=== PATIENT | female | born 1975 | race Two or more races ===

== ENCOUNTER 2016-11-06 20:00 | Observation (INO) | payer OTHER ==
[2016-09-12 04:50] VITALS: BP 115/58
[~2016-11-06] VITALS: Ht 152.4 cm; Wt 80.7 kg
[~2016-11-06 20:00] MED LIST: AMOX1TAB61 PO; AZIT250T6 PO; CALC200T3 PO; GLYB5TAB3 PO; LEVO150T5 PO; LEVO175T5 PO; METF500T4 PO; MULT-246 PO; NORE1TAB11 PO; OXYC-323 PO; PNV1TABL25 PO; PROAIR HFA8.5 GM INH; RANI150T2 PO; RANI150T6 PO
[2016-11-06] MEDS: IV RINGERS,LACTATED 1000ML 1,000 ML IV SCH (20:25)
[2016-11-06] MEDS ORDERED: FENTANYL PF 100 MCG/2 ML VIAL. ONE (21:04)
[2016-11-06] MEDS ORDERED: FENTANYL PF 100 MCG/2 ML VIAL. IV ONE (22:30)
[2016-11-06 22:42] LABS: BASO % 0 % (0-3); BILIRUBIN,URINE NEGATIVE (NEG); EOS % 1 % (0-3); GLUCOSE,URINE NEGATIVE (NEG); HEMATOCRIT 37.3 % (36.0-47.0); HEMOGLOBIN 11.6 g/dL (12.0-15.5); LYMPH # 2.9 x10^3/uL (1.0-4.8); LYMPH % 18 % (24-48); MEAN CORPUSCULAR HEMOGLOBIN 26 pg (25-35); MEAN CORPUSCULAR HGB CONC 31 g/dL (31-37); MEAN CORPUSCULAR VOLUME 82 fL (79-100); MONO % 5 % (0-9); NEUT % 76 % (31-73); NITRITE,URINE NEGATIVE (NEG); PH,URINE 6.5; PLATELET COUNT 352 x10^3/uL (140-400); PROTEIN,URINE NEGATIVE (NEG-TRACE); RED BLOOD COUNT 4.54 x10^6/uL (3.50-5.40); RED CELL DISTRIBUTION WIDTH 15.3 % (11.5-14.5); UROBILINOGEN,URINE 0.2 mg/dL (0.2 mg/dL); WHITE BLOOD COUNT 16.2 x10^3/uL (4.0-11.0)
[2016-11-06 22:47] LABS: BACTERIA,URINE FEW /HPF (0-FEW); RBC,URINE OCC /HPF (0-2); SQUAMOUS EPITHELIAL CELL,UR MOD /LPF
[2016-11-06 22:58] LABS: ALBUMIN/GLOBULIN RATIO 0.7 (1.0-1.7); CALCIUM 9.1 mg/dL (8.5-10.1); CREATININE 0.7 mg/dL (0.6-1.0); GFR 92.7; POTASSIUM 4.3 mmol/L (3.5-5.1); TOTAL BILIRUBIN 0.3 mg/dL (0.2-1.0); TOTAL PROTEIN 7.3 g/dL (6.4-8.2)
[2016-11-07] MEDS ORDERED: ZOLPIDEM 5 MG TABLET. PO PRN ×2 (00:45)
[2016-11-07] MEDS ORDERED: CEFAZOLIN 1GM IVPB FOR OMNI 50 ML IV ONE (01:00)
[2016-11-07] MEDS: IV RINGERS,LACTATED 1000ML 1,000 ML IV SCH (01:04)
--- NOTE | 2016-11-07 01:40 | RAD ---
PROCEDURE OB ultrasound dated 11/06/2016. HISTORY Pelvic pressure started at 6 o'clock this evening. Evaluate cervical length. TECHNIQUE Transabdominal and transvaginal imaging performed. COMPARISON None. FINDINGS Single intrauterine gestation identified in cephalic presentation. Positive movement and cardiac activity. The heart rate is estimated at 147 beats per minute. Amniotic fluid volume appears appropriate. The placenta is posterior in location without evidence of placenta previa. Cervical length is estimated at 5 centimeter. Possible small fibroid at the right lateral uterine body measuring about 2.1 centimeter maximum dimension. Biometric data is as follows. BPD 5.3 centimeter 22 weeks 1 day. HC 20.0 centimeter 22 weeks 1 day. AC 17.0 centimeter 22 weeks 0 days. FL 4.1 centimeter 23 weeks 3 days. Overall, the estimated sonographic gestational age is 22 weeks 3 days for an estimated sonographic date of delivery of 03/09/2017. brain not well evaluated due to poor imaging plane. spine unremarkable. There is a 3 vessel cord. stomach, urinary bladder and both kidneys are seen. There is a 4 chamber heart. There is a somewhat bulbous appearance extending laterally on the right atrium which is of uncertain the etiology. This is seen on several images. IMPRESSION - Single viable intrauterine gestation with estimated sonographic gestational age of 22 weeks 3 days. - Somewhat bulbous appearance of the right atrium, of uncertain etiology. This is not well characterized but could represent prominent atrial appendage or other right atrial anomaly. Suggest a dedicated cardiac scan to better evaluate. - Cervical length is estimated at 5 centimeter. Electronically signed by: Eladio Wei (Nov 07, 2016 01:38:52)
--- NOTE | 2016-11-07 08:59 | PDOC1 ---
OB - History Hx of Present Care: Good Care Ultrasounds: Normal mid trimester US, Abnormal US findings (septate uterus/PTL H/O) Obstetrical Complications: Other (as above) Medical Complications: None Past Family/Social History * Past Medical, Surgical, Family and Obstetric Histories reviewed from chart. Rubella: Immune RPR/VDRL: Negative GBS Status: Unknown HBsAG: Negative OB - Chief Complaint & HPI Date of Admission: Date of Admission: Nov 06, 2016 at 20:00 Chief Complaint/History : 2 Para: 1 EDC: Mar 06, 2017 Reason for admission: observation Admission Nurse Assessment Rev: Yes Problems: OB - Admission Exam Physical Exam Vitals: VS - Last 72 Hours, by Label Date Time Temp Pulse Resp B/P Pulse Ox O2 Delivery O2 Flow Rate FiO2 11/06/16 21:14 18 Room Air HEENT: Normal, Nasal Mucosa Normal, Oropharynx Normal, Moist Membranes, Fontanelles Normal Heart: Regular Rate Lungs: Clear, Equal Extremities: Normal Pulses, No tenderness or swelling Reflexes: Normal Cervical Dilatation: None Effacement: 0% Station: Ballotable Membranes: Intact Assessment/Plan Assessment/Plan 23 wk IUP Observation for PTL and pelvic pain DELL NIEVES MD Nov 07, 2016 08:59
--- NOTE | 2016-11-07 09:00 | PDOC3 ---
OB DISCHARGE SUMMARY DATE OF ADMISSION: 11/06/16 DATE OF DISCHARGE: 11/07/16 REASON FOR ADMISSION: Observation/evaluation PROCEDURES: Ultrasound DISCHARGE DIAGNOSIS: Others (Stable) DISCHARGE INFORMATION: Activity HOSPITAL COURSE unremarkable CONDITION AT DISCHARGE Stable DELL NIEVES MD Nov 07, 2016 09:00
== END 2016-11-07 09:50 | disposition home or self-care (01) ==
LOC: 3 SO LND 20:00 → MERGE 20:00
PROVIDERS: ADMIT Specialist; ATTEND Specialist
DX: O26.892 Other specified pregnancy related conditions, second trimester (principal); R10.2 Pelvic and perineal pain; Z3A.22 22 weeks gestation of pregnancy
CPT/HCPCS: 36415; 76805; 80053; 81001; 85027; 87086; 96361; 96365; G0378; G0379; J0690; J3010; J7120

== ENCOUNTER 2016-11-16 01:26 | Observation (INO) | payer OTHER ==
[2016-09-12 04:50] VITALS: BP 115/58
[2016-11-16] MEDS ORDERED: IV RINGERS,LACTATED 1000ML 1,000 ML IV SCH (01:45)
[2016-11-16 02:03] LABS: BILIRUBIN,URINE NEGATIVE (NEG); GLUCOSE,URINE NEGATIVE (NEG); NITRITE,URINE NEGATIVE (NEG); PROTEIN,URINE NEGATIVE (NEG-TRACE); UROBILINOGEN,URINE 0.2 mg/dL (0.2 mg/dL)
[2016-11-16 02:11] LABS: BARBITURATES NEG (NEG); BENZODIAZEPINES NEG (NEG); CANNABINOIDS NEG (NEG); COCAINE NEG (NEG); METHADONE NEG (NEG); OPIATES POS (NEG); PHENCYCLIDINE NEG (NEG)
[2016-11-16 02:14] LABS: ETHANOL, URINE NEG (NEG)
[2016-11-16 02:23] LABS: BACTERIA,URINE MODERATE /HPF (0-FEW); SQUAMOUS EPITHELIAL CELL,UR MOD /LPF
== END 2016-11-16 02:50 | disposition home or self-care (01) ==
LOC: 3 SO LND 01:26
PROVIDERS: ADMIT Specialist; ATTEND Specialist
DX: O26.892 Other specified pregnancy related conditions, second trimester (principal); R10.30 Lower abdominal pain, unspecified; M54.9 Dorsalgia, unspecified; Z3A.24 24 weeks gestation of pregnancy
CPT/HCPCS: 81001; 87086; G0378; G0379; G0481

== ENCOUNTER 2016-12-03 18:11 | Observation (INO) | payer OTHER ==
[2016-09-12 04:50] VITALS: BP 115/58
[2016-12-03 19:05] LABS: BILIRUBIN,URINE NEGATIVE (NEG); GLUCOSE,URINE >=1000 mg/dL (NEG); NITRITE,URINE NEGATIVE (NEG); PROTEIN,URINE 30 mg/dL (NEG-TRACE); UROBILINOGEN,URINE 0.2 mg/dL (0.2 mg/dL)
[2016-12-03 19:10] LABS: BARBITURATES NEG (NEG); BENZODIAZEPINES NEG (NEG); CANNABINOIDS NEG (NEG); COCAINE NEG (NEG); METHADONE NEG (NEG); NEG OBC AMNIO NEG; OPIATES NEG (NEG); PHENCYCLIDINE NEG (NEG); POS OBC AMNIO POS
[2016-12-03 19:11] LABS: ETHANOL, URINE NEG (NEG)
[2016-12-03 19:12] LABS: BACTERIA,URINE FEW /HPF (0-FEW); RBC,URINE 0 /HPF (0-2); SQUAMOUS EPITHELIAL CELL,UR MOD /LPF
[2016-12-03] MEDS: IV RINGERS,LACTATED 1000ML 1,000 ML IV SCH ×2 (19:45→20:43)
== END 2016-12-03 21:51 | disposition home or self-care (01) ==
LOC: 3 SO LND 18:11
PROVIDERS: ADMIT Specialist; ATTEND Specialist
DX: O26.892 Other specified pregnancy related conditions, second trimester (principal); R10.9 Unspecified abdominal pain; Z3A.26 26 weeks gestation of pregnancy
CPT/HCPCS: 36415; 81001; 82947; 84112; 96360; 96361; G0378; G0379; G0481; J7120

== ENCOUNTER 2016-12-22 03:18 | Observation (INO) | payer OTHER ==
[2016-09-12 04:50] VITALS: BP 115/58
[2016-12-22] MEDS ORDERED: IV RINGERS,LACTATED 1000ML 1,000 ML IV SCH (03:45)
[2016-12-22 04:04] LABS: BILIRUBIN,URINE NEGATIVE (NEG); GLUCOSE,URINE 250 mg/dL (NEG); NITRITE,URINE NEGATIVE (NEG); PROTEIN,URINE 30 mg/dL (NEG-TRACE); UROBILINOGEN,URINE 0.2 mg/dL (0.2 mg/dL)
[2016-12-22 04:18] LABS: BARBITURATES NEG (NEG); CANNABINOIDS NEG (NEG); COCAINE NEG (NEG); METHADONE NEG (NEG); OPIATES NEG (NEG); PHENCYCLIDINE NEG (NEG)
[2016-12-22 04:30] LABS: BENZODIAZEPINES NEG (NEG)
[2016-12-22 04:59] LABS: BACTERIA,URINE MODERATE /HPF (0-FEW); SQUAMOUS EPITHELIAL CELL,UR MANY /LPF
[2016-12-22 05:35] LABS: ETHANOL, URINE NEG (NEG)
== END 2016-12-22 05:30 | disposition home or self-care (01) ==
LOC: 3 SO LND 03:18
PROVIDERS: ADMIT Specialist; ATTEND Specialist
DX: O62.9 Abnormality of forces of labor, unspecified (principal); O26.893 Other specified pregnancy related conditions, third trimester; R10.9 Unspecified abdominal pain; M54.9 Dorsalgia, unspecified; Z3A.29 29 weeks gestation of pregnancy
CPT/HCPCS: 81001; 87086; G0378; G0379; G0481

== ENCOUNTER 2017-01-22 08:23 | Observation (INO) | payer OTHER ==
[2016-09-12 04:50] VITALS: BP 115/58
[2017-01-22] MEDS ORDERED: IV RINGERS,LACTATED 1000ML 1,000 ML IV PRN (09:30)
[2017-01-22 09:31] LABS: BILIRUBIN,URINE NEGATIVE (NEG); GLUCOSE,URINE NEGATIVE (NEG); NITRITE,URINE NEGATIVE (NEG); PH,URINE 6.5; PROTEIN,URINE 100 mg/dL (NEG-TRACE); UROBILINOGEN,URINE 0.2 mg/dL (0.2 mg/dL)
[2017-01-22 10:07] LABS: BACTERIA,URINE MANY /HPF (0-FEW); RBC,URINE OCC /HPF (0-2); SQUAMOUS EPITHELIAL CELL,UR MANY /LPF
== END 2017-01-22 15:30 | disposition home or self-care (01) ==
LOC: 3 SO LND 08:23
PROVIDERS: ADMIT Specialist; ATTEND Specialist
DX: O26.893 Other specified pregnancy related conditions, third trimester (principal); M54.5 Low back pain; R10.11 Right upper quadrant pain; Z3A.33 33 weeks gestation of pregnancy
CPT/HCPCS: 81001; 82947; 87086; 96365; G0378; G0379; J3230; J7120

== ENCOUNTER 2017-02-02 02:42 | Observation (INO) | payer OTHER ==
[2016-09-12 04:50] VITALS: BP 115/58
[2017-02-02] MEDS ORDERED: IV RINGERS,LACTATED 1000ML 1,000 ML IV SCH (03:00)
[2017-02-02 03:09] LABS: BILIRUBIN,URINE NEGATIVE (NEG); GLUCOSE,URINE NEGATIVE (NEG); NITRITE,URINE NEGATIVE (NEG); PH,URINE 6.5; PROTEIN,URINE 100 mg/dL (NEG-TRACE); UROBILINOGEN,URINE 0.2 mg/dL (0.2 mg/dL)
[2017-02-02 03:17] LABS: BARBITURATES NEG (NEG); BENZODIAZEPINES NEG (NEG); CANNABINOIDS NEG (NEG); COCAINE NEG (NEG); METHADONE NEG (NEG); OPIATES NEG (NEG); PHENCYCLIDINE NEG (NEG)
[2017-02-02 03:34] LABS: BACTERIA,URINE MODERATE /HPF (0-FEW); SQUAMOUS EPITHELIAL CELL,UR FEW /LPF
[2017-02-02] MEDS ORDERED: hydrOXYzine PAMOATE 25 MG CAPSULE PO PRN (04:15)
== END 2017-02-02 08:15 | disposition home or self-care (01) ==
LOC: 3 SO LND 02:42
PROVIDERS: ADMIT Specialist; ATTEND Specialist
DX: O26.893 Other specified pregnancy related conditions, third trimester (principal); R10.9 Unspecified abdominal pain; Z3A.35 35 weeks gestation of pregnancy
CPT/HCPCS: 81001; 82962; 87086; 96360; 96361; G0378; G0379; G0481; Q0177; J7120

== ENCOUNTER 2017-08-18 17:00 | Emergency (ER) | payer OTHER ==
[~2017-08-18] VITALS: Ht 152.4 cm; Wt 80.7 kg
--- NOTE | 2017-08-18 17:19 | PHYS DOC ---
Past Medical History Past Medical History: Diabetes-Type II, Hypothyroid Additional Past Medical Histor: controlled DM,ovarian cyst Past Surgical History: Additional Past Surgical Histo: skin ca removed from R FA, cerclage Alcohol Use: None Drug Use: None Adult General Chief Complaint Chief Complaint: NAUSEA/VOMITING/DIARRHA HPI HPI Patient is a 42 year old female with a history of diabetes presents the ED complaining of vomiting 8 hours. Patient states she woke up this morning and has been vomiting all day. Nonbloody/nonbilious. Complains of pain to right upper abdomen. States she hasn't been unable to eat anything at all today. Her last meal was corn tortillas. States nobody else sick with similar symptoms. Denies fever, blood in stool, chest pain, shortness of breath, dizziness, weakness, headache. Review of Systems Review of Systems Constitutional: Denies fever or chills [] Eyes: Denies change in visual acuity, redness, or eye pain [] HENT: Denies nasal congestion or sore throat [] Respiratory: Denies cough or shortness of breath [] Cardiovascular: No additional information not addressed in HPI [] GI: Complains of abdominal pain and vomiting. Denies bloody stools or diarrhea [ ] : Denies dysuria or hematuria [] Musculoskeletal: Denies back pain or joint pain [] Integument: Denies rash or skin lesions [] Neurologic: Denies headache, focal weakness or sensory changes [] Endocrine: Denies polyuria or polydipsia [] All other systems were reviewed and found to be within normal limits, except as documented in this note. Current Medications Current Medications Current Medications Medications (Trade) Dose Ordered Sig/Trung Start Time Stop Time Status Last Admin Dose Admin Famotidine (Pepcid Vial) 20 mg 1X ONCE 08/18/17 17:45 08/18/17 17:46 DC 08/18/17 17:34 20 MG Info (Do NOT chart on this entry -- for MONITORING) 1 each PRN DAILY PRN 08/18/17 18:30 08/18/17 20:59 DC Iohexol (Omnipaque 300 Mg/ml) 100 ml STK-MED ONCE 08/18/17 18:18 08/18/17 18:19 DC Morphine Sulfate 2 mg 1X ONCE 08/18/17 17:45 08/18/17 17:46 DC 12/19/17 17:35 2 MG Ondansetron HCl (Zofran) 4 mg 1X ONCE 08/18/17 17:30 08/18/17 17:31 DC 08/18/17 17:34 4 MG Sodium Chloride 1,000 ml @ 1,000 mls/hr 1X ONCE 08/18/17 17:30 08/18/17 18:29 DC 08/18/17 17:33 1,000 MLS/HR Allergies Allergies Allergies Coded Allergies Type Severity Reaction Last Updated Verified aspirin Allergy Intermediate Rash 04/18/16 Yes dextromethorphan Allergy Intermediate rash 04/18/16 Yes doxylamine Allergy Intermediate rash 04/18/16 Yes pseudoephedrine Allergy Intermediate rash 04/18/16 Yes Physical Exam Physical Exam Constitutional: Well developed, well nourished, no acute distress, non-toxic appearance. [] HENT: Normocephalic, atraumatic, bilateral external ears normal, oropharynx moist, no oral exudates, nose normal. [] Eyes: PERRLA, EOMI, conjunctiva normal, no discharge. [] Neck: Normal range of motion, no tenderness, supple, no stridor. [] Cardiovascular:Heart rate regular rhythm, no murmur [] Lungs & Thorax: Bilateral breath sounds clear to auscultation [] Abdomen: Bowel sounds normal, soft, MILD RUQ TENDERNESS, no masses, no pulsatile masses. [] Skin: Warm, dry, no erythema, no rash. [] Back: No tenderness, no CVA tenderness. [] Extremities: No tenderness, no cyanosis, no clubbing, ROM intact, no edema. [] Neurologic: Alert and oriented X 3, normal motor function, normal sensory function, no focal deficits noted. [] Psychologic: Affect normal, judgement normal, mood normal. [] Current Patient Data Vital Signs Vital Signs Date Time Temp Pulse Resp B/P (MAP) Pulse Ox O2 Delivery O2 Flow Rate FiO2 08/18/17 20:30 89 20 127/63 (84) 100 Room Air 08/18/17 17:09 98.2 98.2 Lab Values Laboratory Tests Test 08/18/17 17:05 08/18/17 17:12 08/18/17 17:27 08/18/17 17:50 Urine Collection Type Unknown Urine Color Yellow Urine Clarity Clear Urine pH 5.5 Urine Specific Robinson 1.025 Urine Protein 100 mg/dL (NEG-TRACE) Urine Glucose (UA) Negative mg/dL (NEG) Urine Ketones (Stick) 15 mg/dL (NEG) Urine Blood Negative (NEG) Urine Nitrite Negative (NEG) Urine Bilirubin Negative (NEG) Urine Urobilinogen Dipstick 0.2 mg/dL (0.2 mg/dL) Urine Leukocyte Esterase Small (NEG) Urine RBC Occ /HPF (0-2) Urine WBC 5-10 /HPF (0-4) Urine Squamous Epithelial Cells Many /LPF Urine Bacteria Mod /HPF (0-FEW) Urine Mucus Mod /LPF POC Urine HCG, Qualitative Hcg negative (Negative) White Blood Count 15.9 x10^3/uL (4.0-11.0) H Red Blood Count 4.86 x10^6/uL (3.50-5.40) Hemoglobin 12.3 g/dL (12.0-15.5) Hematocrit 38.3 % (36.0-47.0) Mean Corpuscular Volume 79 fL (79-100) Mean Corpuscular Hemoglobin 25 pg (25-35) Mean Corpuscular Hemoglobin Concent 32 g/dL (31-37) Red Cell Distribution Width 15.2 % (11.5-14.5) H Platelet Count 365 x10^3/uL (140-400) Sodium Level 140 mmol/L (136-145) Potassium Level 4.0 mmol/L (3.5-5.1) Chloride Level 104 mmol/L (98-107) Carbon Dioxide Level 24 mmol/L (21-32) Anion Gap 12 (6-14) Blood Urea Nitrogen 18 mg/dL (7-20) Creatinine 0.7 mg/dL (0.6-1.0) Estimated GFR (Cockcroft-Gault) 92.2 BUN/Creatinine Ratio 26 (6-20) H Glucose Level 131 mg/dL (70-99) H Calcium Level 8.6 mg/dL (8.5-10.1) Total Bilirubin 0.4 mg/dL (0.2-1.0) Aspartate Amino Transferase (AST) 18 U/L (15-37) Alanine Aminotransferase (ALT) 27 U/L (14-59) Alkaline Phosphatase 57 U/L (46-116) Total Protein 8.2 g/dL (6.4-8.2) Albumin 3.4 g/dL (3.4-5.0) Albumin/Globulin Ratio 0.7 (1.0-1.7) L Lipase 146 U/L (73-393) Laboratory Tests 08/18/17 17:27 Laboratory Tests 08/18/17 17:50 EKG EKG [] Radiology/Procedures Radiology/Procedures []PROCEDURE: CT ABD PELV W/ IV CONTRST ONLY PQRS Compliance Statement: One or more of the following individualized dose reduction techniques were utilized for this examination: 1. Automated exposure control 2. Adjustment of the mA and/or kV according to patient size 3. Use of iterative reconstruction technique CT abdomen/pelvis with contrast August 18, 2017 INDICATION: Lateral: Abdominal pain. Vomiting. COMPARISON: Abdominal ultrasound July 06, 2016, CT abdomen/pelvis September 20, 2014 TECHNIQUE: Multiple axial CT images of the abdomen and pelvis were obtained after the intravenous demonstration of 75 cc Omnipaque 300. Coronal and sagittal reformats are provided. FINDINGS: Lung bases are clear. Heart size is within normal limits. The liver is homogeneous without an area of more increased attenuation along the anterior left hepatic lobe which may be related to mild fatty sparing. There is mild hypoattenuation of the hepatic parenchyma suggestive of hepatic steatosis. Spleen, right adrenal gland and pancreas are normal in appearance. Gallbladder is present without adjacent inflammatory changes. There is a new left adrenal nodule measuring 1.7 x 1.4 cm. This finding is indeterminate given attenuation higher than 10 Hounsfield units on this examination. The abdominal aorta is normal in course and caliber. There are no pathologically enlarged lymph nodes in abdomen or pelvis. There is no free fluid or free intraperitoneal air. The kidneys enhance symmetrically. No suspicious renal mass is identified. There is no hydronephrosis. No calculi are identified within the kidneys, ureters or urinary bladder. Small and large bowel are normal in caliber. There is a small hiatal hernia. Suspect a peristaltic wave in the gastric fundus. Normal appendix is visualized. Terminal ileum is normal. No pericolonic inflammatory changes are identified. Tubal ligation changes are noted calcified uterine leiomyoma are present. No adnexal masses are identified. Urinary bladder is within normal limits given degree of distention. No suspicious osseous lesions are identified. IMPRESSION: 1. No acute inflammatory changes are identified in the abdomen or pelvis. Specifically. Appendix is normal in appearance. 2. There is a new left adrenal nodule measuring 1.7 x 1.4 cm which is indeterminate. Further evaluation with adrenal protocol CT or abdominal MRI is recommended on a nonemergent basis. 3. Small hiatal hernia. PROCEDURE: ABDOMEN LTD Limited abdominal ultrasound August 18, 2017 INDICATION: Right upper quadrant abdominal pain. COMPARISON: Ultrasound abdomen July 06, 2016, CT abdomen/pelvis 08/18/2017 TECHNIQUE: Multiple sonographic images of the abdomen are obtained utilizing grayscale and color Doppler. FINDINGS: Pancreas is predominantly obscured by bowel gas. Visualized portions of the head /neck junction are normal. IVC is patent. There is increased echogenicity of the hepatic parenchyma suggestive of hepatic steatosis. There is a hypoechoic lesion in the anterior left hepatic lobe measuring 1.9 x 0.9 cm. This corresponds with an area of increased attenuation on comparison CT and may represent an area of focal fatty sparing. There is hepatopedal flow within the portal venous system. Calcified gallstones are identified within the gallbladder. There is no gallbladder wall thickening. No pericholecystic fluid. Common bile duct measures 4 mm, within normal limits. Right kidney measures 12.8 x 5.2 x 4.6 cm. No suspicious renal masses are identified. No hydronephrosis or renal calculi. The graft there is no free fluid in the right upper quadrant. IMPRESSION: Increased echogenicity of the hepatic parenchyma suggestive of hepatocellular disease, most commonly hepatic steatosis. This limits evaluation for underlying hepatic masses. There is a hypoechoic area along the anterior left hepatic lobe measuring 1.9 x 0.9 cm. This corresponds with an area of hyperattenuation on comparison CT. Most likely consideration would include an area of focal fatty sparing. However, in the presence of elevated LFTs, further evaluation with abdominal MRI may be of benefit to assess multiphase characteristics. Course & Med Decision Making Course & Med Decision Making Pertinent Labs and Imaging studies reviewed. (See chart for details) []Discussed lab and imaging findings with patient. Patient states she is feeling much better. On reexamination, Abdomen is soft nontender nondistended. No peritoneal signs. Tolerating by mouth. Liver enzymes are not elevated. Emergent MRI not required. Discussed the need to obtain an outpatient MRI with PCP for further evaluation of liver imaging findings. States she will see her this week (Provided imaging reports to patient ). Provided contact information and education for GI follow-up. Discussed reasons to return to the ED. Patient understands and agrees with plan. Family at bedside. States she is out of her insulin that she takes at nighttime. Will discharge with prescription for insulin refill. (Lantus 20 units at nighttime.) Dragon Disclaimer Dragon Disclaimer This electronic medical record was generated, in whole or in part, using a voice recognition dictation system. Departure Departure Impression: Primary Impression: Nausea & vomiting Additional Impression: Urinary tract infection Disposition: HOME, SELF-CARE Condition: IMPROVED Referrals: UNKNOWN PCP NAME (PCP) AUSTIN ZAPATA MD, SCOTT S MD Patient Instructions: Nausea and Vomiting, Urinary Tract Infection Scripts Nitrofurantoin Monohyd/M-Cryst (MACROBID 100 MG CAPSULE) 100 Mg Capsule 1 CAP PO BID, #14 CAP Prov: ELVIA EPPS 08/18/17 Ondansetron (ZOFRAN ODT) 4 Mg Tab.rapdis 1 TAB SL Q8HRS, #15 TAB Prov: ELVIA EPPS 08/18/17 Problem Qualifiers ELVIA EPPS Aug 18, 2017 17:19
[2017-08-18 17:24] LABS: BILIRUBIN,URINE NEGATIVE (NEG); GLUCOSE,URINE NEGATIVE (NEG); NITRITE,URINE NEGATIVE (NEG); PH,URINE 5.5; PROTEIN,URINE 100 mg/dL (NEG-TRACE); UROBILINOGEN,URINE 0.2 mg/dL (0.2 mg/dL)
[2017-08-18] MEDS ORDERED: IV NORMAL SALINE 1000ML BAG 1,000 ML IV ONE (17:30)
[2017-08-18] MEDS ORDERED: ONDANSETRON PF 4 MG/2 ML VIAL. IV ONE (17:30)
[2017-08-18 17:35] LABS: HEMATOCRIT 38.3 % (36.0-47.0); HEMOGLOBIN 12.3 g/dL (12.0-15.5); RED BLOOD COUNT 4.86 x10^6/uL (3.50-5.40); RED CELL DISTRIBUTION WIDTH 15.2 % (11.5-14.5); WHITE BLOOD COUNT 15.9 x10^3/uL (4.0-11.0)
[2017-08-18 17:40] LABS: BACTERIA,URINE MOD /HPF (0-FEW); RBC,URINE OCC /HPF (0-2); SQUAMOUS EPITHELIAL CELL,UR MANY /LPF
[2017-08-18] MEDS ORDERED: MORPHINE SULFATE 2 MG/ML DISP.SYRIN. IV ONE (17:45)
[2017-08-18] MEDS ORDERED: FAMOTIDINE 20 MG/2 ML VIAL IVP ONE (17:45)
[2017-08-18 18:11] LABS: CALCIUM 8.6 mg/dL (8.5-10.1); CREATININE 0.7 mg/dL (0.6-1.0); GFR 92.2
[2017-08-18 18:17] LABS: ALBUMIN 3.4 g/dL (3.4-5.0); ALBUMIN/GLOBULIN RATIO 0.7 (1.0-1.7); TOTAL BILIRUBIN 0.4 mg/dL (0.2-1.0); TOTAL PROTEIN 8.2 g/dL (6.4-8.2)
[2017-08-18] MEDS ORDERED: IOHEXOL 300 MG/ML 100ML VIAL. ONE (18:18)
[2017-08-18] MEDS ORDERED: CONTRAST GIVEN MC PRN (18:30)
[2017-08-18] MEDS ORDERED: IOHEXOL 300 MG/ML 100ML VIAL. IV ONE (18:30)
--- NOTE | 2017-08-18 18:47 | RAD ---
PQRS Compliance Statement: One or more of the following individualized dose reduction techniques were utilized for this examination: 1. Automated exposure control 2. Adjustment of the mA and/or kV according to patient size 3. Use of iterative reconstruction technique CT abdomen/pelvis with contrast August 18, 2017 INDICATION: Lateral: Abdominal pain. Vomiting. COMPARISON: Abdominal ultrasound July 06, 2016, CT abdomen/pelvis September 20, 2014 TECHNIQUE: Multiple axial CT images of the abdomen and pelvis were obtained after the intravenous demonstration of 75 cc Omnipaque 300. Coronal and sagittal reformats are provided. FINDINGS: Lung bases are clear. Heart size is within normal limits. The liver is homogeneous without an area of more increased attenuation along the anterior left hepatic lobe which may be related to mild fatty sparing. There is mild hypoattenuation of the hepatic parenchyma suggestive of hepatic steatosis. Spleen, right adrenal gland and pancreas are normal in appearance. Gallbladder is present without adjacent inflammatory changes. There is a new left adrenal nodule measuring 1.7 x 1.4 cm. This finding is indeterminate given attenuation higher than 10 Hounsfield units on this examination. The abdominal aorta is normal in course and caliber. There are no pathologically enlarged lymph nodes in abdomen or pelvis. There is no free fluid or free intraperitoneal air. The kidneys enhance symmetrically. No suspicious renal mass is identified. There is no hydronephrosis. No calculi are identified within the kidneys, ureters or urinary bladder. Small and large bowel are normal in caliber. There is a small hiatal hernia. Suspect a peristaltic wave in the gastric fundus. Normal appendix is visualized. Terminal ileum is normal. No pericolonic inflammatory changes are identified. Tubal ligation changes are noted calcified uterine leiomyoma are present. No adnexal masses are identified. Urinary bladder is within normal limits given degree of distention. No suspicious osseous lesions are identified. IMPRESSION: 1. No acute inflammatory changes are identified in the abdomen or pelvis. Specifically. Appendix is normal in appearance. 2. There is a new left adrenal nodule measuring 1.7 x 1.4 cm which is indeterminate. Further evaluation with adrenal protocol CT or abdominal MRI is recommended on a nonemergent basis. 3. Small hiatal hernia. Electronically signed by: Pavithra Willett MD (08/18/2017 6:43 PM) [facility]
--- NOTE | 2017-08-18 19:58 | RAD ---
Limited abdominal ultrasound August 18, 2017 INDICATION: Right upper quadrant abdominal pain. COMPARISON: Ultrasound abdomen July 06, 2016, CT abdomen/pelvis 08/18/2017 TECHNIQUE: Multiple sonographic images of the abdomen are obtained utilizing grayscale and color Doppler. FINDINGS: Pancreas is predominantly obscured by bowel gas. Visualized portions of the head /neck junction are normal. IVC is patent. There is increased echogenicity of the hepatic parenchyma suggestive of hepatic steatosis. There is a hypoechoic lesion in the anterior left hepatic lobe measuring 1.9 x 0.9 cm. This corresponds with an area of increased attenuation on comparison CT and may represent an area of focal fatty sparing. There is hepatopedal flow within the portal venous system. Calcified gallstones are identified within the gallbladder. There is no gallbladder wall thickening. No pericholecystic fluid. Common bile duct measures 4 mm, within normal limits. Right kidney measures 12.8 x 5.2 x 4.6 cm. No suspicious renal masses are identified. No hydronephrosis or renal calculi. The graft there is no free fluid in the right upper quadrant. IMPRESSION: Increased echogenicity of the hepatic parenchyma suggestive of hepatocellular disease, most commonly hepatic steatosis. This limits evaluation for underlying hepatic masses. There is a hypoechoic area along the anterior left hepatic lobe measuring 1.9 x 0.9 cm. This corresponds with an area of hyperattenuation on comparison CT. Most likely consideration would include an area of focal fatty sparing. However, in the presence of elevated LFTs, further evaluation with abdominal MRI may be of benefit to assess multiphase characteristics. Electronically signed by: Pavithra Willett MD (08/18/2017 7:55 PM) [facility]
[2017-08-18 20:30] VITALS: BP 127/63
[2017-08-18] MEDS ORDERED: NITR100C62 PO (20:38)
[2017-08-18] MEDS ORDERED: ONDA4TAB10 SL (20:38)
== END 2017-08-18 20:50 | disposition home or self-care (01) ==
LOC: ER 17:00
DX: N39.0 Urinary tract infection, site not specified (principal); R11.2 Nausea with vomiting, unspecified; E03.9 Hypothyroidism, unspecified; E11.9 Type 2 diabetes mellitus without complications; Z79.4 Long term (current) use of insulin; Z88.6 Allergy status to analgesic agent; Z88.8 Allergy status to other drugs, medicaments and biological substances
CPT/HCPCS: 36415; 74177; 76705; 80053; 81001; 81025; 83690; 85027; 96361; 96374; 96375; 99285; J2270; J2405; J7030; Q9967; S0028

== ENCOUNTER 2018-07-13 17:18 | Emergency (ER) | payer OTHER ==
[~2018-07-13] VITALS: Ht 154.9 cm; Wt 75.4 kg
[~2018-07-13 17:18] MED LIST changes: +METF500T16 PO; -METF500T4 PO; +NITR100C62 PO; +ONDA4TAB10 SL; +RANI150T21 PO; -RANI150T6 PO
[2018-07-13 17:20] VITALS: BP 152/73
[2018-07-13] MEDS ORDERED: HYDR-971 PO (17:59)
[2018-07-13] MEDS ORDERED: PENI500T PO (17:59)
--- NOTE | 2018-07-13 18:00 | PHYS DOC ---
Past Medical History Past Medical History: Diabetes-Type II, Hypothyroid, Stroke Additional Past Medical Histor: controlled DM,ovarian cyst Past Surgical History: Additional Past Surgical Histo: skin ca removed from R FA, cerclage Alcohol Use: None Drug Use: None Adult General Chief Complaint Chief Complaint: FACE PAIN [place] [employer] HPI Patient is a 43 year old female who presents with left facial pain along her cheek area there last week. Patient states that is tender to touch. Patient denies dental pain but does have dental caries in the upper left side and broken teeth. Patient's been taking ibuprofen. Patient is allergic to aspirin and NyQuil. States that she does have a upcoming dental appointment. Review of Systems Review of Systems Constitutional: Denies fever or chills [] Eyes: Denies change in visual acuity, redness, or eye pain [] HENT: Denies nasal congestion or sore throat [] Respiratory: Denies cough or shortness of breath [] Cardiovascular: No additional information not addressed in HPI [] GI: Denies abdominal pain, nausea, vomiting, bloody stools or diarrhea [] : Denies dysuria or hematuria [] Musculoskeletal: Left face pain. Denies back pain or joint pain [] Integument: Denies rash or skin lesions [] Neurologic: Denies headache, focal weakness or sensory changes [] Endocrine: Denies polyuria or polydipsia [] All other systems were reviewed and found to be within normal limits, except as documented in this note. Allergies Allergies Allergies Coded Allergies Type Severity Reaction Last Updated Verified aspirin Allergy Intermediate Rash 04/18/16 Yes dextromethorphan Allergy Intermediate rash 04/18/16 Yes doxylamine Allergy Intermediate rash 04/18/16 Yes pseudoephedrine Allergy Intermediate rash 04/18/16 Yes Physical Exam Physical Exam Constitutional: Well developed, well nourished, no acute distress, non-toxic appearance. [] HENT: Left facial swelling and pain with palpation. Broken, black left upper back teeth. Normocephalic, atraumatic, bilateral external ears normal, oropharynx moist, no oral exudates, nose normal. [] Eyes: PERRLA, EOMI, conjunctiva normal, no discharge. [] Neck: Normal range of motion, no tenderness, supple, no stridor. [] Cardiovascular:Heart rate regular rhythm, no murmur [] Lungs & Thorax: Bilateral breath sounds clear to auscultation [] Abdomen: Bowel sounds normal, soft, no tenderness, no masses, no pulsatile masses. [] Skin: Warm, dry, no erythema, no rash. [] Back: No tenderness, no CVA tenderness. [] Extremities: No tenderness, no cyanosis, no clubbing, ROM intact, no edema. [] Neurologic: Alert and oriented X 3, normal motor function, normal sensory function, no focal deficits noted. [] Psychologic: Affect normal, judgement normal, mood normal. [] Current Patient Data Vital Signs Vital Signs Date Time Temp Pulse Resp B/P (MAP) Pulse Ox O2 Delivery O2 Flow Rate FiO2 07/13/18 17:20 98.8 90 16 152/73 (99) 98 Room Air 98.8 EKG EKG [] Radiology/Procedures Radiology/Procedures [] Course & Med Decision Making Course & Med Decision Making Patient is a 43 year old female who presents with left facial pain along her cheek area there last week. Patient states that is tender to touch. Patient denies dental pain but does have dental caries in the upper left side and broken teeth. Patient's been taking ibuprofen. Patient is allergic to aspirin and NyQuil. States that she does have a upcoming dental appointment. Neurologically intact. PERRLA. There is swelling to the left side of her face and tenderness with palpation to the left cheek bone area. Patient is afebrile. Patient denies any recent illness or nasal congestion or cough. Alert and oriented. Skin is pink warm and dry. When looking inside her mouth patient has left upper teeth in the back that are broken off and black in color. The gum is inflamed. Patient's temperature for penicillin and is told to follow-up with her dentist as scheduled. Patient is stable and in no distress. [] Dragon Disclaimer Dragon Disclaimer This electronic medical record was generated, in whole or in part, using a voice recognition dictation system. Departure Departure Impression: Primary Impression: Facial pain Additional Impression: Dental abscess Disposition: 01 HOME, SELF-CARE Condition: STABLE Referrals: UNKNOWN PCP NAME (PCP) Patient Instructions: Dental Abscess, Dental Caries Additional Instructions: Keep your scheduled dental appointment this week. Take medications as prescribed. Scripts Hydrocodone/Apap 5-325 (NORCO 5-325 TABLET) 1 Each Tablet 1 TAB PO PRN Q6HRS PRN for PAIN, #10 TAB 0 Refills Prov: RASHID OBRIEN APRN 07/13/18 Penicillin V Potassium (PENICILLIN V POTASSIUM) 500 Mg Tablet 1 TAB PO QID, #40 TAB Prov: RASHDI OBRIEN APRN 07/13/18 Problem Qualifiers RASHID OBRIEN APRN Jul 13, 2018 18:00
== END 2018-07-13 17:56 | disposition home or self-care (01) ==
LOC: ER 17:18
DX: R51 Headache (principal); K04.7 Periapical abscess without sinus; E11.9 Type 2 diabetes mellitus without complications; E03.9 Hypothyroidism, unspecified; Z86.73 Personal history of transient ischemic attack (TIA), and cerebral infarction without residual deficits; Z88.6 Allergy status to analgesic agent; Z88.8 Allergy status to other drugs, medicaments and biological substances
CPT/HCPCS: 99283

== ENCOUNTER 2018-08-04 17:03 | Emergency (ER) | payer OTHER ==
[~2018-08-04] VITALS: Ht 154.9 cm; Wt 75.3 kg
[~2018-08-04 17:03] MED LIST changes: +HYDR-3164 PO; -OXYC-323 PO; +OXYC1TAB15 PO; +PENI500T PO
[2018-08-04 17:39] LABS: BASO # 0.1 x10^3/uL (0.0-0.2); BASO % 1 % (0-3); EOS # 0.1 x10^3/uL (0.0-0.7); EOS % 1 % (0-3); HEMOGLOBIN 9.7 g/dL (12.0-15.5); LYMPH # 2.8 x10^3/uL (1.0-4.8); LYMPH % 20 % (24-48); MEAN CORPUSCULAR HEMOGLOBIN 21 pg (25-35); MEAN CORPUSCULAR HGB CONC 32 g/dL (31-37); MEAN CORPUSCULAR VOLUME 67 fL (79-100); MONO # 0.7 x10^3/uL (0.0-1.1); MONO % 5 % (0-9); NEUT # 10.5 x10^3uL (1.8-7.7); NEUT % 74 % (31-73); PLATELET COUNT 393 x10^3/uL (140-400); RED BLOOD COUNT 4.51 x10^6/uL (3.50-5.40); RED CELL DISTRIBUTION WIDTH 23.2 % (11.5-14.5); WHITE BLOOD COUNT 14.2 x10^3/uL (4.0-11.0)
--- NOTE | 2018-08-04 17:42 | PHYS DOC ---
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 Patient states isn't any better this any worse she she's not taking medication for. Patient states she is nauseated especially she smokes a few she is nauseated. Denies fever or vomiting or diarrhea. Denies chest pain or shortness of air. She is on her current menses. Patient rates her non-radiating pain an 8 out of 10. Review of Systems Review of Systems Constitutional: Denies fever or chills [] Eyes: Denies change in visual acuity, redness, or eye pain [] HENT: Denies nasal congestion or sore throat [] Respiratory: Denies cough or shortness of breath [] Cardiovascular: No additional information not addressed in HPI [] GI: Epigastric abdominal pain, nausea, denies vomiting, bloody stools or diarrhea [] : Denies dysuria or hematuria [] Musculoskeletal: Denies back pain or joint pain [] Integument: Denies rash or skin lesions [] Neurologic: Denies headache, focal weakness or sensory changes [] Endocrine: Denies polyuria or polydipsia [] All other systems were reviewed and found to be within normal limits, except as documented in this note. Current Medications Current Medications Current Medications Medications (Trade) Dose Ordered Sig/Trung Start Time Stop Time Status Last Admin Dose Admin Famotidine (Pepcid Vial) 20 mg 1X ONCE 08/04/18 17:45 08/04/18 17:46 DC 08/04/18 17:48 20 MG Fentanyl Citrate (Fentanyl 2ml Vial) 50 mcg 1X ONCE 08/04/18 17:45 08/04/18 17:46 DC 08/04/18 17:48 50 MCG Info (CONTRAST GIVEN -- Rx MONITORING) 1 each PRN DAILY PRN 08/04/18 18:00 12 17:59 Iohexol (Omnipaque 300 Mg/ml) 75 ml 1X ONCE 08/04/18 18:00 12/5/18 18:01 DC 08/04/18 18:07 75 ML Ondansetron HCl (Zofran) 4 mg 1X ONCE 08/04/18 17:45 08/04/18 17:46 DC 08/04/18 17:47 4 MG Sodium Chloride 1,000 ml @ 1,000 mls/hr 1X ONCE 08/04/18 17:45 08/04/18 18:44 DC 08/04/18 17:46 1,000 MLS/HR Allergies Allergies Allergies Coded Allergies Type Severity Reaction Last Updated Verified aspirin Allergy Intermediate Rash 04/18/16 Yes dextromethorphan Allergy Intermediate rash 04/18/16 Yes doxylamine Allergy Intermediate rash 04/18/16 Yes pseudoephedrine Allergy Intermediate rash 04/18/16 Yes Physical Exam Physical Exam Constitutional: Well developed, well nourished, no acute distress, non-toxic appearance. [] HENT: Normocephalic, atraumatic, bilateral external ears normal, oropharynx moist, no oral exudates, nose normal. [] Eyes: PERRLA, EOMI, conjunctiva normal, no discharge. [] Neck: Normal range of motion, no tenderness, supple, no stridor. [] Cardiovascular:Heart rate regular rhythm, no murmur [] Lungs & Thorax: Bilateral breath sounds clear to auscultation [] Abdomen: Bowel sounds normal, soft, epigastric tenderness, no masses, no pulsatile masses. [] Skin: Warm, dry, no erythema, no rash. [] Back: No tenderness, no CVA tenderness. [] Extremities: No tenderness, no cyanosis, no clubbing, ROM intact, no edema. [] Neurologic: Alert and oriented X 3, normal motor function, normal sensory function, no focal deficits noted. [] Psychologic: Affect normal, judgement normal, mood normal. [] Current Patient Data Vital Signs Vital Signs Date Time Temp Pulse Resp B/P (MAP) Pulse Ox O2 Delivery O2 Flow Rate FiO2 08/04/18 17:48 16 99 Room Air 08/04/18 17:15 89 143/73 (96) Lab Values Laboratory Tests Test 08/04/18 17:15 08/04/18 17:35 08/04/18 17:38 Urine Collection Type Unknown Urine Color Yellow Urine Clarity Clear Urine pH 6.0 Urine Specific [place] 1.010 Urine Protein Negative mg/dL (NEG-TRACE) Urine Glucose (UA) Negative mg/dL (NEG) Urine Ketones (Stick) Negative mg/dL (NEG) Urine Blood Large (NEG) Urine Nitrite Negative (NEG) Urine Bilirubin Negative (NEG) Urine Urobilinogen Dipstick 0.2 mg/dL (0.2 mg/dL) Urine Leukocyte Esterase Small (NEG) Urine RBC >40 /HPF (0-2) Urine WBC 1-4 /HPF (0-4) Urine Squamous Epithelial Cells Many /LPF Urine Bacteria Few /HPF (0-FEW) White Blood Count 14.2 x10^3/uL (4.0-11.0) H Red Blood Count 4.51 x10^6/uL (3.50-5.40) Hemoglobin 9.7 g/dL (12.0-15.5) L Hematocrit 30.0 % (36.0-47.0) L Mean Corpuscular Volume 67 fL (79-100) L Mean Corpuscular Hemoglobin 21 pg (25-35) L Mean Corpuscular Hemoglobin Concent 32 g/dL (31-37) Red Cell Distribution Width 23.2 % (11.5-14.5) H Platelet Count 393 x10^3/uL (140-400) Neutrophils (%) (Auto) 74 % (31-73) H Lymphocytes (%) (Auto) 20 % (24-48) L Monocytes (%) (Auto) 5 % (0-9) Eosinophils (%) (Auto) 1 % (0-3) Basophils (%) (Auto) 1 % (0-3) Neutrophils # (Auto) 10.5 x10^3uL (1.8-7.7) H Lymphocytes # (Auto) 2.8 x10^3/uL (1.0-4.8) Monocytes # (Auto) 0.7 x10^3/uL (0.0-1.1) Eosinophils # (Auto) 0.1 x10^3/uL (0.0-0.7) Basophils # (Auto) 0.1 x10^3/uL (0.0-0.2) Segmented Neutrophils % 78 % (35-66) H Lymphocytes % 18 % (24-48) L Monocytes % 4 % (0-10) Platelet Estimate Adequate (ADEQUATE) Polychromasia Slight Hypochromasia Mod Anisocytosis Mod Microcytosis Marked Target Cells Occ Ovalocytes Occ Sodium Level 140 mmol/L (136-145) Potassium Level 3.4 mmol/L (3.5-5.1) L Chloride Level 103 mmol/L (98-107) Carbon Dioxide Level 27 mmol/L (21-32) Anion Gap 10 (6-14) Blood Urea Nitrogen 14 mg/dL (7-20) Creatinine 0.8 mg/dL (0.6-1.0) Estimated GFR (Cockcroft-Gault) 78.7 BUN/Creatinine Ratio 18 (6-20) Glucose Level 132 mg/dL (70-99) H Calcium Level 9.4 mg/dL (8.5-10.1) Total Bilirubin 0.2 mg/dL (0.2-1.0) Aspartate Amino Transferase (AST) 16 U/L (15-37) Alanine Aminotransferase (ALT) 28 U/L (14-59) Alkaline Phosphatase 73 U/L (46-116) Total Protein 8.4 g/dL (6.4-8.2) H Albumin 3.4 g/dL (3.4-5.0) Albumin/Globulin Ratio 0.7 (1.0-1.7) L Lipase 243 U/L (73-393) POC Urine HCG, Qualitative Hcg negative (Negative) Laboratory Tests 08/04/18 17:35 Laboratory Tests 08/04/18 17:35 EKG EKG Sinus rhythm and no STEMI[] Radiology/Procedures Radiology/Procedures [] Impressions: [facility] [address] [place], [place] [id number] IMAGING REPORT Signed PATIENT: EPIFANIO MCARTHUR ACCOUNT: [id number] : 1975 LOCATION: ER AGE: 43 SEX: F EXAM STATUS: REG ER ORD. PHYSICIAN: RASHID OBRIEN APRN REASON: abdominal pain PROCEDURE: CT ABD PELV W/ IV CONTRST ONLY PQRS Compliance statement: One or more of the following individualized dose reduction techniques were utilized for this examination: 1. Automated exposure control. 2. Adjustment of the mA and/or kV according to patient size. 3. Use of iterative reconstruction technique. Indication:EPIGASTRIC ABD PAIN INJ 75ML OMNI 300 PREV SENT TECHNIQUE: CT abdomen and pelvis with IV contrast with multiplanar reformats. COMPARISON: 08/18/2017 FINDINGS: Heart is normal in size. No pericardial or pleural effusion. Clear lung bases. Thickening of the esophageal wall is seen in the GE junction likely from spasm or peristalsis. Liver is mildly enlarged measuring 21.5 cm. No focal hepatic lesion. Spleen, gallbladder, pancreas, right adrenal within normal limits. Enhancing left adrenal gland nodule is seen measuring 2.0 x 1.6 cm, previously 2.2 x 1.[address] from July 2017. This is new when compared to CT from 2014. No nephrolithiasis or hydronephrosis. No enlarged retroperitoneal or pelvic adenopathy. No free pelvic fluid or ascites. No bowel obstruction. Mildly enlarged daren hepatis lymph nodes are seen, nonspecific likely reactive. No pneumoperitoneum. Anteverted uterus with subserosal calcified fibroids in the right lateral uterine body and posterior uterine body. Urinary bladder is within normal limits. No suspicious bony lesion. IMPRESSION: 1. Mild hepatomegaly, nonspecific. 2. Stable left adrenal gland nodule when compared to previous exam from July 2017. This is new from 2015 CT. This is likely adrenal adenoma. Although for definite confirmation MRI of the abdomen with IV contrast is recommended. 3. Couple of subserosal uterine fibroids. Electronically signed by: Edson Guzman DO (08/04/2018 6:19 PM) [facility] DICTATED and SIGNED BY: EDSON GUZMAN DO DATE: 08/04/181810 Course & Med Decision Making Course & Med Decision Making Patient is a 43 year old female who presents with epigastric abdominal pain that is sharp and states the same. Patient states isn't any better this any worse she she's not taking medication for. Patient states she is nauseated especially she smokes a few she is nauseated. Denies fever or vomiting or diarrhea. Denies chest pain or shortness of air. She is on her current menses. Patient rates her non-radiating pain an 8 out of 10. Alert and oriented. Skin warm and dry. Abdomen epigastric abdomen is tender to palpation. Otherwise abdomen is soft and there are no masses felt. Patient's bowel movement was yesterday and it was normal for her. Lungs are clear to auscultation all lobes. Heart rate regular without murmur. Vital signs within normal limits. She denies any headache, tingling or numbness. Afebrile. X-ray shows no acute findings and was read by Dr Cavanaugh. CT shows no new acute findings. Patient is diagnosed with GERD. Patient needs to follow up with her primary care physician and will be given a prescription for Pepcid. Patient currently has no pain or nausea. [] Dragon Disclaimer Dragon Disclaimer This electronic medical record was generated, in whole or in part, using a voice recognition dictation system. Departure Departure Impression: Primary Impression: Epigastric abdominal pain Disposition: HOME, SELF-CARE Condition: STABLE Referrals: UNKNOWN PCP NAME (PCP) GERMAN MOLINA MD Patient Instructions: Heartburn Additional Instructions: Do not eat any spicy or greasy food. Follow up with your primary care. Take medications as prescribed. Scripts Famotidine (PEPCID) 20 Mg Tablet 20 MG PO BID, #20 TAB Prov: RASHID OBRIEN APRN 08/04/18 RASHID OBRIEN APRN Aug 04, 2018 17:42
[2018-08-04 17:44] LABS: BILIRUBIN,URINE NEGATIVE (NEG); CLARITY,URINE CLEAR; COLOR,URINE YELLOW; NITRITE,URINE NEGATIVE (NEG); PROTEIN,URINE NEGATIVE (NEG-TRACE); UROBILINOGEN,URINE 0.2 mg/dL (0.2 mg/dL)
--- NOTE | 2018-08-04 17:44 | EKG ---
[facility] [address] [place] [id number] Test Date: 2018-08-04 Test Time: 17:40:19 Pat Name: EPIFANIO MCARTHUR Department: Room: Gender: F Design Specialist: CHANDLER : 1975 Requested By: RASHID OBRIEN Order Number: [id number] Reading MD: Measurements Intervals [place] Rate: 76 P: 27 OK: 154 QRS: -11 QRSD: 98 T: 21 QT: 378 QTc: 430 Interpretive Statements SINUS RHYTHM LEFTWARD AXIS NO SPECIFIC ECG ABNORMALITIES RI6.01 No previous ECG available for comparison
[2018-08-04] MEDS: IV NORMAL SALINE 1000ML BAG 1,000 ML IV ONE (17:46)
[2018-08-04 17:47] LABS: CALCIUM 9.4 mg/dL (8.5-10.1); CREATININE 0.8 mg/dL (0.6-1.0); GFR 78.7; POTASSIUM 3.4 mmol/L (3.5-5.1)
[2018-08-04] MEDS: ONDANSETRON PF 4 MG/2 ML VIAL. IV ONE (17:47)
[2018-08-04] MEDS: fentaNYL PF VIAL 100 MCG/2 ML VIAL IV ONE (17:48)
[2018-08-04] MEDS: FAMOTIDINE 20 MG/2 ML VIAL IVP ONE (17:48)
[2018-08-04 17:53] LABS: ALBUMIN 3.4 g/dL (3.4-5.0); ALBUMIN/GLOBULIN RATIO 0.7 (1.0-1.7); TOTAL BILIRUBIN 0.2 mg/dL (0.2-1.0); TOTAL PROTEIN 8.4 g/dL (6.4-8.2)
[2018-08-04 18:00] LABS: BACTERIA,URINE FEW /HPF (0-FEW); RBC,URINE >40 /HPF (0-2); SQUAMOUS EPITHELIAL CELL,UR MANY /LPF
[2018-08-04] MEDS ORDERED: CONTRAST GIVEN. MC PRN (18:00)
[2018-08-04 18:02] LABS: % LYMPHS 18 % (24-48); % MONOS 4 % (0-10); % SEGS 78 % (35-66); PLT ESTIMATE ADEQUATE (ADEQUATE); POLYCHROMASIA SLIGHT
[2018-08-04 18:03] LABS: ANISOCYTOSIS MOD; HYPOCHROMIA MOD; MICROCYTOSIS MARKED; OVALOCYTES OCC; TARGET CELLS OCC
[2018-08-04] MEDS: IOHEXOL 300 MG/ML 100ML VIAL. IV ONE (18:07)
--- NOTE | 2018-08-04 18:23 | RAD ---
PQRS Compliance statement: One or more of the following individualized dose reduction techniques were utilized for this examination: 1. Automated exposure control. 2. Adjustment of the mA and/or kV according to patient size. 3. Use of iterative reconstruction technique. Indication:EPIGASTRIC ABD PAIN INJ 75ML OMNI 300 PREV SENT TECHNIQUE: CT abdomen and pelvis with IV contrast with multiplanar reformats. COMPARISON: 08/18/2017 FINDINGS: Heart is normal in size. No pericardial or pleural effusion. Clear lung bases. Thickening of the esophageal wall is seen in the GE junction likely from spasm or peristalsis. Liver is mildly enlarged measuring 21.5 cm. No focal hepatic lesion. Spleen, gallbladder, pancreas, right adrenal within normal limits. Enhancing left adrenal gland nodule is seen measuring 2.0 x 1.6 cm, previously 2.2 x 1.[address] from July 2017. This is new when compared to CT from 2014. No nephrolithiasis or hydronephrosis. No enlarged retroperitoneal or pelvic adenopathy. No free pelvic fluid or ascites. No bowel obstruction. Mildly enlarged daren hepatis lymph nodes are seen, nonspecific likely reactive. No pneumoperitoneum. Anteverted uterus with subserosal calcified fibroids in the right lateral uterine body and posterior uterine body. Urinary bladder is within normal limits. No suspicious bony lesion. IMPRESSION: 1. Mild hepatomegaly, nonspecific. 2. Stable left adrenal gland nodule when compared to previous exam from July 2017. This is new from 2014 CT. This is likely adrenal adenoma. Although for definite confirmation MRI of the abdomen with IV contrast is recommended. 3. Couple of subserosal uterine fibroids. Electronically signed by: Edson Guzman DO (08/04/2018 6:19 PM) [facility]
[2018-08-04 19:25] VITALS: BP 104/51
[2018-08-04] MEDS ORDERED: FAMO-63 PO (19:35)
--- NOTE | 2018-08-04 20:24 | RAD ---
PROCEDURE: CHEST PA LATERAL CLINICAL INDICATION: ER PATIENT. EPIGASTRIC PAIN X1 DAY. Hx DIABETES. PRIOR XRAY. COMPARISON: None FINDINGS: No pneumothorax identified. Cardiac and mediastinal contours unremarkable. No pulmonary consolidation or acute airspace disease. No acute osseous abnormalities identified. IMPRESSION: No pulmonary consolidation or acute airspace disease. Electronically signed by: Edson Guzman DO (08/04/2018 8:20 PM) [facility]
== END 2018-08-04 19:45 | disposition home or self-care (01) ==
LOC: ER 17:03
DX: R10.13 Epigastric pain (principal); R11.0 Nausea; E11.9 Type 2 diabetes mellitus without complications; E03.9 Hypothyroidism, unspecified; F17.200 Nicotine dependence, unspecified, uncomplicated; Z86.73 Personal history of transient ischemic attack (TIA), and cerebral infarction without residual deficits; Z88.6 Allergy status to analgesic agent; Z88.8 Allergy status to other drugs, medicaments and biological substances
CPT/HCPCS: 36415; 71046; 74177; 80053; 81001; 81025; 83690; 85007; 85025; 87086; 93005; 96374; 96375; 99284; J2405; J3010; J3490; J7030; Q9967

== ENCOUNTER 2019-04-24 17:44 | Inpatient (IN) | payer MEDICAID, OTHER ==
[~2019-04-24] VITALS: Ht 157.5 cm; Wt 75.3 kg
[~2019-04-24 17:44] MED LIST changes: +ALBU2.5V8 INH; +FAMO-63 PO; -PROAIR HFA8.5 GM INH; +RANI-376 PO; -RANI150T21 PO
[2019-04-24 19:19] LABS: BASO % 0 % (0-3); EOS # 0.1 x10^3/uL (0.0-0.7); EOS % 1 % (0-3); HEMATOCRIT 32.6 % (36.0-47.0); HEMOGLOBIN 9.8 g/dL (12.0-15.5); LYMPH # 1.5 x10^3/uL (1.0-4.8); LYMPH % 10 % (24-48); MEAN CORPUSCULAR HEMOGLOBIN 18 pg (25-35); MEAN CORPUSCULAR HGB CONC 30 g/dL (31-37); MEAN CORPUSCULAR VOLUME 59 fL (79-100); MONO # 0.9 x10^3/uL (0.0-1.1); MONO % 6 % (0-9); NEUT # 12.5 x10^3/uL (1.8-7.7); NEUT % 83 % (31-73); PLATELET COUNT 327 x10^3/uL (140-400); RED BLOOD COUNT 5.55 x10^6/uL (3.50-5.40); RED CELL DISTRIBUTION WIDTH 22.2 % (11.5-14.5); WHITE BLOOD COUNT 15.1 x10^3/uL (4.0-11.0)
--- NOTE | 2019-04-24 19:19 | PHYS DOC ---
Past Medical History Past Medical History: Diabetes-Type II, Hypothyroid, Stroke Additional Past Medical Histor: controlled DM,ovarian cyst (ELVIA HEBERT APRN) Past Surgical History: Additional Past Surgical Histo: skin ca removed from R FA, cerclage (ELVIA HEBERT APRN) Alcohol Use: None Drug Use: None (ELVIA HEBERT APRN) Adult General Chief Complaint Chief Complaint: CHEST WALL PAIN HPI HPI Patient is a 43 year old [female] who presents with [epigastric pain starting about 1300 today. Patient reports she had a sudden onset of this discomfort, states that it has been constant, she has tried some Advil and it denies abdomen make any improvement. States that she had eaten after this, thinking that may help and that made no difference either. States she has never had pain like this before. Denies any recent coughing, denies any recent fever, denies any recent illness, denies any recent trauma.] (ELVIA HEBERT APRN) Review of Systems Review of Systems Constitutional: Denies fever or chills [] HENT: Denies nasal congestion or sore throat [] Respiratory: Denies cough or shortness of breath does state when this pain comes, seems to make her breathing feels little bit worse[] Cardiovascular: No additional information not addressed in HPI [] GI: Reports abdominal pain, denies nausea, vomiting, bloody stools or diarrhea [] : Denies dysuria or hematuria [] Musculoskeletal: Denies back pain or joint pain [] Integument: Denies rash or skin lesions [] Neurologic: Denies headache, focal weakness or sensory changes [] Endocrine: Denies polyuria or polydipsia [] All other systems were reviewed and found to be within normal limits, except as documented in this note. (ELVIA HEBERT APRN) Current Medications Current Medications Current Medications Medications (Trade) Dose Ordered Sig/Trung Start Time Stop Time Status Last Admin Dose Admin Morphine Sulfate (Morphine Sulfate) 2 mg PRN Q1HR PRN 04/24/19 20:30 04/24/19 20:49 DC Ondansetron HCl (Zofran) 4 mg PRN 1X PRN 04/24/19 20:30 04/25/19 20:29 DC 04/24/19 20:49 4 MG Sodium Chloride 1,000 ml @ 150 mls/hr Q6H40M 04/24/19 20:42 04/25/19 20:41 DC 04/25/19 15:27 150 MLS/HR (AUSTIN JACKSON DO) Allergies Allergies Allergies Coded Allergies Type Severity Reaction Last Updated Verified aspirin Allergy Intermediate Rash 04/18/16 Yes dextromethorphan Allergy Intermediate rash 04/18/16 Yes doxylamine Allergy Intermediate rash 04/18/16 Yes pseudoephedrine Allergy Intermediate rash 04/18/16 Yes (AUSTIN JACKSON DO) Physical Exam Physical Exam Constitutional: Well developed, well nourished, no acute distress, non-toxic appearance. [] HENT: Normocephalic, atraumatic, bilateral external ears normal, oropharynx moist, no oral exudates, nose normal. [] Eyes: PERRLA, EOMI, conjunctiva normal, no discharge. [] Neck: Normal range of motion, no tenderness, supple, no stridor. [] Cardiovascular:Heart rate regular rhythm, no murmur [] Lungs & Thorax: Bilateral breath sounds clear to auscultation [] Abdomen: Bowel sounds normal, soft, epigastric tenderness, no masses, no pulsatile masses. [] Skin: Warm, dry, no erythema, no rash. [] Back: No tenderness, no CVA tenderness. [] Extremities: No tenderness, no cyanosis, no clubbing, ROM intact, no edema. [] Neurologic: Alert and oriented X 3, normal motor function, normal sensory function, no focal deficits noted. [] Psychologic: Affect normal, judgement normal, mood normal. [] (ELVIA HEBERT APRN) Current Patient Data Vital Signs Vital Signs Date Time Temp Pulse Resp B/P (MAP) Pulse Ox O2 Delivery O2 Flow Rate FiO2 04/24/19 20:14 65 16 156/74 (101) 99 Room Air 04/24/19 18:00 98.3 98.3 (AUSTIN JACKSON DO) Lab Values Laboratory Tests Test 04/24/19 18:30 04/24/19 20:15 White Blood Count 15.1 x10^3/uL (4.0-11.0) H Red Blood Count 5.55 x10^6/uL (3.50-5.40) H Hemoglobin 9.8 g/dL (12.0-15.5) L Hematocrit 32.6 % (36.0-47.0) L Mean Corpuscular Volume 59 fL (79-100) L Mean Corpuscular Hemoglobin 18 pg (25-35) L Mean Corpuscular Hemoglobin Concent 30 g/dL (31-37) L Red Cell Distribution Width 22.2 % (11.5-14.5) H Platelet Count 327 x10^3/uL (140-400) Neutrophils (%) (Auto) 83 % (31-73) H Lymphocytes (%) (Auto) 10 % (24-48) L Monocytes (%) (Auto) 6 % (0-9) Eosinophils (%) (Auto) 1 % (0-3) Basophils (%) (Auto) 0 % (0-3) Neutrophils # (Auto) 12.5 x10^3/uL (1.8-7.7) H Lymphocytes # (Auto) 1.5 x10^3/uL (1.0-4.8) Monocytes # (Auto) 0.9 x10^3/uL (0.0-1.1) Eosinophils # (Auto) 0.1 x10^3/uL (0.0-0.7) Basophils # (Auto) 0.0 x10^3/uL (0.0-0.2) Platelet Estimate Adequate (ADEQUATE) Giant Platelets Occ Polychromasia Slight Hypochromasia Marked Anisocytosis Mod Microcytosis Marked Target Cells Few Tear Drop Cells Occ D-Dimer (Diane) 0.55 ug/mlFEU (0.00-0.50) H Sodium Level 133 mmol/L (136-145) L Potassium Level 4.5 mmol/L (3.5-5.1) Chloride Level 97 mmol/L (98-107) L Carbon Dioxide Level 25 mmol/L (21-32) Anion Gap 11 (6-14) Blood Urea Nitrogen 14 mg/dL (7-20) Creatinine 0.8 mg/dL (0.6-1.0) Estimated GFR (Cockcroft-Gault) 78.7 BUN/Creatinine Ratio 18 (6-20) Glucose Level 377 mg/dL (70-99) H Calcium Level 9.1 mg/dL (8.5-10.1) Total Bilirubin 1.6 mg/dL (0.2-1.0) H Aspartate Amino Transferase (AST) 434 U/L (15-37) H Alanine Aminotransferase (ALT) 265 U/L (14-59) H Alkaline Phosphatase 216 U/L (46-116) H Troponin I Quantitative < 0.017 ng/mL (0.000-0.055) Total Protein 8.0 g/dL (6.4-8.2) Albumin 3.4 g/dL (3.4-5.0) Albumin/Globulin Ratio 0.7 (1.0-1.7) L Triglycerides Level 316 mg/dL (0-150) H Amylase Level 1574 U/L (25-115) H Lipase 41744 U/L (73-393) H Ethyl Alcohol Level < 10 mg/dL (0-10) Urine Collection Type Unknown Urine Color Yellow Urine Clarity Clear Urine pH 5.5 Urine Specific [place] 1.025 Urine Protein 100 mg/dL (NEG-TRACE) Urine Glucose (UA) >=1000 mg/dL (NEG) Urine Ketones (Stick) Negative mg/dL (NEG) Urine Blood Negative (NEG) Urine Nitrite Negative (NEG) Urine Bilirubin Small (NEG) Urine Urobilinogen Dipstick 0.2 mg/dL (0.2 mg/dL) Urine Leukocyte Esterase Moderate (NEG) Urine RBC Occ /HPF (0-2) Urine WBC Tntc /HPF (0-4) Urine Squamous Epithelial Cells Mod /LPF Urine Bacteria Moderate /HPF (0-FEW) Urine Mucus Slight /LPF Laboratory Tests 04/24/19 18:30 Laboratory Tests 04/24/19 18:30 (AUSTIN JACKSON DO) Lab Values Laboratory Tests Test 04/24/19 18:30 04/24/19 20:15 White Blood Count 15.1 x10^3/uL (4.0-11.0) H Red Blood Count 5.55 x10^6/uL (3.50-5.40) H Hemoglobin 9.8 g/dL (12.0-15.5) L Hematocrit 32.6 % (36.0-47.0) L Mean Corpuscular Volume 59 fL (79-100) L Mean Corpuscular Hemoglobin 18 pg (25-35) L Mean Corpuscular Hemoglobin Concent 30 g/dL (31-37) L Red Cell Distribution Width 22.2 % (11.5-14.5) H Platelet Count 327 x10^3/uL (140-400) Neutrophils (%) (Auto) 83 % (31-73) H Lymphocytes (%) (Auto) 10 % (24-48) L Monocytes (%) (Auto) 6 % (0-9) Eosinophils (%) (Auto) 1 % (0-3) Basophils (%) (Auto) 0 % (0-3) Neutrophils # (Auto) 12.5 x10^3/uL (1.8-7.7) H Lymphocytes # (Auto) 1.5 x10^3/uL (1.0-4.8) Monocytes # (Auto) 0.9 x10^3/uL (0.0-1.1) Eosinophils # (Auto) 0.1 x10^3/uL (0.0-0.7) Basophils # (Auto) 0.0 x10^3/uL (0.0-0.2) Platelet Estimate Adequate (ADEQUATE) Giant Platelets Occ Polychromasia Slight Hypochromasia Marked Anisocytosis Mod Microcytosis Marked Target Cells Few Tear Drop Cells Occ D-Dimer (Diane) 0.55 ug/mlFEU (0.00-0.50) H Sodium Level 133 mmol/L (136-145) L Potassium Level 4.5 mmol/L (3.5-5.1) Chloride Level 97 mmol/L (98-107) L Carbon Dioxide Level 25 mmol/L (21-32) Anion Gap 11 (6-14) Blood Urea Nitrogen 14 mg/dL (7-20) Creatinine 0.8 mg/dL (0.6-1.0) Estimated GFR (Cockcroft-Gault) 78.7 BUN/Creatinine Ratio 18 (6-20) Glucose Level 377 mg/dL (70-99) H Calcium Level 9.1 mg/dL (8.5-10.1) Total Bilirubin 1.6 mg/dL (0.2-1.0) H Aspartate Amino Transferase (AST) 434 U/L (15-37) H Alanine Aminotransferase (ALT) 265 U/L (14-59) H Alkaline Phosphatase 216 U/L (46-116) H Troponin I Quantitative < 0.017 ng/mL (0.000-0.055) Total Protein 8.0 g/dL (6.4-8.2) Albumin 3.4 g/dL (3.4-5.0) Albumin/Globulin Ratio 0.7 (1.0-1.7) L Triglycerides Level 316 mg/dL (0-150) H Amylase Level 1574 U/L (25-115) H Lipase 22711 U/L (73-393) H Ethyl Alcohol Level < 10 mg/dL (0-10) Urine Collection Type Unknown Urine Color Yellow Urine Clarity Clear Urine pH 5.5 Urine Specific [place] 1.025 Urine Protein 100 mg/dL (NEG-TRACE) Urine Glucose (UA) >=1000 mg/dL (NEG) Urine Ketones (Stick) Negative mg/dL (NEG) Urine Blood Negative (NEG) Urine Nitrite Negative (NEG) Urine Bilirubin Small (NEG) Urine Urobilinogen Dipstick 0.2 mg/dL (0.2 mg/dL) Urine Leukocyte Esterase Moderate (NEG) Urine RBC Occ /HPF (0-2) Urine WBC Tntc /HPF (0-4) Urine Squamous Epithelial Cells Mod /LPF Urine Bacteria Moderate /HPF (0-FEW) Urine Mucus Slight /LPF Laboratory Tests 04/24/19 18:30 Laboratory Tests 04/24/19 18:30 (ELVIA HEBERT APRN) EKG EKG Sinus Rhythm without ST changes, No STEMI noted[] (ELVIA HEBERT APRN) Radiology/Procedures Radiology/Procedures Mild opacity in the right base may be from superimposed sof tissues. correlate for mild right basilar pneumonia. Per radiologist[] (ELVIA HEBERT APRN) Course & Med Decision Making Course & Med Decision Making Pertinent Labs and Imaging studies reviewed. (See chart for details) [@2024 discussed findings with patient, in agreement with admission. @[address] Levy, agrees to Patient and admit the patient hospital. Will perform ultrasound results to determine any RUQ concerns. ] (ELVIA HEBERT APRN) Dragon Disclaimer Dragon Disclaimer This electronic medical record was generated, in whole or in part, using a voice recognition dictation system. (ELVIA HEBERT APRN) Departure Departure Impression: Primary Impression: Acute pancreatitis Additional Impression: Epigastric abdominal pain Disposition: ADMITTED INPATIENT Admitting Physician: APRIL (ELVIA HEBERT APRN) Condition: STABLE Referrals: UNKNOWN PCP NAME (PCP) Attending Signature Attending Signature I have reviewed the [facility]'s note and plan of care. I was available for consultation as needed during the patient's visit in the emergency department. I agree with the clinical impression, plan, and disposition. (AUSTIN JACKSON DO) Problem Qualifiers Primary Impression: Acute pancreatitis Pancreatitis type: unspecified pancreatitis type Acute pancreatitis complication: no infection or necrosis Qualified Codes: K85.90 - Acute pancreatitis without necrosis or infection, unspecified ELVIA HEBERT APRN Apr 24, 2019 19:19 AUSTIN JACKSON DO Apr 25, 2019 21:36
[2019-04-24 19:24] LABS: CALCIUM 9.1 mg/dL (8.5-10.1); CREATININE 0.8 mg/dL (0.6-1.0); GFR 78.7; POTASSIUM 4.5 mmol/L (3.5-5.1)
[2019-04-24 19:31] LABS: ALBUMIN 3.4 g/dL (3.4-5.0); ALBUMIN/GLOBULIN RATIO 0.7 (1.0-1.7); TOTAL BILIRUBIN 1.6 mg/dL (0.2-1.0)
[2019-04-24 19:34] LABS: PLT ESTIMATE ADEQUATE (ADEQUATE)
[2019-04-24 19:35] LABS: ANISOCYTOSIS MOD; HYPOCHROMIA MARKED; MICROCYTOSIS MARKED; POLYCHROMASIA SLIGHT; TARGET CELLS FEW
[2019-04-24 19:36] LABS: TEAR DROP CELLS OCC
[2019-04-24 20:19] LABS: AMYLASE 1574 U/L (25-115); LIPASE 44483 U/L (73-393)
[2019-04-24 20:23] LABS: BILIRUBIN,URINE SMALL (NEG); CLARITY,URINE CLEAR; COLOR,URINE YELLOW; NITRITE,URINE NEGATIVE (NEG); PH,URINE 5.5; PROTEIN,URINE 100 mg/dL (NEG-TRACE); UROBILINOGEN,URINE 0.2 mg/dL (0.2 mg/dL)
[2019-04-24 20:29] LABS: BACTERIA,URINE MODERATE /HPF (0-FEW); RBC,URINE OCC /HPF (0-2); WBC,URINE TNTC /HPF (0-4)
[2019-04-24 20:30] LABS: SQUAMOUS EPITHELIAL CELL,UR MOD /LPF
[2019-04-24] MEDS ORDERED: MORPHINE SULFATE 2 MG/ML VIAL. IV PRN (20:30)
[2019-04-24] MEDS ORDERED: IV NORMAL SALINE 1000ML BAG 1,000 ML IV ONE (20:30)
[2019-04-24] MEDS ORDERED: ONDANSETRON PF 4 MG/2 ML VIAL. IM PRN (20:30)
--- NOTE | 2019-04-24 20:37 | RAD ---
EXAM: CHEST 2 VIEWS. HISTORY: Chest pain. COMPARISON: 08/04/2018. FINDINGS: Frontal and lateral views of the chest are obtained. There is a mild airspace opacity in the right cardiophrenic angle. There is no clear correlate on the lateral projection. There is no pneumothorax or pleural effusion. The heart is not enlarged. The right fifth rib is hypoplastic. IMPRESSION: 1. Mild opacity in the right base may be from superimposed soft tissues. Correlate for mild right basilar pneumonia. Electronically signed by: Flori Ivory MD (04/24/2019 8:34 PM) [facility]
[2019-04-24] MEDS ORDERED: ONDANSETRON PF 4 MG/2 ML VIAL. IV PRN (20:45)
[2019-04-24] MEDS: MORPHINE SULFATE 2 MG/ML VIAL. IV PRN ×2 (21:05→23:31)
[2019-04-24 21:20] VITALS: BP 166/54
[2019-04-24] MEDS: IV NORMAL SALINE 1000ML BAG 1,000 ML IV SCH (23:30)
[2019-04-25] VITALS (7 sets, daily range): BP systolic 113–152; BP diastolic 61–100
[2019-04-25] MEDS ORDERED: INSU100V13 SQ (00:14)
[2019-04-25] MEDS: MORPHINE SULFATE 2 MG/ML VIAL. IV PRN ×2 (05:01→09:17)
[2019-04-25] MEDS: IV NORMAL SALINE 1000ML BAG 1,000 ML IV SCH ×3 (05:03→16:42)
--- NOTE | 2019-04-25 07:13 | EKG ---
[address] [place] [address] Test Date: 2019-04-24 Test Time: 18:02:51 Pat Name: EPIFANIO MCARTHUR Department: Room: 586 1 Gender: F Game [employer]: : [id number] Requested By: MADISYN GUTIÉRREZ Order Number: [id number] Reading MD: Jose Membreno MD Measurements Intervals [place] Rate: 66 P: 28 HI: 146 QRS: 2 QRSD: 102 T: 40 QT: 384 QTc: 404 Interpretive Statements SINUS RHYTHM Electronically Signed On 04-25-2019 18:13:53 CDT by Jose Membreno MD
--- NOTE | 2019-04-25 09:03 | RAD ---
Limited abdomen ultrasound study Clinical indications: Right upper quadrant pain. Elevated liver function tests. Pancreatitis. COMPARISON: CT study dated August 18, 2017 and abdomen ultrasound study dated August 18, 2017. FINDINGS: There is attenuation of sound throughout the liver which may be seen with fatty infiltration of the liver. There is a hypoechoic solid nodule within the anterior aspect of the left lobe liver which measures 16 mm x 11 mm x 10 mm in size. It has not increased in size from the previous studies. The liver measures 21.5 cm in length which is enlarged. The gallbladder is distended measuring 11.1 cm in length. No gallbladder wall thickening is seen. Biliary sludge is seen within the gallbladder. A positive Whiting's sign was elicited during transducer examination of the gallbladder. The extra hepatic bile duct measures 4.8 mm in caliber which is normal. The length of the right kidney is 12.1 cm. No hydronephrosis or renal mass or perinephric fluid collection is seen on the right side. The pancreas is not visualized due to overlying bowel gas. IMPRESSION: Gallbladder is distended. Positive Whiting's sign was elicited during transducer examination of the gallbladder. Mild biliary sludge is seen within the gallbladder. Hepatomegaly. Fatty infiltration of the liver. No change in size of hypoechoic nodule of the left lobe of the liver consistent with a benign finding. The pancreas is not visualized due to overlying bowel gas. Electronically signed by: Nico Cook MD (04/25/2019 9:01 AM) [id number]
[2019-04-25 10:10] LABS: ALBUMIN 2.8 g/dL (3.4-5.0); ALBUMIN/GLOBULIN RATIO 0.6 (1.0-1.7); CALCIUM 8.1 mg/dL (8.5-10.1); CREATININE 0.6 mg/dL (0.6-1.0); GFR 109.6; POTASSIUM 3.6 mmol/L (3.5-5.1); TOTAL BILIRUBIN 1.5 mg/dL (0.2-1.0); TOTAL PROTEIN 7.5 g/dL (6.4-8.2)
--- NOTE | 2019-04-25 12:44 | PDOC1 ---
History and Physical Date of Admission Date of Admission DATE: 04/25/19 TIME: 12:44 Identification/Chief Complaint Chief Complaint abd pain Source Source: Chart review, Patient History of Present Illness History of Present Illness Ms. Welch is a 43 year old [female] who presents with [epigastric pain starting about 1300 today. Patient reports she had a sudden onset of this discomfort, states that it has been constant, she has tried some Advil and it denies abdomen make any improvement. States that she had eaten after this, thinking that may help and that made no difference either. States she has never had pain like this before. Denies any recent coughing, denies any recent fever, denies any recent illness, denies any recent trauma.] Past Medical History Cardiovascular: No pertinent hx Pulmonary: No pertinent hx GI: No pertinent hx Hepatobiliary: No pertinent hx Psych: No pertinent hx Endocrine: Diabetes, Hypothyroidism Past Surgical History Past Surgical History: Family History Family History: Diabetes, Other Social History Smoke: No ALCOHOL: none Drugs: None Current Problem List Problem List Problems Medical Problems: (1) Epigastric abdominal pain Status: Acute Current Medications Current Medications Current Medications Morphine Sulfate (Morphine Sulfate) 2 mg PRN Q1HR PRN IV PAIN; Start 04/24/19 at 20:30; Stop 04/24/19 at 20:49; Status DC Ondansetron HCl (Zofran) 4 mg PRN 1X PRN IM nausea Last administered on 04/24/19at 20:49; Start 04/24/19 at 20:30; Stop 04/25/19 at 20:29 Sodium Chloride 1,000 ml @ 1,000 mls/hr 1X ONCE IV Last administered on 04/24/19at 20:49; Start 04/24/19 at 20:30; Stop 04/24/19 at 21:29; Status DC Ondansetron HCl (Zofran) 4 mg PRN Q8HRS PRN IV NAUSEA/VOMITING; Start 04/24/19 at 20:45; Stop 04/25/19 at 20:44 Morphine Sulfate (Morphine Sulfate) 2 mg PRN Q2HR PRN IV PAIN Last administered on 04/25/19at 09:19; Start 04/24/19 at 20:45; Stop 04/25/19 at 20:44 Sodium Chloride 1,000 ml @ 150 mls/hr Q6H40M IV Last administered on 04/25/19at 05:05; Start 04/24/19 at 20:42; Stop 04/25/19 at 20:41 Active Scripts Active Pepcid (Famotidine) 20 Mg Tablet 20 Mg PO BID Reported Levemir (Insulin Detemir) 100 Unit/1 Ml Vial 20 Unit SQ HS Tums (Calcium Carbonate) 200 Mg Tab.chew 200 Mg PO PRN PRN Proair Hfa Inhaler (Albuterol Sulfate) 8.5 Gm Hfa.aer.ad 1 Puff INH PRN Q6HRS PRN Multi-Vitamin Daily (Multivitamin) 1 Each Tablet 1 Each PO DAILY Glyburide 5 Mg Tablet 5 Mg PO DAILYAC Levothyroxine Sodium 175 Mcg Tablet 175 Mcg PO DAILYAC Allergies Allergies: Coded Allergies: aspirin (Verified Allergy, Intermediate, Rash, 04/18/16) dextromethorphan (Verified Allergy, Intermediate, rash, 04/18/16) doxylamine (Verified Allergy, Intermediate, rash, 04/18/16) pseudoephedrine (Verified Allergy, Intermediate, rash, 04/18/16) ROS General: YES: Chills, Fatigue PSYCHOLOGICAL ROS: No: Anxiety, Behavioral Disorder, Concentration difficultie, Decreased libido, Depression, Disorientation, Hallucinations, Hostility, Irritablity, Memory difficulties, Mood Swings, Obsessive thoughts, Other Eyes: No Blurry vision, No Decreased vision, No Double vision, No Dry eyes, No Excessive tearing, No Eye Pain, No Itchy Eyes, No Loss of vision, No Photophobia, No Scotomata, No Uses contacts, No Uses glasses, No Other HEENT: No: Heacaches, Visual Changes, Hearing change, Nasal congestion, Nasal discharge, Oral lesions, Sinus pain, Sore Throat, Epistaxis, Sneezing, Snoring, Tinnitus, Vertigo, Vocal changes, Other Respiratory: No: Cough, Hemoptysis, Orthopnea, Pleuritic Pain, Shortness of breath, SOB with excertion, Sputum Changes, Stridor, Tachypnea, Wheezing, Other Cardiovascular: No Chest Pain, No Palpitations, No Orthopnea, No Paroxysmal Noc. Dyspnea, No Edema, No Lt Headedness, No Other Gastrointestinal: Yes Nausea, Yes Abdominal Pain, Yes Other Genitourinary: No Dysuria, No Frequency, No Incontinence, No Hematuria, No Retention, No Discharge, No Urgency, No Pain, No Flank Pain, No Other, No , No , No , No , No , No , No Musculoskeletal: No Gait Disturbance, No Joint Pain, No Joint Stiffness, No Joint Swelling, No Muscle Pain, No Muscular Weakness, No Pain In:, No Swelling In:, No Other Neurological: No Behavorial Changes, No Bowel/Bladder ControlChng, No Confusion, No Dizziness, No Gait Disturbance, No Headaches, No Impaired Coord/balance, No Memory Loss, No Numbness/Tingling, No Seizures, No Speech Problems, No Tremors, No Visual Changes, No Weakness, No Other Skin: No Dry Skin, No Eczema, No Hair Changes, No Lumps, No Mole Changes, No Mottling, No Nail Changes, No Pruritus, No Rash, No Skin Lesion Changes, No Other, No Acne Physical Exam General: Alert, Oriented X3, Cooperative, mild distress, moderate distress HEENT: PERRLA, Mucous membr. moist/pink Lungs: Clear to auscultation, Normal air movement Heart: no murmurs Abdomen: Soft (tender, some guarding) Rectal Exam: not examined Extremities: No clubbing, No cyanosis, No edema Skin: No rashes, No breakdown, No significant lesion Neuro: Normal speech, Normal tone, Sensation intact Psych/Mental Status: Mental status NL, Mood NL Vitals Vitals Vital Signs Date Time Temp Pulse Resp B/P (MAP) Pulse Ox O2 Delivery O2 Flow Rate FiO2 04/25/19 11:00 99.2 77 18 138/70 (92) 96 Room Air 99.2 Labs Labs Laboratory Tests Test 04/24/19 18:30 04/24/19 20:15 04/24/19 22:45 04/25/19 00:36 White Blood Count 15.1 x10^3/uL (4.0-11.0) Red Blood Count 5.55 x10^6/uL (3.50-5.40) Hemoglobin 9.8 g/dL (12.0-15.5) Hematocrit 32.6 % (36.0-47.0) Mean Corpuscular Volume 59 fL (79-100) Mean Corpuscular Hemoglobin 18 pg (25-35) Mean Corpuscular Hemoglobin Concent 30 g/dL (31-37) Red Cell Distribution Width 22.2 % (11.5-14.5) Platelet Count 327 x10^3/uL (140-400) Neutrophils (%) (Auto) 83 % (31-73) Lymphocytes (%) (Auto) 10 % (24-48) Monocytes (%) (Auto) 6 % (0-9) Eosinophils (%) (Auto) 1 % (0-3) Basophils (%) (Auto) 0 % (0-3) Neutrophils # (Auto) 12.5 x10^3/uL (1.8-7.7) Lymphocytes # (Auto) 1.5 x10^3/uL (1.0-4.8) Monocytes # (Auto) 0.9 x10^3/uL (0.0-1.1) Eosinophils # (Auto) 0.1 x10^3/uL (0.0-0.7) Basophils # (Auto) 0.0 x10^3/uL (0.0-0.2) Platelet Estimate Adequate (ADEQUATE) Giant Platelets Occ Polychromasia Slight Hypochromasia Marked Anisocytosis Mod Microcytosis Marked Target Cells Few Tear Drop Cells Occ D-Dimer (Diane) 0.55 ug/mlFEU (0.00-0.50) Sodium Level 133 mmol/L (136-145) Potassium Level 4.5 mmol/L (3.5-5.1) Chloride Level 97 mmol/L (98-107) Carbon Dioxide Level 25 mmol/L (21-32) Anion Gap 11 (6-14) Blood Urea Nitrogen 14 mg/dL (7-20) Creatinine 0.8 mg/dL (0.6-1.0) Estimated GFR (Cockcroft-Gault) 78.7 BUN/Creatinine Ratio 18 (6-20) Glucose Level 377 mg/dL (70-99) Calcium Level 9.1 mg/dL (8.5-10.1) Total Bilirubin 1.6 mg/dL (0.2-1.0) Aspartate Amino Transf (AST/SGOT) 434 U/L (15-37) Alanine Aminotransferase (ALT/SGPT) 265 U/L (14-59) Alkaline Phosphatase 216 U/L (46-116) Troponin I Quantitative < 0.017 ng/mL (0.000-0.055) Total Protein 8.0 g/dL (6.4-8.2) Albumin 3.4 g/dL (3.4-5.0) Albumin/Globulin Ratio 0.7 (1.0-1.7) Triglycerides Level 316 mg/dL (0-150) Amylase Level 1574 U/L (25-115) Lipase 80409 U/L (73-393) Ethyl Alcohol Level < 10 mg/dL (0-10) Urine Collection Type Unknown Urine Color Yellow Urine Clarity Clear Urine pH 5.5 Urine Specific [place] 1.025 Urine Protein 100 mg/dL (NEG-TRACE) Urine Glucose (UA) >=1000 mg/dL (NEG) Urine Ketones (Stick) Negative mg/dL (NEG) Urine Blood Negative (NEG) Urine Nitrite Negative (NEG) Urine Bilirubin Small (NEG) Urine Urobilinogen Dipstick 0.2 mg/dL (0.2 mg/dL) Urine Leukocyte Esterase Moderate (NEG) Urine RBC Occ /HPF (0-2) Urine WBC Tntc /HPF (0-4) Urine Squamous Epithelial Cells Mod /LPF Urine Bacteria Moderate /HPF (0-FEW) Urine Mucus Slight /LPF Lactic Acid Level 0.9 mmol/L (0.4-2.0) Glucose (Fingerstick) 358 mg/dL (70-99) Test 04/25/19 07:23 04/25/19 08:53 04/25/19 11:07 Glucose (Fingerstick) 261 mg/dL (70-99) 219 mg/dL (70-99) Sodium Level 136 mmol/L (136-145) Potassium Level 3.6 mmol/L (3.5-5.1) Chloride Level 103 mmol/L (98-107) Carbon Dioxide Level 22 mmol/L (21-32) Anion Gap 11 (6-14) Blood Urea Nitrogen 8 mg/dL (7-20) Creatinine 0.6 mg/dL (0.6-1.0) Estimated GFR (Cockcroft-Gault) 109.6 BUN/Creatinine Ratio 13 (6-20) Glucose Level 233 mg/dL (70-99) Calcium Level 8.1 mg/dL (8.5-10.1) Total Bilirubin 1.5 mg/dL (0.2-1.0) Aspartate Amino Transf (AST/SGOT) 258 U/L (15-37) Alanine Aminotransferase (ALT/SGPT) 237 U/L (14-59) Alkaline Phosphatase 205 U/L (46-116) Total Protein 7.5 g/dL (6.4-8.2) Albumin 2.8 g/dL (3.4-5.0) Albumin/Globulin Ratio 0.6 (1.0-1.7) Laboratory Tests Test 04/24/19 18:30 04/24/19 20:15 04/24/19 22:45 04/25/19 00:36 White Blood Count 15.1 x10^3/uL (4.0-11.0) Red Blood Count 5.55 x10^6/uL (3.50-5.40) Hemoglobin 9.8 g/dL (12.0-15.5) Hematocrit 32.6 % (36.0-47.0) Mean Corpuscular Volume 59 fL (79-100) Mean Corpuscular Hemoglobin 18 pg (25-35) Mean Corpuscular Hemoglobin Concent 30 g/dL (31-37) Red Cell Distribution Width 22.2 % (11.5-14.5) Platelet Count 327 x10^3/uL (140-400) Neutrophils (%) (Auto) 83 % (31-73) Lymphocytes (%) (Auto) 10 % (24-48) Monocytes (%) (Auto) 6 % (0-9) Eosinophils (%) (Auto) 1 % (0-3) Basophils (%) (Auto) 0 % (0-3) Neutrophils # (Auto) 12.5 x10^3/uL (1.8-7.7) Lymphocytes # (Auto) 1.5 x10^3/uL (1.0-4.8) Monocytes # (Auto) 0.9 x10^3/uL (0.0-1.1) Eosinophils # (Auto) 0.1 x10^3/uL (0.0-0.7) Basophils # (Auto) 0.0 x10^3/uL (0.0-0.2) Platelet Estimate Adequate (ADEQUATE) Giant Platelets Occ Polychromasia Slight Hypochromasia Marked Anisocytosis Mod Microcytosis Marked Target Cells Few Tear Drop Cells Occ D-Dimer (Diane) 0.55 ug/mlFEU (0.00-0.50) Sodium Level 133 mmol/L (136-145) Potassium Level 4.5 mmol/L (3.5-5.1) Chloride Level 97 mmol/L (98-107) Carbon Dioxide Level 25 mmol/L (21-32) Anion Gap 11 (6-14) Blood Urea Nitrogen 14 mg/dL (7-20) Creatinine 0.8 mg/dL (0.6-1.0) Estimated GFR (Cockcroft-Gault) 78.7 BUN/Creatinine Ratio 18 (6-20) Glucose Level 377 mg/dL (70-99) Calcium Level 9.1 mg/dL (8.5-10.1) Total Bilirubin 1.6 mg/dL (0.2-1.0) Aspartate Amino Transf (AST/SGOT) 434 U/L (15-37) Alanine Aminotransferase (ALT/SGPT) 265 U/L (14-59) Alkaline Phosphatase 216 U/L (46-116) Troponin I Quantitative < 0.017 ng/mL (0.000-0.055) Total Protein 8.0 g/dL (6.4-8.2) Albumin 3.4 g/dL (3.4-5.0) Albumin/Globulin Ratio 0.7 (1.0-1.7) Triglycerides Level 316 mg/dL (0-150) Amylase Level 1574 U/L (25-115) Lipase 88327 U/L (73-393) Ethyl Alcohol Level < 10 mg/dL (0-10) Urine Collection Type Unknown Urine Color Yellow Urine Clarity Clear Urine pH 5.5 Urine Specific [place] 1.025 Urine Protein 100 mg/dL (NEG-TRACE) Urine Glucose (UA) >=1000 mg/dL (NEG) Urine Ketones (Stick) Negative mg/dL (NEG) Urine Blood Negative (NEG) Urine Nitrite Negative (NEG) Urine Bilirubin Small (NEG) Urine Urobilinogen Dipstick 0.2 mg/dL (0.2 mg/dL) Urine Leukocyte Esterase Moderate (NEG) Urine RBC Occ /HPF (0-2) Urine WBC Tntc /HPF (0-4) Urine Squamous Epithelial Cells Mod /LPF Urine Bacteria Moderate /HPF (0-FEW) Urine Mucus Slight /LPF Lactic Acid Level 0.9 mmol/L (0.4-2.0) Glucose (Fingerstick) 358 mg/dL (70-99) Test 04/25/19 07:23 04/25/19 08:53 04/25/19 11:07 Glucose (Fingerstick) 261 mg/dL (70-99) 219 mg/dL (70-99) Sodium Level 136 mmol/L (136-145) Potassium Level 3.6 mmol/L (3.5-5.1) Chloride Level 103 mmol/L (98-107) Carbon Dioxide Level 22 mmol/L (21-32) Anion Gap 11 (6-14) Blood Urea Nitrogen 8 mg/dL (7-20) Creatinine 0.6 mg/dL (0.6-1.0) Estimated GFR (Cockcroft-Gault) 109.6 BUN/Creatinine Ratio 13 (6-20) Glucose Level 233 mg/dL (70-99) Calcium Level 8.1 mg/dL (8.5-10.1) Total Bilirubin 1.5 mg/dL (0.2-1.0) Aspartate Amino Transf (AST/SGOT) 258 U/L (15-37) Alanine Aminotransferase (ALT/SGPT) 237 U/L (14-59) Alkaline Phosphatase 205 U/L (46-116) Total Protein 7.5 g/dL (6.4-8.2) Albumin 2.8 g/dL (3.4-5.0) Albumin/Globulin Ratio 0.6 (1.0-1.7) VTE Prophylaxis Ordered VTE Prophylaxis Devices: Yes VTE Pharmacological Prophylaxi: No Assessment/Plan Assessment/Plan acute abdominal pain pancreatitis transaminitis, with gallstones, consult GI and gen surg obese, BMI 30 DM2, lantus, admit DANIELE PATINO MD Apr 25, 2019 12:44
[2019-04-25] MEDS ORDERED: IV DEXTROSE 5% 250 ML BAG. IV PRN (13:00)
[2019-04-25] MEDS ORDERED: SALIVA STIMULANT AGENT 44ML SPRAY BOTTLE. PO PRN (13:00)
[2019-04-25] MEDS ORDERED: DEXTROSE 50% 25 GM / 50ML DISP.SYRIN. IV PRN (13:00)
--- NOTE | 2019-04-25 13:42 | PDOC2 ---
GI CONSULT Reason For Consult: Acute pancreatitis HPI: HPI: 43 y/o female admitted through ER yesterday where she was evaluated for a few hours of midchest and epigastric pain radiation to back "like a knife was stabbing me." Still struggling w/ pain (now "sore") and feels bloated. Labs yesterday include WBC 15.1, Hgb 9.8, MCV 57, RDW 22.2, normal plt, elevated D-dime 0.55, bili 1.6 (now 1.5), AST 434 (now 258), ALT 265 (now 237), Alk Phos 216 (now 205), lipase 36892, glucose 377, trigs 316, and possible UTI. RUQ US noted fatty liver and hepatomegaly, left hepatic nodule (stable size), distended gallbladder w/ sludge and positive Whiting's sign. H/o acid reflux improved w/ Tums. No dysphagia, n/v, chronic abd pain, diarrhea, constipation, hematochezia, melena, change in appetite, or weight loss. US in 07/2016 showed cholelithiasis and acute cholecystitis. She was 5 weeks at that time; surgery saw and recommended treatment w/ antibi otics/medical treatment w/ consideration for elective cholecystectomy in 2nd trimester. She denies previous pancreas, liver, or PUD history. Past imaging has noted left hepatic nodule - possible hemangioma on CT in 2014. No previous EGD or colonoscopy. Takes Advil PRN for migraines. Says blood sugar ranges from 120 to 160 at home. Has been told she's anemic in the past - says sometimes has heavy periods but sometimes "normal." PMH: PMH: DM, hypothyroidism, GERD, cholelithiasis/cholecystitis, left adrenal nodule hysterectomy w/ polypectomy and endometrial biopsy, ovarian cyst removal, C- section x 2 FH: Family History: Other (mother - GB disease) Social History: Smoke: No ALCOHOL: rare Drugs: None ROS: GEN: Denies fevers, chills, sweats HEENT: Denies blurred vision, sore throat CV: +chest pain RESP: Denies shortness of air, cough GI: Per HPI : Denies hematuria, dysuria ENDO: Denies weight changes NEURO: Denies confusion, dizziness MSK: Denies weakness, joint pain/swelling SKIN: Denies jaundice, pruritus Vitals: Vitals: Vital Signs Date Time Temp Pulse Resp B/P (MAP) Pulse Ox O2 Delivery O2 Flow Rate FiO2 04/25/19 11:00 99.2 77 18 138/70 (92) 96 Room Air 99.2 Labs: Labs: Laboratory Tests Test 04/24/19 18:30 04/24/19 20:15 04/24/19 22:45 04/25/19 00:36 White Blood Count 15.1 x10^3/uL (4.0-11.0) Red Blood Count 5.55 x10^6/uL (3.50-5.40) Hemoglobin 9.8 g/dL (12.0-15.5) Hematocrit 32.6 % (36.0-47.0) Mean Corpuscular Volume 59 fL (79-100) Mean Corpuscular Hemoglobin 18 pg (25-35) Mean Corpuscular Hemoglobin Concent 30 g/dL (31-37) Red Cell Distribution Width 22.2 % (11.5-14.5) Platelet Count 327 x10^3/uL (140-400) Neutrophils (%) (Auto) 83 % (31-73) Lymphocytes (%) (Auto) 10 % (24-48) Monocytes (%) (Auto) 6 % (0-9) Eosinophils (%) (Auto) 1 % (0-3) Basophils (%) (Auto) 0 % (0-3) Neutrophils # (Auto) 12.5 x10^3/uL (1.8-7.7) Lymphocytes # (Auto) 1.5 x10^3/uL (1.0-4.8) Monocytes # (Auto) 0.9 x10^3/uL (0.0-1.1) Eosinophils # (Auto) 0.1 x10^3/uL (0.0-0.7) Basophils # (Auto) 0.0 x10^3/uL (0.0-0.2) Platelet Estimate Adequate (ADEQUATE) Giant Platelets Occ Polychromasia Slight Hypochromasia Marked Anisocytosis Mod Microcytosis Marked Target Cells Few Tear Drop Cells Occ D-Dimer (Diane) 0.55 ug/mlFEU (0.00-0.50) Sodium Level 133 mmol/L (136-145) Potassium Level 4.5 mmol/L (3.5-5.1) Chloride Level 97 mmol/L (98-107) Carbon Dioxide Level 25 mmol/L (21-32) Anion Gap 11 (6-14) Blood Urea Nitrogen 14 mg/dL (7-20) Creatinine 0.8 mg/dL (0.6-1.0) Estimated GFR (Cockcroft-Gault) 78.7 BUN/Creatinine Ratio 18 (6-20) Glucose Level 377 mg/dL (70-99) Calcium Level 9.1 mg/dL (8.5-10.1) Total Bilirubin 1.6 mg/dL (0.2-1.0) Aspartate Amino Transf (AST/SGOT) 434 U/L (15-37) Alanine Aminotransferase (ALT/SGPT) 265 U/L (14-59) Alkaline Phosphatase 216 U/L (46-116) Troponin I Quantitative < 0.017 ng/mL (0.000-0.055) Total Protein 8.0 g/dL (6.4-8.2) Albumin 3.4 g/dL (3.4-5.0) Albumin/Globulin Ratio 0.7 (1.0-1.7) Triglycerides Level 316 mg/dL (0-150) Amylase Level 1574 U/L (25-115) Lipase 36609 U/L (73-393) Ethyl Alcohol Level < 10 mg/dL (0-10) Urine Collection Type Unknown Urine Color Yellow Urine Clarity Clear Urine pH 5.5 Urine Specific [place] 1.025 Urine Protein 100 mg/dL (NEG-TRACE) Urine Glucose (UA) >=1000 mg/dL (NEG) Urine Ketones (Stick) Negative mg/dL (NEG) Urine Blood Negative (NEG) Urine Nitrite Negative (NEG) Urine Bilirubin Small (NEG) Urine Urobilinogen Dipstick 0.2 mg/dL (0.2 mg/dL) Urine Leukocyte Esterase Moderate (NEG) Urine RBC Occ /HPF (0-2) Urine WBC Tntc /HPF (0-4) Urine Squamous Epithelial Cells Mod /LPF Urine Bacteria Moderate /HPF (0-FEW) Urine Mucus Slight /LPF Lactic Acid Level 0.9 mmol/L (0.4-2.0) Glucose (Fingerstick) 358 mg/dL (70-99) Test 04/25/19 07:23 04/25/19 08:53 04/25/19 11:07 Glucose (Fingerstick) 261 mg/dL (70-99) 219 mg/dL (70-99) Sodium Level 136 mmol/L (136-145) Potassium Level 3.6 mmol/L (3.5-5.1) Chloride Level 103 mmol/L (98-107) Carbon Dioxide Level 22 mmol/L (21-32) Anion Gap 11 (6-14) Blood Urea Nitrogen 8 mg/dL (7-20) Creatinine 0.6 mg/dL (0.6-1.0) Estimated GFR (Cockcroft-Gault) 109.6 BUN/Creatinine Ratio 13 (6-20) Glucose Level 233 mg/dL (70-99) Calcium Level 8.1 mg/dL (8.5-10.1) Total Bilirubin 1.5 mg/dL (0.2-1.0) Aspartate Amino Transf (AST/SGOT) 258 U/L (15-37) Alanine Aminotransferase (ALT/SGPT) 237 U/L (14-59) Alkaline Phosphatase 205 U/L (46-116) Total Protein 7.5 g/dL (6.4-8.2) Albumin 2.8 g/dL (3.4-5.0) Albumin/Globulin Ratio 0.6 (1.0-1.7) Allergies: Coded Allergies: aspirin (Verified Allergy, Intermediate, Rash, 04/18/16) dextromethorphan (Verified Allergy, Intermediate, rash, 04/18/16) doxylamine (Verified Allergy, Intermediate, rash, 04/18/16) pseudoephedrine (Verified Allergy, Intermediate, rash, 04/18/16) Medications: Current Medications Medications (Trade) Dose Ordered Sig/Trung Route PRN Reason Start Time Stop Time Status Last Admin Dose Admin Ondansetron HCl (Zofran) 4 mg PRN 1X PRN IM nausea 04/24/19 20:30 04/25/19 20:29 04/24/19 20:49 Sodium Chloride 1,000 ml @ 1,000 mls/hr 1X ONCE IV 04/24/19 20:30 04/24/19 21:29 DC 04/24/19 20:49 Morphine Sulfate (Morphine Sulfate) 2 mg PRN Q2HR PRN IV PAIN 04/24/19 20:45 04/25/19 12:59 DC 04/25/19 09:19 Sodium Chloride 1,000 ml @ 150 mls/hr Q6H40M IV 04/24/19 20:42 04/25/19 20:41 04/25/19 05:05 Imaging: Imaging: CXR 04/24/19 IMPRESSION: 1. Mild opacity in the right base may be from superimposed soft tissues. Correlate for mild right basilar pneumonia. RUQ US FINDINGS: There is attenuation of sound throughout the liver which may be seen with fatty infiltration of the liver. There is a hypoechoic solid nodule within the anterior aspect of the left lobe liver which measures 16mm x 11 mm x 10 mm in size. It has not increased in size from the previous studies. The liver measures 21.5 cm in length which is enlarged. The gallbladder is distended measuring 11.1 cm in length. No gallbladder wall thickening is seen. Biliary sludge is seen within the gallbladder. A positive Whiting's sign was elicited during transducer examination of the gallbladder. The extra hepatic bile duct measures 4.8 mm in caliber which is normal. The length of the right kidney is 12.1 cm. No hydronephrosis or renal mass or perinephric fluid collection is seen on the right side. The pancreas is not visualized due to overlying bowel gas. IMPRESSION: Gallbladder is distended. Positive Whiting's sign was elicited during transducer examination of the gallbladder. Mild biliary sludge is seen within the gallbladder. Hepatomegaly. Fatty infiltration of the liver. No change in size of hypoechoic nodule of the left lobe of the liver consistent with a benign finding. The pancreas is not visualized due to overlying bowel gas. PE: GEN: looks uncomfortable HEENT: Atraumatic, PERRL LUNGS: CTAB HEART: RRR ABD: round/?distended, epigastric tenderness - less so in BUQ, quiet EXTREMITY: trace edema BLE SKIN: No rashes, no jaundice NEURO/PSYCH: A & O �3 A/P: A/P: Pancreatitis, abnormal GB imaging - h/o cholelithiasis/cholecystitis in 2016 Leukocytosis, chronic microcytic anemia, ?UTI Elevated LFTs, hepatic steatosis, possible left hepatic hemangioma (stable in size) DM/hyperglycemia, hypertriglyceridemia GERD - takes Tums, no previous EGD CRC screen - average risk -- Labs to be rechecked tomorrow, surgery consult pending. Continue NPO, IVF. Pain control per primary. Add PPI w/ h/o reflux. ?MG MICHAEL Apr 25, 2019 13:42
[2019-04-25] MEDS: fentaNYL PF VIAL 100 MCG/2 ML VIAL IV PRN ×2 (15:26→21:17)
[2019-04-25] MEDS: PANTOPRAZOLE IV PUSH 40 MG VIAL. IVP SCH (16:50)
--- NOTE | 2019-04-25 16:51 | PDOC2 ---
CONSULT Date of Consult Date of Consult DATE: 04/25/19 TIME: 16:45 Reason for Consult Reason for Consult: acute pancreatitis, distended GB Referring Physician Referring Physician: JANNETH Identification/Chief Complaint Chief Complaint RUQ pain Source Source: Chart review, Patient History of Present Illness Reason for Visit: Rosa Isela in a 43 yo obese female diabetic with epigastric and RUQ pain. US showed a distended GB and her lipase was markedly elevated on admission. We are asked to see her for her gall bladder. Past Medical History Cardiovascular: No pertinent hx Pulmonary: No pertinent hx GI: No pertinent hx Hepatobiliary: No pertinent hx Psych: No pertinent hx Endocrine: Diabetes, Hypothyroidism Past Surgical History Past Surgical History: Family History Family History: Diabetes, Other Social History No ALCOHOL: rare Drugs: None Lives: with Family Current Problem List Problem List Problems Medical Problems: (1) Epigastric abdominal pain Status: Acute Current Medications Current Medications Current Medications Morphine Sulfate (Morphine Sulfate) 2 mg PRN Q1HR PRN IV PAIN; Start 04/24/19 at 20:30; Stop 04/24/19 at 20:49; Status DC Ondansetron HCl (Zofran) 4 mg PRN 1X PRN IM nausea Last administered on 04/24/19at 20:49; Start 04/24/19 at 20:30; Stop 04/25/19 at 20:29 Sodium Chloride 1,000 ml @ 1,000 mls/hr 1X ONCE IV Last administered on at 20:49; Start 04/24/19 at 20:30; Stop 04/24/19 at 21:29; Status DC Ondansetron HCl (Zofran) 4 mg PRN Q8HRS PRN IV NAUSEA/VOMITING; Start 04/24/19 at 20:45; Stop 04/25/19 at 20:44 Morphine Sulfate (Morphine Sulfate) 2 mg PRN Q2HR PRN IV PAIN Last administered on 04/25/19at 09:19; Start 04/24/19 at 20:45; Stop 04/25/19 at 12:59; Status DC Sodium Chloride 1,000 ml @ 150 mls/hr Q6H40M IV Last administered on 04/25/19at 15:27; Start 04/24/19 at 20:42; Stop 04/25/19 at 20:41 Insulin Human Lispro (HumaLOG) 0-7 UNITS TIDWMEALS SQ ; Start 04/25/19 at 17:00 Dextrose (Dextrose 50%-Water Syringe) 12.5 gm PRN Q15MIN PRN IV SEE COMMENTS; Start 04/25/19 at 13:00 Dextrose 250 ml PRN Q15MIN PRN IV SEE COMMENTS; Start 04/25/19 at 13:00 Insulin Glargine (Lantus Syringe) 12 unit QHS SQ ; Start 04/25/19 at 21:00 Fentanyl Citrate (Fentanyl 2ml Vial) 50 mcg PRN Q2HR PRN IV PAIN Last administered on 04/25/19at 15:27; Start 04/25/19 at 13:00 Saliva Substitute (Biotene Moisturizing Mouth) 2 spray PRN Q15MIN PRN PO DRY MOUTH; Start 04/25/19 at 13:00 Pantoprazole Sodium (PROTONIX VIAL for IV PUSH) 40 mg DAILYAC IVP ; Start 04/25/19 at 16:30 Active Scripts Active Pepcid (Famotidine) 20 Mg Tablet 20 Mg PO BID Reported Levemir (Insulin Detemir) 100 Unit/1 Ml Vial 20 Unit SQ HS Tums (Calcium Carbonate) 200 Mg Tab.chew 200 Mg PO PRN PRN Proair Hfa Inhaler (Albuterol Sulfate) 8.5 Gm Hfa.aer.ad 1 Puff INH PRN Q6HRS PRN Multi-Vitamin Daily (Multivitamin) 1 Each Tablet 1 Each PO DAILY Glyburide 5 Mg Tablet 5 Mg PO DAILYAC Levothyroxine Sodium 175 Mcg Tablet 175 Mcg PO DAILYAC Allergies Allergies: Coded Allergies: aspirin (Verified Allergy, Intermediate, Rash, 04/18/16) dextromethorphan (Verified Allergy, Intermediate, rash, 04/18/16) doxylamine (Verified Allergy, Intermediate, rash, 04/18/16) pseudoephedrine (Verified Allergy, Intermediate, rash, 04/18/16) ROS Gastrointestinal: Yes Nausea, Yes Abdominal Pain Physical Exam General: Alert, No acute distress, Other (drinking oral contrast for CT) HEENT: Atraumatic Lungs: Normal air movement Heart: Regular rate Abdomen: Other (obese, soft, TTP in the epigastrium, RUQ) Skin: Other (warm, dry) Vitals VITALS Vital Signs Date Time Temp Pulse Resp B/P (MAP) Pulse Ox O2 Delivery O2 Flow Rate FiO2 04/25/19 16:03 Room Air 04/25/19 15:27 96 04/25/19 15:00 99.2 91 18 142/100 (114) 99.2 Labs Labs Laboratory Tests Test 04/24/19 18:30 04/24/19 20:15 04/24/19 22:45 04/25/19 00:36 White Blood Count 15.1 x10^3/uL (4.0-11.0) Red Blood Count 5.55 x10^6/uL (3.50-5.40) Hemoglobin 9.8 g/dL (12.0-15.5) Hematocrit 32.6 % (36.0-47.0) Mean Corpuscular Volume 59 fL (79-100) Mean Corpuscular Hemoglobin 18 pg (25-35) Mean Corpuscular Hemoglobin Concent 30 g/dL (31-37) Red Cell Distribution Width 22.2 % (11.5-14.5) Platelet Count 327 x10^3/uL (140-400) Neutrophils (%) (Auto) 83 % (31-73) Lymphocytes (%) (Auto) 10 % (24-48) Monocytes (%) (Auto) 6 % (0-9) Eosinophils (%) (Auto) 1 % (0-3) Basophils (%) (Auto) 0 % (0-3) Neutrophils # (Auto) 12.5 x10^3/uL (1.8-7.7) Lymphocytes # (Auto) 1.5 x10^3/uL (1.0-4.8) Monocytes # (Auto) 0.9 x10^3/uL (0.0-1.1) Eosinophils # (Auto) 0.1 x10^3/uL (0.0-0.7) Basophils # (Auto) 0.0 x10^3/uL (0.0-0.2) Platelet Estimate Adequate (ADEQUATE) Giant Platelets Occ Polychromasia Slight Hypochromasia Marked Anisocytosis Mod Microcytosis Marked Target Cells Few Tear Drop Cells Occ D-Dimer (Diane) 0.55 ug/mlFEU (0.00-0.50) Sodium Level 133 mmol/L (136-145) Potassium Level 4.5 mmol/L (3.5-5.1) Chloride Level 97 mmol/L (98-107) Carbon Dioxide Level 25 mmol/L (21-32) Anion Gap 11 (6-14) Blood Urea Nitrogen 14 mg/dL (7-20) Creatinine 0.8 mg/dL (0.6-1.0) Estimated GFR (Cockcroft-Gault) 78.7 BUN/Creatinine Ratio 18 (6-20) Glucose Level 377 mg/dL (70-99) Calcium Level 9.1 mg/dL (8.5-10.1) Total Bilirubin 1.6 mg/dL (0.2-1.0) Aspartate Amino Transf (AST/SGOT) 434 U/L (15-37) Alanine Aminotransferase (ALT/SGPT) 265 U/L (14-59) Alkaline Phosphatase 216 U/L (46-116) Troponin I Quantitative < 0.017 ng/mL (0.000-0.055) Total Protein 8.0 g/dL (6.4-8.2) Albumin 3.4 g/dL (3.4-5.0) Albumin/Globulin Ratio 0.7 (1.0-1.7) Triglycerides Level 316 mg/dL (0-150) Amylase Level 1574 U/L (25-115) Lipase 36607 U/L (73-393) Ethyl Alcohol Level < 10 mg/dL (0-10) Urine Collection Type Unknown Urine Color Yellow Urine Clarity Clear Urine pH 5.5 Urine Specific Gillett 1.025 Urine Protein 100 mg/dL (NEG-TRACE) Urine Glucose (UA) >=1000 mg/dL (NEG) Urine Ketones (Stick) Negative mg/dL (NEG) Urine Blood Negative (NEG) Urine Nitrite Negative (NEG) Urine Bilirubin Small (NEG) Urine Urobilinogen Dipstick 0.2 mg/dL (0.2 mg/dL) Urine Leukocyte Esterase Moderate (NEG) Urine RBC Occ /HPF (0-2) Urine WBC Tntc /HPF (0-4) Urine Squamous Epithelial Cells Mod /LPF Urine Bacteria Moderate /HPF (0-FEW) Urine Mucus Slight /LPF Lactic Acid Level 0.9 mmol/L (0.4-2.0) Glucose (Fingerstick) 358 mg/dL (70-99) Test 04/25/19 07:23 04/25/19 08:53 04/25/19 11:07 Glucose (Fingerstick) 261 mg/dL (70-99) 219 mg/dL (70-99) Sodium Level 136 mmol/L (136-145) Potassium Level 3.6 mmol/L (3.5-5.1) Chloride Level 103 mmol/L (98-107) Carbon Dioxide Level 22 mmol/L (21-32) Anion Gap 11 (6-14) Blood Urea Nitrogen 8 mg/dL (7-20) Creatinine 0.6 mg/dL (0.6-1.0) Estimated GFR (Cockcroft-Gault) 109.6 BUN/Creatinine Ratio 13 (6-20) Glucose Level 233 mg/dL (70-99) Calcium Level 8.1 mg/dL (8.5-10.1) Iron Level 34 ug/dL (50-170) Total Iron Binding Capacity 389 ug/dL (250-450) Iron Saturation 9 % (15-34) Total Bilirubin 1.5 mg/dL (0.2-1.0) Aspartate Amino Transf (AST/SGOT) 258 U/L (15-37) Alanine Aminotransferase (ALT/SGPT) 237 U/L (14-59) Alkaline Phosphatase 205 U/L (46-116) Total Protein 7.5 g/dL (6.4-8.2) Albumin 2.8 g/dL (3.4-5.0) Albumin/Globulin Ratio 0.6 (1.0-1.7) Laboratory Tests Test 04/24/19 18:30 04/24/19 20:15 04/24/19 22:45 04/25/19 00:36 White Blood Count 15.1 x10^3/uL (4.0-11.0) Red Blood Count 5.55 x10^6/uL (3.50-5.40) Hemoglobin 9.8 g/dL (12.0-15.5) Hematocrit 32.6 % (36.0-47.0) Mean Corpuscular Volume 59 fL (79-100) Mean Corpuscular Hemoglobin 18 pg (25-35) Mean Corpuscular Hemoglobin Concent 30 g/dL (31-37) Red Cell Distribution Width 22.2 % (11.5-14.5) Platelet Count 327 x10^3/uL (140-400) Neutrophils (%) (Auto) 83 % (31-73) Lymphocytes (%) (Auto) 10 % (24-48) Monocytes (%) (Auto) 6 % (0-9) Eosinophils (%) (Auto) 1 % (0-3) Basophils (%) (Auto) 0 % (0-3) Neutrophils # (Auto) 12.5 x10^3/uL (1.8-7.7) Lymphocytes # (Auto) 1.5 x10^3/uL (1.0-4.8) Monocytes # (Auto) 0.9 x10^3/uL (0.0-1.1) Eosinophils # (Auto) 0.1 x10^3/uL (0.0-0.7) Basophils # (Auto) 0.0 x10^3/uL (0.0-0.2) Platelet Estimate Adequate (ADEQUATE) Giant Platelets Occ Polychromasia Slight Hypochromasia Marked Anisocytosis Mod Microcytosis Marked Target Cells Few Tear Drop Cells Occ D-Dimer (Diane) 0.55 ug/mlFEU (0.00-0.50) Sodium Level 133 mmol/L (136-145) Potassium Level 4.5 mmol/L (3.5-5.1) Chloride Level 97 mmol/L (98-107) Carbon Dioxide Level 25 mmol/L (21-32) Anion Gap 11 (6-14) Blood Urea Nitrogen 14 mg/dL (7-20) Creatinine 0.8 mg/dL (0.6-1.0) Estimated GFR (Cockcroft-Gault) 78.7 BUN/Creatinine Ratio 18 (6-20) Glucose Level 377 mg/dL (70-99) Calcium Level 9.1 mg/dL (8.5-10.1) Total Bilirubin 1.6 mg/dL (0.2-1.0) Aspartate Amino Transf (AST/SGOT) 434 U/L (15-37) Alanine Aminotransferase (ALT/SGPT) 265 U/L (14-59) Alkaline Phosphatase 216 U/L (46-116) Troponin I Quantitative < 0.017 ng/mL (0.000-0.055) Total Protein 8.0 g/dL (6.4-8.2) Albumin 3.4 g/dL (3.4-5.0) Albumin/Globulin Ratio 0.7 (1.0-1.7) Triglycerides Level 316 mg/dL (0-150) Amylase Level 1574 U/L (25-115) Lipase 70011 U/L (73-393) Ethyl Alcohol Level < 10 mg/dL (0-10) Urine Collection Type Unknown Urine Color Yellow Urine Clarity Clear Urine pH 5.5 Urine Specific Gillett 1.025 Urine Protein 100 mg/dL (NEG-TRACE) Urine Glucose (UA) >=1000 mg/dL (NEG) Urine Ketones (Stick) Negative mg/dL (NEG) Urine Blood Negative (NEG) Urine Nitrite Negative (NEG) Urine Bilirubin Small (NEG) Urine Urobilinogen Dipstick 0.2 mg/dL (0.2 mg/dL) Urine Leukocyte Esterase Moderate (NEG) Urine RBC Occ /HPF (0-2) Urine WBC Tntc /HPF (0-4) Urine Squamous Epithelial Cells Mod /LPF Urine Bacteria Moderate /HPF (0-FEW) Urine Mucus Slight /LPF Lactic Acid Level 0.9 mmol/L (0.4-2.0) Glucose (Fingerstick) 358 mg/dL (70-99) Test 04/25/19 07:23 04/25/19 08:53 04/25/19 11:07 Glucose (Fingerstick) 261 mg/dL (70-99) 219 mg/dL (70-99) Sodium Level 136 mmol/L (136-145) Potassium Level 3.6 mmol/L (3.5-5.1) Chloride Level 103 mmol/L (98-107) Carbon Dioxide Level 22 mmol/L (21-32) Anion Gap 11 (6-14) Blood Urea Nitrogen 8 mg/dL (7-20) Creatinine 0.6 mg/dL (0.6-1.0) Estimated GFR (Cockcroft-Gault) 109.6 BUN/Creatinine Ratio 13 (6-20) Glucose Level 233 mg/dL (70-99) Calcium Level 8.1 mg/dL (8.5-10.1) Iron Level 34 ug/dL (50-170) Total Iron Binding Capacity 389 ug/dL (250-450) Iron Saturation 9 % (15-34) Total Bilirubin 1.5 mg/dL (0.2-1.0) Aspartate Amino Transf (AST/SGOT) 258 U/L (15-37) Alanine Aminotransferase (ALT/SGPT) 237 U/L (14-59) Alkaline Phosphatase 205 U/L (46-116) Total Protein 7.5 g/dL (6.4-8.2) Albumin 2.8 g/dL (3.4-5.0) Albumin/Globulin Ratio 0.6 (1.0-1.7) Images Images US done on admission is reviewed, CT is PND Assessment/Plan Assessment/Plan acute pancreatitis distended gall bladder diabetes obesity continue supportive care to hopefully defervesce acute events and at some point may need cholecystectomy will follow with you Thanks for consult ISAAC ALLISON MD Apr 25, 2019 16:51
[2019-04-25] MEDS: INSULIN LISPRO 300 UNITS/3 ML VIAL. SQ SCH (17:00)
[2019-04-25] MEDS ORDERED: CONTRAST GIVEN. MC PRN (17:15)
[2019-04-25] MEDS ORDERED: IOHEXOL 240 MG/ML 50ML VIAL. PO ONE (17:30)
[2019-04-25] MEDS ORDERED: IOHEXOL 300 MG/ML 100ML VIAL. IV ONE (17:30)
--- NOTE | 2019-04-25 17:48 | RAD ---
CT ABD PELV W/ORAL IV CONTRAST Indication: Pancreatitis. Exposure: One or more of the following individualized dose reduction techniques were utilized for this examination: 1. Automated exposure control 2. Adjustment of the mA and/or kV according to patient size 3. Use of iterative reconstruction technique. Technique: Intravenous contrast was given. No oral contrast per request. Comparison: 08/04/2018. FINDINGS: There is some asymmetric density within the partially visualized left breast on the uppermost slice, image 1-2. This was not included on the prior study. Correlate clinically. Mild atelectasis or infiltrate in both lung bases. Liver remains mildly enlarged. Density within the anterior left lobe of the liver measuring 14 mm diameter, likely hypervascular. This may represent a flash filling hemangioma, and appears similar to the prior study. One or 2 hypodense lesions within the liver just anterior to the gallbladder, not clearly seen previously. Larger of these measures 15 mm. Series 2, image 27. Spleen not enlarged. Pancreas is enlarged and swollen, greatest at the body and neck. There is stranding within the peripancreatic fat and extending into the adjacent mesenteric fat. No evidence of peripancreatic abscess or pseudocyst. Adjacent fascial thickening is seen. Left adrenal nodule again identified, measuring about 2 cm, unchanged from similar prior slice. No right adrenal mass. Calcific density now identified along the posterior wall the gallbladder. Aorta is nonaneurysmal. No significant lymph node enlargement. No evidence of significant ascites or pneumoperitoneum. No significant urinary bladder wall thickening. Uterine heterogeneity and calcifications likely due to fibroids. Vertebral body height and alignment are intact with degenerative spondylosis. IMPRESSION: 1. Pancreatic swelling with adjacent fatty stranding, most compatible with the clinical diagnosis of pancreatitis. No organized fluid collection is identified. 2. Small enhancing lesion at the subcapsular left lobe of liver is again identified, may represent a flash filling hemangioma. This appears slightly denser than on the prior study but that could be due to difference in bolus timing. There are 2 additional subtle hypodense lesions within the liver anterior to the gallbladder were not seen previously. These could also represent hemangiomas, more apparent due to difference in intravenous contrast bolus timing, but depending on risk factors, more accurate characterization could be obtained with MRI of the liver. 3. Mild density is now identified along the posterior gallbladder, may represent some small gallstones or less likely gallbladder wall calcification. Gallbladder ultrasound could further evaluate. 4. Adrenal nodule is overall stable. 5. Asymmetric density in the left partially visualized breast, up to 4 cm diameter. Recommend clinical/mammographic correlation. Electronically signed by: Eladio Glasgow MD (04/25/2019 5:45 PM) [id number]
[2019-04-25] MEDS ORDERED: INSULIN GLARGINE SYRINGE. SQ SCH (21:00)
[2019-04-26] MEDS: fentaNYL PF VIAL 100 MCG/2 ML VIAL IV PRN (02:20)
[2019-04-26 02:44] VITALS: BP 120/68
[2019-04-26 07:00] VITALS: BP 126/60
[2019-04-26] MEDS: INSULIN LISPRO 300 UNITS/3 ML VIAL. SQ SCH ×2 (08:00→12:00)
--- NOTE | 2019-04-26 08:10 | NUR ---
Late note: RORO consulted for dc planning. Chart reviewed and discussed with RN. Pt is self-pay and reports she had recently lost her insurance benefits. Pt is provided with community resources, Rx assistance card health care resource guide. Will continue to follow pending needs.
[2019-04-26] MEDS: PANTOPRAZOLE IV PUSH 40 MG VIAL. IVP SCH (08:16)
[2019-04-26 08:40] LABS: BASO % 0 % (0-3); EOS # 0.1 x10^3/uL (0.0-0.7); EOS % 1 % (0-3); HEMATOCRIT 31.2 % (36.0-47.0); HEMOGLOBIN 9.3 g/dL (12.0-15.5); LYMPH # 2.6 x10^3/uL (1.0-4.8); LYMPH % 13 % (24-48); MEAN CORPUSCULAR HEMOGLOBIN 17 pg (25-35); MEAN CORPUSCULAR HGB CONC 30 g/dL (31-37); MEAN CORPUSCULAR VOLUME 59 fL (79-100); MONO # 1.1 x10^3/uL (0.0-1.1); MONO % 6 % (0-9); NEUT # 16.6 x10^3/uL (1.8-7.7); NEUT % 81 % (31-73); PLATELET COUNT 285 x10^3/uL (140-400); RED BLOOD COUNT 5.32 x10^6/uL (3.50-5.40); RED CELL DISTRIBUTION WIDTH 22.5 % (11.5-14.5); WHITE BLOOD COUNT 20.5 x10^3/uL (4.0-11.0)
[2019-04-26 08:58] LABS: ALBUMIN 2.7 g/dL (3.4-5.0); ALBUMIN/GLOBULIN RATIO 0.6 (1.0-1.7); CALCIUM 7.7 mg/dL (8.5-10.1); CREATININE 0.6 mg/dL (0.6-1.0); GFR 109.6; TOTAL BILIRUBIN 0.8 mg/dL (0.2-1.0); TOTAL PROTEIN 7.5 g/dL (6.4-8.2)
[2019-04-26 09:15] LABS: POTASSIUM 2.9 mmol/L (3.5-5.1)
[2019-04-26] MEDS ORDERED: IRON SUCROSE COMPLEX 200 MG in IV NORMAL SALINE 100ML 100 ML IV ONE (10:00)
[2019-04-26] MEDS ORDERED: POTASSIUM CHLORIDE 10MEQ 100 ML IV SCH (10:00)
--- NOTE | 2019-04-26 10:52 | PDOC ---
Subjective: Subjective: Feels better today. Really wants to go home - her neighbor is watching her 2 y/o and 3 y/o children - she needs to get home to them. Tells me she has [employer]. Objective: Vital Signs: Vital Signs Date Time Temp Pulse Resp B/P (MAP) Pulse Ox O2 Delivery O2 Flow Rate FiO2 04/26/19 07:00 97.8 86 18 126/60 (82) 98 Room Air 97.8 Labs: Laboratory Tests Test 04/25/19 11:07 04/25/19 16:55 04/25/19 21:10 04/26/19 07:18 Glucose (Fingerstick) 219 mg/dL 214 mg/dL 184 mg/dL White Blood Count 20.5 x10^3/uL Red Blood Count 5.32 x10^6/uL Hemoglobin 9.3 g/dL Hematocrit 31.2 % Mean Corpuscular Volume 59 fL Mean Corpuscular Hemoglobin 17 pg Mean Corpuscular Hemoglobin Concent 30 g/dL Red Cell Distribution Width 22.5 % Platelet Count 285 x10^3/uL Neutrophils (%) (Auto) 81 % Lymphocytes (%) (Auto) 13 % Monocytes (%) (Auto) 6 % Eosinophils (%) (Auto) 1 % Basophils (%) (Auto) 0 % Neutrophils # (Auto) 16.6 x10^3/uL Lymphocytes # (Auto) 2.6 x10^3/uL Monocytes # (Auto) 1.1 x10^3/uL Eosinophils # (Auto) 0.1 x10^3/uL Basophils # (Auto) 0.0 x10^3/uL Sodium Level 136 mmol/L Potassium Level 2.9 mmol/L Chloride Level 102 mmol/L Carbon Dioxide Level 22 mmol/L Anion Gap 12 Blood Urea Nitrogen 7 mg/dL Creatinine 0.6 mg/dL Estimated GFR (Cockcroft-Gault) 109.6 BUN/Creatinine Ratio 12 Glucose Level 151 mg/dL Calcium Level 7.7 mg/dL Total Bilirubin 0.8 mg/dL Aspartate Amino Transf (AST/SGOT) 93 U/L Alanine Aminotransferase (ALT/SGPT) 142 U/L Alkaline Phosphatase 188 U/L Total Protein 7.5 g/dL Albumin 2.7 g/dL Albumin/Globulin Ratio 0.6 Lipase 1149 U/L Test 8/27/19 07:42 Glucose (Fingerstick) 162 mg/dL Imaging: CT A/P IMPRESSION: 1. Pancreatic swelling with adjacent fatty stranding, most compatible with the clinical diagnosis of pancreatitis. No organized fluid collection is identified. 2. Small enhancing lesion at the subcapsular left lobe of liver is again identified, may represent a flash filling hemangioma. This appears slightly denser than on the prior study but that could be due to difference in bolus timing. There are 2 additional subtle hypodense lesions within the liver anterior to the gallbladder were not seen previously. These could also represent hemangiomas, more apparent due to difference in intravenous contrast bolus timing, but depending on risk factors, more accurate characterization could be obtained with MRI of the liver. 3. Mild density is now identified along the posterior gallbladder, may represent some small gallstones or less likely gallbladder wall calcification. Gallbladder ultrasound could further evaluate. 4. Adrenal nodule is overall stable. 5. Asymmetric density in the left partially visualized breast, up to 4 cm diameter. Recommend clinical/mammographic correlation. PE: GEN: NAD LUNGS: CTAB HEART: RRR ABD: less tender today, less distended, soft NEURO/PSYCH: A & O �3, tearful A/P: Pancreatitis, abnormal GB imaging - h/o cholelithiasis/cholecystitis in 2016 Leukocytosis (worse - WBC from 15 to 20), hypokalemia, ?UTI - per primary BIN (w/ h/o uterine fibroids) Elevated LFTs (better) - hepatic steatosis, possible left hepatic hemangioma -- Difficult situation w/ social issues - will review w/ Dr. Vuong. Continue PPI. Note to receive IV iron and clear liquids. MG LOERA Apr 26, 2019 10:51
[2019-04-26 10:56] VITALS: BP 130/62
--- NOTE | 2019-04-26 11:35 | PDOC ---
KRYSTAL LINTON GLAZE GRINDER 04/26/19 1135: SURGICAL PROGRESS NOTE Subjective still some epigastric pain, however improved no emesis Vital Signs Vital Signs Date Time Temp Pulse Resp B/P (MAP) Pulse Ox O2 Delivery O2 Flow Rate FiO2 04/26/19 10:56 97.8 84 18 130/62 (84) 98 Room Air 97.8 I&O Intake and Output 04/26/19 06:59 Intake Total 0 ml Balance 0 ml Intake Oral 0 ml # Voids 6 General: Alert, Oriented X3, Cooperative, No acute distress Abdomen: Soft, Other (mild ttp epigastric) Labs Laboratory Tests Test 04/24/19 18:30 04/24/19 20:15 04/24/19 22:45 04/25/19 00:36 White Blood Count 15.1 x10^3/uL (4.0-11.0) Red Blood Count 5.55 x10^6/uL (3.50-5.40) Hemoglobin 9.8 g/dL (12.0-15.5) Hematocrit 32.6 % (36.0-47.0) Mean Corpuscular Volume 59 fL (79-100) Mean Corpuscular Hemoglobin 18 pg (25-35) Mean Corpuscular Hemoglobin Concent 30 g/dL (31-37) Red Cell Distribution Width 22.2 % (11.5-14.5) Platelet Count 327 x10^3/uL (140-400) Neutrophils (%) (Auto) 83 % (31-73) Lymphocytes (%) (Auto) 10 % (24-48) Monocytes (%) (Auto) 6 % (0-9) Eosinophils (%) (Auto) 1 % (0-3) Basophils (%) (Auto) 0 % (0-3) Neutrophils # (Auto) 12.5 x10^3/uL (1.8-7.7) Lymphocytes # (Auto) 1.5 x10^3/uL (1.0-4.8) Monocytes # (Auto) 0.9 x10^3/uL (0.0-1.1) Eosinophils # (Auto) 0.1 x10^3/uL (0.0-0.7) Basophils # (Auto) 0.0 x10^3/uL (0.0-0.2) Platelet Estimate Adequate (ADEQUATE) Giant Platelets Occ Polychromasia Slight Hypochromasia Marked Anisocytosis Mod Microcytosis Marked Target Cells Few Tear Drop Cells Occ D-Dimer (Diane) 0.55 ug/mlFEU (0.00-0.50) Sodium Level 133 mmol/L (136-145) Potassium Level 4.5 mmol/L (3.5-5.1) Chloride Level 97 mmol/L (98-107) Carbon Dioxide Level 25 mmol/L (21-32) Anion Gap 11 (6-14) Blood Urea Nitrogen 14 mg/dL (7-20) Creatinine 0.8 mg/dL (0.6-1.0) Estimated GFR (Cockcroft-Gault) 78.7 BUN/Creatinine Ratio 18 (6-20) Glucose Level 377 mg/dL (70-99) Calcium Level 9.1 mg/dL (8.5-10.1) Total Bilirubin 1.6 mg/dL (0.2-1.0) Aspartate Amino Transf (AST/SGOT) 434 U/L (15-37) Alanine Aminotransferase (ALT/SGPT) 265 U/L (14-59) Alkaline Phosphatase 216 U/L (46-116) Troponin I Quantitative < 0.017 ng/mL (0.000-0.055) Total Protein 8.0 g/dL (6.4-8.2) Albumin 3.4 g/dL (3.4-5.0) Albumin/Globulin Ratio 0.7 (1.0-1.7) Triglycerides Level 316 mg/dL (0-150) Amylase Level 1574 U/L (25-115) Lipase 88671 U/L (73-393) Ethyl Alcohol Level < 10 mg/dL (0-10) Urine Collection Type Unknown Urine Color Yellow Urine Clarity Clear Urine pH 5.5 Urine Specific [place] 1.025 Urine Protein 100 mg/dL (NEG-TRACE) Urine Glucose (UA) >=1000 mg/dL (NEG) Urine Ketones (Stick) Negative mg/dL (NEG) Urine Blood Negative (NEG) Urine Nitrite Negative (NEG) Urine Bilirubin Small (NEG) Urine Urobilinogen Dipstick 0.2 mg/dL (0.2 mg/dL) Urine Leukocyte Esterase Moderate (NEG) Urine RBC Occ /HPF (0-2) Urine WBC Tntc /HPF (0-4) Urine Squamous Epithelial Cells Mod /LPF Urine Bacteria Moderate /HPF (0-FEW) Urine Mucus Slight /LPF Lactic Acid Level 0.9 mmol/L (0.4-2.0) Glucose (Fingerstick) 358 mg/dL (70-99) Test 04/25/19 07:23 04/25/19 08:53 04/25/19 11:07 04/25/19 16:55 Glucose (Fingerstick) 261 mg/dL (70-99) 219 mg/dL (70-99) 214 mg/dL (70-99) Sodium Level 136 mmol/L (136-145) Potassium Level 3.6 mmol/L (3.5-5.1) Chloride Level 103 mmol/L (98-107) Carbon Dioxide Level 22 mmol/L (21-32) Anion Gap 11 (6-14) Blood Urea Nitrogen 8 mg/dL (7-20) Creatinine 0.6 mg/dL (0.6-1.0) Estimated GFR (Cockcroft-Gault) 109.6 BUN/Creatinine Ratio 13 (6-20) Glucose Level 233 mg/dL (70-99) Calcium Level 8.1 mg/dL (8.5-10.1) Iron Level 34 ug/dL (50-170) Total Iron Binding Capacity 389 ug/dL (250-450) Iron Saturation 9 % (15-34) Total Bilirubin 1.5 mg/dL (0.2-1.0) Aspartate Amino Transf (AST/SGOT) 258 U/L (15-37) Alanine Aminotransferase (ALT/SGPT) 237 U/L (14-59) Alkaline Phosphatase 205 U/L (46-116) Total Protein 7.5 g/dL (6.4-8.2) Albumin 2.8 g/dL (3.4-5.0) Albumin/Globulin Ratio 0.6 (1.0-1.7) Test 04/25/19 21:10 04/26/19 07:18 04/26/19 07:42 04/26/19 11:09 Glucose (Fingerstick) 184 mg/dL (70-99) 162 mg/dL (70-99) 171 mg/dL (70-99) White Blood Count 20.5 x10^3/uL (4.0-11.0) Red Blood Count 5.32 x10^6/uL (3.50-5.40) Hemoglobin 9.3 g/dL (12.0-15.5) Hematocrit 31.2 % (36.0-47.0) Mean Corpuscular Volume 59 fL (79-100) Mean Corpuscular Hemoglobin 17 pg (25-35) Mean Corpuscular Hemoglobin Concent 30 g/dL (31-37) Red Cell Distribution Width 22.5 % (11.5-14.5) Platelet Count 285 x10^3/uL (140-400) Neutrophils (%) (Auto) 81 % (31-73) Lymphocytes (%) (Auto) 13 % (24-48) Monocytes (%) (Auto) 6 % (0-9) Eosinophils (%) (Auto) 1 % (0-3) Basophils (%) (Auto) 0 % (0-3) Neutrophils # (Auto) 16.6 x10^3/uL (1.8-7.7) Lymphocytes # (Auto) 2.6 x10^3/uL (1.0-4.8) Monocytes # (Auto) 1.1 x10^3/uL (0.0-1.1) Eosinophils # (Auto) 0.1 x10^3/uL (0.0-0.7) Basophils # (Auto) 0.0 x10^3/uL (0.0-0.2) Sodium Level 136 mmol/L (136-145) Potassium Level 2.9 mmol/L (3.5-5.1) Chloride Level 102 mmol/L (98-107) Carbon Dioxide Level 22 mmol/L (21-32) Anion Gap 12 (6-14) Blood Urea Nitrogen 7 mg/dL (7-20) Creatinine 0.6 mg/dL (0.6-1.0) Estimated GFR (Cockcroft-Gault) 109.6 BUN/Creatinine Ratio 12 (6-20) Glucose Level 151 mg/dL (70-99) Calcium Level 7.7 mg/dL (8.5-10.1) Total Bilirubin 0.8 mg/dL (0.2-1.0) Aspartate Amino Transf (AST/SGOT) 93 U/L (15-37) Alanine Aminotransferase (ALT/SGPT) 142 U/L (14-59) Alkaline Phosphatase 188 U/L (46-116) Total Protein 7.5 g/dL (6.4-8.2) Albumin 2.7 g/dL (3.4-5.0) Albumin/Globulin Ratio 0.6 (1.0-1.7) Lipase 1149 U/L (73-393) Laboratory Tests Test 04/25/19 16:55 04/25/19 21:10 04/26/19 07:18 04/26/19 07:42 Glucose (Fingerstick) 214 mg/dL (70-99) 184 mg/dL (70-99) 162 mg/dL (70-99) White Blood Count 20.5 x10^3/uL (4.0-11.0) Red Blood Count 5.32 x10^6/uL (3.50-5.40) Hemoglobin 9.3 g/dL (12.0-15.5) Hematocrit 31.2 % (36.0-47.0) Mean Corpuscular Volume 59 fL (79-100) Mean Corpuscular Hemoglobin 17 pg (25-35) Mean Corpuscular Hemoglobin Concent 30 g/dL (31-37) Red Cell Distribution Width 22.5 % (11.5-14.5) Platelet Count 285 x10^3/uL (140-400) Neutrophils (%) (Auto) 81 % (31-73) Lymphocytes (%) (Auto) 13 % (24-48) Monocytes (%) (Auto) 6 % (0-9) Eosinophils (%) (Auto) 1 % (0-3) Basophils (%) (Auto) 0 % (0-3) Neutrophils # (Auto) 16.6 x10^3/uL (1.8-7.7) Lymphocytes # (Auto) 2.6 x10^3/uL (1.0-4.8) Monocytes # (Auto) 1.1 x10^3/uL (0.0-1.1) Eosinophils # (Auto) 0.1 x10^3/uL (0.0-0.7) Basophils # (Auto) 0.0 x10^3/uL (0.0-0.2) Sodium Level 136 mmol/L (136-145) Potassium Level 2.9 mmol/L (3.5-5.1) Chloride Level 102 mmol/L (98-107) Carbon Dioxide Level 22 mmol/L (21-32) Anion Gap 12 (6-14) Blood Urea Nitrogen 7 mg/dL (7-20) Creatinine 0.6 mg/dL (0.6-1.0) Estimated GFR (Cockcroft-Gault) 109.6 BUN/Creatinine Ratio 12 (6-20) Glucose Level 151 mg/dL (70-99) Calcium Level 7.7 mg/dL (8.5-10.1) Total Bilirubin 0.8 mg/dL (0.2-1.0) Aspartate Amino Transf (AST/SGOT) 93 U/L (15-37) Alanine Aminotransferase (ALT/SGPT) 142 U/L (14-59) Alkaline Phosphatase 188 U/L (46-116) Total Protein 7.5 g/dL (6.4-8.2) Albumin 2.7 g/dL (3.4-5.0) Albumin/Globulin Ratio 0.6 (1.0-1.7) Lipase 1149 U/L (73-393) Test 04/26/19 11:09 Glucose (Fingerstick) 171 mg/dL (70-99) Problem List Problems Medical Problems: (1) Epigastric abdominal pain Status: Acute Assessment/Plan wbc 20, afebrile, pain improved supportive measures for pancreatitis she is concerned about getting home to her children ISAAC ALLISON MD 04/26/19 1446: SURGICAL PROGRESS NOTE Assessment/Plan pt seen sitting in bedside chair having had some clear liquids and ice cream labs noted acute pancreatitis probable cholelithiasis follow labs discuss l/s kathleen when appropriate KRYSTAL LINTON APRN Apr 26, 2019 11:35 ISAAC ALLISON MD Apr 26, 2019 14:46
--- NOTE | 2019-04-26 12:53 | PDOC3 ---
Discharge Summary Visit Information Date of Admission: Apr 25, 2019 Date of Discharge: Apr 26, 2019 Final Diagnosis acute abdominal pain pancreatitis, gallsstone transaminitis, with gallstones, obese, BMI 30 DM2, lantus, Problems Medical Problems: (1) Epigastric abdominal pain Status: Acute Brief Hospital Course Allergies Allergies Coded Allergies Type Severity Reaction Last Updated Verified aspirin Allergy Intermediate Rash 04/18/16 Yes dextromethorphan Allergy Intermediate rash 04/18/16 Yes doxylamine Allergy Intermediate rash 04/18/16 Yes pseudoephedrine Allergy Intermediate rash 04/18/16 Yes Vital Signs Vital Signs Date Time Temp Pulse Resp B/P (MAP) Pulse Ox O2 Delivery O2 Flow Rate FiO2 04/26/19 10:56 97.8 84 18 130/62 (84) 98 Room Air 97.8 Lab Results Laboratory Tests Test 04/24/19 18:30 04/24/19 20:15 04/24/19 22:45 04/25/19 00:36 White Blood Count 15.1 x10^3/uL (4.0-11.0) Red Blood Count 5.55 x10^6/uL (3.50-5.40) Hemoglobin 9.8 g/dL (12.0-15.5) Hematocrit 32.6 % (36.0-47.0) Mean Corpuscular Volume 59 fL (79-100) Mean Corpuscular Hemoglobin 18 pg (25-35) Mean Corpuscular Hemoglobin Concent 30 g/dL (31-37) Red Cell Distribution Width 22.2 % (11.5-14.5) Platelet Count 327 x10^3/uL (140-400) Neutrophils (%) (Auto) 83 % (31-73) Lymphocytes (%) (Auto) 10 % (24-48) Monocytes (%) (Auto) 6 % (0-9) Eosinophils (%) (Auto) 1 % (0-3) Basophils (%) (Auto) 0 % (0-3) Neutrophils # (Auto) 12.5 x10^3/uL (1.8-7.7) Lymphocytes # (Auto) 1.5 x10^3/uL (1.0-4.8) Monocytes # (Auto) 0.9 x10^3/uL (0.0-1.1) Eosinophils # (Auto) 0.1 x10^3/uL (0.0-0.7) Basophils # (Auto) 0.0 x10^3/uL (0.0-0.2) Platelet Estimate Adequate (ADEQUATE) Giant Platelets Occ Polychromasia Slight Hypochromasia Marked Anisocytosis Mod Microcytosis Marked Target Cells Few Tear Drop Cells Occ D-Dimer (Diane) 0.55 ug/mlFEU (0.00-0.50) Sodium Level 133 mmol/L (136-145) Potassium Level 4.5 mmol/L (3.5-5.1) Chloride Level 97 mmol/L (98-107) Carbon Dioxide Level 25 mmol/L (21-32) Anion Gap 11 (6-14) Blood Urea Nitrogen 14 mg/dL (7-20) Creatinine 0.8 mg/dL (0.6-1.0) Estimated GFR (Cockcroft-Gault) 78.7 BUN/Creatinine Ratio 18 (6-20) Glucose Level 377 mg/dL (70-99) Calcium Level 9.1 mg/dL (8.5-10.1) Total Bilirubin 1.6 mg/dL (0.2-1.0) Aspartate Amino Transf (AST/SGOT) 434 U/L (15-37) Alanine Aminotransferase (ALT/SGPT) 265 U/L (14-59) Alkaline Phosphatase 216 U/L (46-116) Troponin I Quantitative < 0.017 ng/mL (0.000-0.055) Total Protein 8.0 g/dL (6.4-8.2) Albumin 3.4 g/dL (3.4-5.0) Albumin/Globulin Ratio 0.7 (1.0-1.7) Triglycerides Level 316 mg/dL (0-150) Amylase Level 1574 U/L (25-115) Lipase 46524 U/L (73-393) Ethyl Alcohol Level < 10 mg/dL (0-10) Urine Collection Type Unknown Urine Color Yellow Urine Clarity Clear Urine pH 5.5 Urine Specific [place] 1.025 Urine Protein 100 mg/dL (NEG-TRACE) Urine Glucose (UA) >=1000 mg/dL (NEG) Urine Ketones (Stick) Negative mg/dL (NEG) Urine Blood Negative (NEG) Urine Nitrite Negative (NEG) Urine Bilirubin Small (NEG) Urine Urobilinogen Dipstick 0.2 mg/dL (0.2 mg/dL) Urine Leukocyte Esterase Moderate (NEG) Urine RBC Occ /HPF (0-2) Urine WBC Tntc /HPF (0-4) Urine Squamous Epithelial Cells Mod /LPF Urine Bacteria Moderate /HPF (0-FEW) Urine Mucus Slight /LPF Lactic Acid Level 0.9 mmol/L (0.4-2.0) Glucose (Fingerstick) 358 mg/dL (70-99) Test 04/25/19 07:23 04/25/19 08:53 04/25/19 11:07 04/25/19 16:55 Glucose (Fingerstick) 261 mg/dL (70-99) 219 mg/dL (70-99) 214 mg/dL (70-99) Sodium Level 136 mmol/L (136-145) Potassium Level 3.6 mmol/L (3.5-5.1) Chloride Level 103 mmol/L (98-107) Carbon Dioxide Level 22 mmol/L (21-32) Anion Gap 11 (6-14) Blood Urea Nitrogen 8 mg/dL (7-20) Creatinine 0.6 mg/dL (0.6-1.0) Estimated GFR (Cockcroft-Gault) 109.6 BUN/Creatinine Ratio 13 (6-20) Glucose Level 233 mg/dL (70-99) Calcium Level 8.1 mg/dL (8.5-10.1) Iron Level 34 ug/dL (50-170) Total Iron Binding Capacity 389 ug/dL (250-450) Iron Saturation 9 % (15-34) Total Bilirubin 1.5 mg/dL (0.2-1.0) Aspartate Amino Transf (AST/SGOT) 258 U/L (15-37) Alanine Aminotransferase (ALT/SGPT) 237 U/L (14-59) Alkaline Phosphatase 205 U/L (46-116) Total Protein 7.5 g/dL (6.4-8.2) Albumin 2.8 g/dL (3.4-5.0) Albumin/Globulin Ratio 0.6 (1.0-1.7) Test 04/25/19 21:10 04/26/19 07:18 04/26/19 07:42 04/26/19 11:09 Glucose (Fingerstick) 184 mg/dL (70-99) 162 mg/dL (70-99) 171 mg/dL (70-99) White Blood Count 20.5 x10^3/uL (4.0-11.0) Red Blood Count 5.32 x10^6/uL (3.50-5.40) Hemoglobin 9.3 g/dL (12.0-15.5) Hematocrit 31.2 % (36.0-47.0) Mean Corpuscular Volume 59 fL (79-100) Mean Corpuscular Hemoglobin 17 pg (25-35) Mean Corpuscular Hemoglobin Concent 30 g/dL (31-37) Red Cell Distribution Width 22.5 % (11.5-14.5) Platelet Count 285 x10^3/uL (140-400) Neutrophils (%) (Auto) 81 % (31-73) Lymphocytes (%) (Auto) 13 % (24-48) Monocytes (%) (Auto) 6 % (0-9) Eosinophils (%) (Auto) 1 % (0-3) Basophils (%) (Auto) 0 % (0-3) Neutrophils # (Auto) 16.6 x10^3/uL (1.8-7.7) Lymphocytes # (Auto) 2.6 x10^3/uL (1.0-4.8) Monocytes # (Auto) 1.1 x10^3/uL (0.0-1.1) Eosinophils # (Auto) 0.1 x10^3/uL (0.0-0.7) Basophils # (Auto) 0.0 x10^3/uL (0.0-0.2) Sodium Level 136 mmol/L (136-145) Potassium Level 2.9 mmol/L (3.5-5.1) Chloride Level 102 mmol/L (98-107) Carbon Dioxide Level 22 mmol/L (21-32) Anion Gap 12 (6-14) Blood Urea Nitrogen 7 mg/dL (7-20) Creatinine 0.6 mg/dL (0.6-1.0) Estimated GFR (Cockcroft-Gault) 109.6 BUN/Creatinine Ratio 12 (6-20) Glucose Level 151 mg/dL (70-99) Calcium Level 7.7 mg/dL (8.5-10.1) Total Bilirubin 0.8 mg/dL (0.2-1.0) Aspartate Amino Transf (AST/SGOT) 93 U/L (15-37) Alanine Aminotransferase (ALT/SGPT) 142 U/L (14-59) Alkaline Phosphatase 188 U/L (46-116) Total Protein 7.5 g/dL (6.4-8.2) Albumin 2.7 g/dL (3.4-5.0) Albumin/Globulin Ratio 0.6 (1.0-1.7) Lipase 1149 U/L (73-393) Laboratory Tests Test 04/25/19 16:55 04/25/19 21:10 04/26/19 07:18 04/26/19 07:42 Glucose (Fingerstick) 214 mg/dL (70-99) 184 mg/dL (70-99) 162 mg/dL (70-99) White Blood Count 20.5 x10^3/uL (4.0-11.0) Red Blood Count 5.32 x10^6/uL (3.50-5.40) Hemoglobin 9.3 g/dL (12.0-15.5) Hematocrit 31.2 % (36.0-47.0) Mean Corpuscular Volume 59 fL (79-100) Mean Corpuscular Hemoglobin 17 pg (25-35) Mean Corpuscular Hemoglobin Concent 30 g/dL (31-37) Red Cell Distribution Width 22.5 % (11.5-14.5) Platelet Count 285 x10^3/uL (140-400) Neutrophils (%) (Auto) 81 % (31-73) Lymphocytes (%) (Auto) 13 % (24-48) Monocytes (%) (Auto) 6 % (0-9) Eosinophils (%) (Auto) 1 % (0-3) Basophils (%) (Auto) 0 % (0-3) Neutrophils # (Auto) 16.6 x10^3/uL (1.8-7.7) Lymphocytes # (Auto) 2.6 x10^3/uL (1.0-4.8) Monocytes # (Auto) 1.1 x10^3/uL (0.0-1.1) Eosinophils # (Auto) 0.1 x10^3/uL (0.0-0.7) Basophils # (Auto) 0.0 x10^3/uL (0.0-0.2) Sodium Level 136 mmol/L (136-145) Potassium Level 2.9 mmol/L (3.5-5.1) Chloride Level 102 mmol/L (98-107) Carbon Dioxide Level 22 mmol/L (21-32) Anion Gap 12 (6-14) Blood Urea Nitrogen 7 mg/dL (7-20) Creatinine 0.6 mg/dL (0.6-1.0) Estimated GFR (Cockcroft-Gault) 109.6 BUN/Creatinine Ratio 12 (6-20) Glucose Level 151 mg/dL (70-99) Calcium Level 7.7 mg/dL (8.5-10.1) Total Bilirubin 0.8 mg/dL (0.2-1.0) Aspartate Amino Transf (AST/SGOT) 93 U/L (15-37) Alanine Aminotransferase (ALT/SGPT) 142 U/L (14-59) Alkaline Phosphatase 188 U/L (46-116) Total Protein 7.5 g/dL (6.4-8.2) Albumin 2.7 g/dL (3.4-5.0) Albumin/Globulin Ratio 0.6 (1.0-1.7) Lipase 1149 U/L (73-393) Test 04/26/19 11:09 Glucose (Fingerstick) 171 mg/dL (70-99) Brief Hospital Course Ms. Welch is a 43 old admit with acute abd pain, Bili up, LFT up, Lipase 40,000 range. pain better at 24 hours, bili down to 0.8, Lipase 1000, able to tolerate liquid diet needs Alondra, she wanted to DC, needs f/u Gen surg clinic, 1 week, Discharge Information Condition at Discharge: Improved Follow Up: Weeks Disposition/Orders: D/C to Home Scheduled Famotidine (Pepcid) 20 Mg Tablet, 20 MG PO BID, #20 Prescribed by: RASHID OBRIEN APRN on 08/04/181934 Last Action: Reviewed on 04/25/1912 by GOKUL YOUNGBLOOD Glyburide (Glyburide) 5 Mg Tablet, 5 MG PO DAILYAC, #30 (Reported) Entered as Reported by: RAMIN VALLES [facility] on 07/18/15 1440 Last Action: Reviewed on 04/25/1912 by GOKUL YOUGNBLOOD Insulin Detemir (Levemir) 100 Unit/1 Ml Vial, 20 UNIT SQ HS for dm, (Reported) Entered as Reported by: GOKUL YOUNGBLOOD on 04/25/1913 Last Action: New Order on 04/25/1913 by GOKUL YOUNGBLOOD Levothyroxine Sodium (Levothyroxine Sodium) 175 Mcg Tablet, 175 MCG PO DAILYAC, #30 (Reported) Entered as Reported by: RAMIN VALLES RPH on 07/18/15 1440 Last Action: Reviewed on 04/25/1912 by GOKUL YOUNGBLOOD Multivitamin (Multi-Vitamin Daily) 1 Each Tablet, 1 EACH PO DAILY for vitamin, (Reported) Entered as Reported by: DAYNA SCOTT on 01/29/16 0800 Last Action: Edited on 04/25/1912 by GOKUL YOUNGBLOOD Scheduled PRN Albuterol Sulfate (Proair Hfa Inhaler) 8.5 Gm Hfa.aer.ad, 1 PUFF INH PRN Q6HRS PRN for SHORTNESS OF BREATH, Ref 0 (Reported) Entered as Reported by: DAYNA SCOTT on 01/29/16 08 Last Action: Reviewed on 04/25/1912 by GOKUL YOUNGBLOOD Calcium Carbonate (Tums) 200 Mg Tab.chew, 200 MG PO PRN PRN for INDIGESTION, (Reported) Entered as Reported by: DAYNA SCOTT on 01/29/16800 Last Action: Edited on 04/25/1912 by GOKUL YOUNGBLOOD Patient Instructions Patient Instructions > 30 min face to face DANIELE Delgado MD Apr 26, 2019 12:53
[2019-04-26 15:00] VITALS: BP 124/60
[2019-04-26] MEDS ORDERED: POTASSIUM CHLORIDE 20 MEQ TABLET.ER. PO ONE (15:00)
--- NOTE | 2019-04-26 18:03 | NUR ---
pt discharged home with family. meds and follow up reviewed. importance of follow up with surgery was stressed with this patient. she v/u. IV dc'd cath intact.
[2019-04-27 04:09] LABS: HEMOGLOBIN A1C 10.9 % (4.8-5.6)
== END 2019-04-26 18:05 | disposition home or self-care (01) | DRG 440 ==
LOC: ER 17:44 → 5 SOUTH 20:43
PROVIDERS: ADMIT Internal Medicine; ATTEND Internal Medicine
DX: K85.10 Biliary acute pancreatitis without necrosis or infection (principal); E03.9 Hypothyroidism, unspecified; E66.9 Obesity, unspecified; K21.9 Gastro-esophageal reflux disease without esophagitis; G43.909 Migraine, unspecified, not intractable, without status migrainosus; D50.9 Iron deficiency anemia, unspecified; K76.0 Fatty (change of) liver, not elsewhere classified; E78.1 Pure hyperglyceridemia; K80.20 Calculus of gallbladder without cholecystitis without obstruction; E11.65 Type 2 diabetes mellitus with hyperglycemia; E87.6 Hypokalemia; Z98.891 History of uterine scar from previous surgery; Z86.73 Personal history of transient ischemic attack (TIA), and cerebral infarction without residual deficits; Z88.6 Allergy status to analgesic agent; Z88.8 Allergy status to other drugs, medicaments and biological substances; Z83.3 Family history of diabetes mellitus; Z68.30 Body mass index [BMI] 30.0-30.9, adult; Z90.710 Acquired absence of both cervix and uterus
CPT/HCPCS: 36415; 71046; 74177; 76705; 80053; 81001; 82150; 82962; 83036; 83540; 83550; 83605; 83690; 84478; 84484; 85025; 85379; 87086; 93005; C9113; G0480; J1756; J1815; J2270; J2405; J3010; J3480; J7030; Q9966; Q9967; G0378

== ENCOUNTER → 2019-09-08 | Outpatient (CLI) | payer MEDICAID ==
[~2019-09-08] MED LIST changes: +INSU100V13 SQ
--- NOTE | 2019-09-08 07:57 | RAD ---
CHEST PA LATERAL History: Right upper quadrant abdominal pain. Productive cough. Comparison: 04/24/2019 two-view chest x-ray exam. Findings: Frontal and lateral views of chest were obtained. The cardiomediastinal silhouette is normal. Pulmonary vasculature is normal. The lungs are clear. No pleural effusion or pneumothorax is seen. There is no acute bone abnormality. Right fourth rib deformity is unchanged. IMPRESSION: No acute cardiopulmonary process. Electronically signed by: Jefry Saab MD (09/08/2019 7:54 AM) [facility]
--- NOTE | 2019-09-08 08:53 | RAD ---
Examination: ABDOMEN LTD History: Right upper quadrant pain Comparison/Correlation: 04/24/2019 Limited abdominal ultrasound and a 04/25/2019 CT abdomen and pelvis with contrast Findings: Limited right upper quadrant ultrasound exam was performed. Infiltration of the liver is present. Liver is borderline enlarged measuring up to 19.2 cm longitudinal. Common bile duct is unremarkable. No biliary dilatation. Punctate nonshadowing gallbladder calculus is present. No findings of cholecystitis. Portal venous flow is normal. Right kidney measures 12.3 cm x 5.8 cm x 4.7 cm. Slight right calyectasis at the upper pole noted. Proximal pancreas is echogenic but otherwise unremarkable. It is not optimally delineated due to bowel gas. Distal pancreas is obscured by bowel gas. Inferior vena cava is unremarkable. Impression: Punctate nonshadowing gallbladder calculus. No finding of acute cholelithiasis or biliary dilatation. Fatty infiltration of the liver. Electronically signed by: Jefry Saab MD (09/08/2019 8:50 AM) [facility]
== END | disposition home or self-care (01) ==
LOC: US 07:09
PROVIDERS: ATTEND Surgery
DX: K80.20 Calculus of gallbladder without cholecystitis without obstruction (principal); K76.0 Fatty (change of) liver, not elsewhere classified; K85.90 Acute pancreatitis without necrosis or infection, unspecified; R05 Cough; M95.4 Acquired deformity of chest and rib
CPT/HCPCS: 71046; 76705

== ENCOUNTER → 2019-09-14 | Outpatient (CLI) | payer MEDICAID ==
[~2019-09-14] MED LIST changes: +CONTRAST GIVEN. MC PRN; +IOHEXOL 300 MG/ML 100ML VIAL. IV ONE
[2019-09-14 10:06] LABS: CREATININE 0.6 mg/dL (0.6-1.0); GFR 109.1
--- NOTE | 2019-09-14 12:29 | RAD ---
EXAM: CT Abdomen and Pelvis with IV contrast INDICATION: Left upper quadrant abdominal pain TECHNIQUE: Multi-detector row CT images were acquired from the lung bases through the abdomen and pelvis with the use of IV contrast. Sagittal and coronal images were acquired from the transaxial data. All CT scans performed at this facility utilize dose optimization techniques as appropriate to the exam, including the following: Automated exposure control and adjustment of the mA and/or KV according to patient size (this includes techniques or standardized protocols for targeted exams where dose is indication/reason for exam). IV CONTRAST: Administered ORAL CONTRAST: Not administered DLP 612.6 mGycm COMPARISON: 04/25/2019 and 08/18/[address] FINDINGS: LOWER CHEST: Unremarkable LIVER: Mild hepatomegaly with the liver measuring 20.8 cm in length. Similar-appearing dense oval nodule in the subcapsular left hepatic lobe in segment 3 measuring 1.2 cm. No additional hepatic lesions are apparent on this phase of contrast enhancement. BILIARY SYSTEM: Gallbladder is unremarkable. Bile ducts are not dilated. PANCREAS: Unremarkable. Previously evident peripancreatic soft tissue stranding has since resolved. SPLEEN: Unremarkable ADRENALS: A 2 cm oval left adrenal nodule is not significantly changed compared with 1.7 x 1.9 cm previously. KIDNEYS & URETERS: Unremarkable BLADDER: Unremarkable REPRODUCTIVE ORGANS: Bilateral tubal ligations. Myomatous uterus with scattered calcifications. GASTROINTESTINAL: The stomach, small bowel, and colon are unremarkable. The appendix is normal. MESENTERY/PERITONEUM/RETROPERITONEUM: Unremarkable VASCULAR: Unremarkable LYMPH NODES: No adenopathy OSSEOUS & SOFT TISSUES: Unremarkable IMPRESSION: 1. Findings of acute pancreatitis have resolved with no residual acute abnormalities on CT to explain left upper quadrant abdominal pain. Correlate with biochemical markers for any evidence of recurrent pancreatitis. 2. Left adrenal nodule measuring 2 cm shows no evidence of hemorrhage or acute inflammation. Electronically signed by: Sushma Jade MD (09/14/2019 12:26 PM) [facility]
== END | disposition home or self-care (01) ==
LOC: CT 14:35
PROVIDERS: ATTEND Surgery
DX: E27.8 Other specified disorders of adrenal gland (principal)
CPT/HCPCS: 36415; 74177; 82565; 84520; Q9967

== ENCOUNTER → 2019-09-26 | Outpatient (CLI) | payer MEDICAID ==
[~2019-09-26] MED LIST changes: +ATOR40TA59 PO; -CONTRAST GIVEN. MC PRN; +FERR325T14 PO; -IOHEXOL 300 MG/ML 100ML VIAL. IV ONE; +LISI10TA2 PO; +OXYC-325 PO; +SITA1TAB11 PO
[2019-09-26 13:15] LABS: BASO % 0 % (0-3); EOS # 0.1 x10^3/uL (0.0-0.7); EOS % 1 % (0-3); HEMATOCRIT 37.8 % (36.0-47.0); HEMOGLOBIN 11.9 g/dL (12.0-15.5); LYMPH # 2.2 x10^3/uL (1.0-4.8); LYMPH % 18 % (24-48); MEAN CORPUSCULAR HEMOGLOBIN 24 pg (25-35); MEAN CORPUSCULAR HGB CONC 31 g/dL (31-37); MEAN CORPUSCULAR VOLUME 75 fL (79-100); MONO # 0.8 x10^3/uL (0.0-1.1); MONO % 7 % (0-9); NEUT # 9.3 x10^3/uL (1.8-7.7); NEUT % 75 % (31-73); PLATELET COUNT 285 x10^3/uL (140-400); RED BLOOD COUNT 5.02 x10^6/uL (3.50-5.40); RED CELL DISTRIBUTION WIDTH 28.8 % (11.5-14.5); WHITE BLOOD COUNT 12.4 x10^3/uL (4.0-11.0)
[2019-09-26 13:18] LABS: ALBUMIN 3.4 g/dL (3.4-5.0); CALCIUM 8.8 mg/dL (8.5-10.1); CREATININE 0.7 mg/dL (0.6-1.0); GFR 91.3; POTASSIUM 4.4 mmol/L (3.5-5.1); TOTAL BILIRUBIN 0.2 mg/dL (0.2-1.0)
[2019-09-26 18:48] LABS: PLT ESTIMATE ADEQUATE (ADEQUATE)
[2019-09-26 18:49] LABS: ANISOCYTOSIS SLIGHT; POLYCHROMASIA SLIGHT
== END | disposition home or self-care (01) ==
LOC: SURGPAT 12:17
PROVIDERS: ATTEND Surgery
DX: Z01.818 Encounter for other preprocedural examination (principal); K80.20 Calculus of gallbladder without cholecystitis without obstruction
CPT/HCPCS: 36415; 80048; 82040; 82247; 85025

== ENCOUNTER 2019-09-28 10:47 | Day surgery (SDC) | payer MEDICAID ==
[~2019-09-28] VITALS: Ht 152.4 cm; Wt 78.5 kg
[~2019-09-28 10:47] MED LIST changes: +HYDROmorphone 2 MG/ML VIAL IV PRN; +IV RINGERS,LACTATED 1000ML 1,000 ML IV SCH; +MORPHINE SULFATE 2 MG/ML VIAL. IV PRN; +ONDANSETRON PF 4 MG/2 ML VIAL. IV PRN; -OXYC-325 PO; +PROCHLORPERAZINE 10 MG/2 ML VIAL. IV PRN; +ceFAZolin SODIUM IV Push 1 GM VIAL. IVP PRN; +fentaNYL PF VIAL 100 MCG/2 ML VIAL IV PRN
[2019-09-28] MEDS ORDERED: PROPOFOL 20 ML IV ONE (10:58)
[2019-09-28] MEDS ORDERED: LIDOCAINE 2% PF 5 ML VIAL. ONE (10:59)
[2019-09-28] MEDS ORDERED: ONDANSETRON PF 4 MG/2 ML VIAL. ONE (11:00)
[2019-09-28] MEDS ORDERED: DEXAMETHASONE SOD PHOS 4 MG/ML VIAL ONE (11:00)
[2019-09-28] MEDS ORDERED: ROCURONIUM 50 MG/5 ML VIAL. ONE (11:00)
[2019-09-28] MEDS ORDERED: IOHEXOL 300 MG/ML 50 ML VIAL. ONE (11:05)
[2019-09-28] MEDS ORDERED: MANNITOL 20% PREMIX 500 ML IV ONE (11:05)
[2019-09-28] MEDS ORDERED: BUPIVACAINE-EPI 0.5%-1:200000 MPF 30 ML VIAL. ONE (11:05)
[2019-09-28] MEDS ORDERED: GLUCAGON,HUMAN RECOMBINANT 1 MG/ML VIAL. ONE (11:05)
[2019-09-28] MEDS ORDERED: SURGICEL HEMOSTAT 4X8 EACH. ONE (11:05)
[2019-09-28] MEDS: INSULIN LISPRO 100 UNIT/ML 3ML VIAL for OP,RR ONLY. SQ PRN ×2 (11:11→13:27)
[2019-09-28] MEDS ORDERED: MIDAZOLAM HCL/PF 2 MG/2 ML VIAL. ONE (11:26)
[2019-09-28] MEDS ORDERED: fentaNYL PF VIAL 100 MCG/2 ML VIAL ONE ×2 (11:26→12:23)
[2019-09-28] MEDS ORDERED: SEVOFLURANE 61 TO 120 MINUTES. IH ONE (12:19)
[2019-09-28] MEDS ORDERED: GLYCOPYRROLATE 1 MG/5 ML VIAL. ONE (12:24)
[2019-09-28] MEDS ORDERED: NEOSTIGMINE METHYLSULFATE 5 MG/5 ML SYRINGE. ONE (12:24)
--- NOTE | 2019-09-28 12:41 | RAD ---
EXAM: Intraoperative cholangiogram. HISTORY: Cholecystectomy. COMPARISON: 09/14/2019 FINDINGS: A single fluoroscopic image of the abdomen was obtained during an intraoperative cholangiogram. The total fluoroscopy time is 10.7 seconds. The images demonstrate contrast opacification of the biliary tree and proximal duodenum. No stricture or retained stone is seen. IMPRESSION: Intraoperative cholangiogram without evidence of a retained stone. Electronically signed by: Naina Davis MD (09/28/2019 12:39 PM) [facility] – [place], [place]
[2019-09-28] MEDS: fentaNYL PF VIAL 100 MCG/2 ML VIAL IV PRN ×2 (13:19→13:28)
[2019-09-28] MEDS ORDERED: OXYC-325 PO (13:21)
--- NOTE | 2019-09-28 13:23 | DISCH ---
DISCHARGE INSTRUCTIONS Condition on Discharge Condition on Discharge: Stable Activity After Discharge Activity Instructions for Disc: Activity as tolerated, Avoid exertion Lifting Instructions after Dis: No heavy lifting, No pulling or pushing Exercise Instruction after Dis: Progress as tolerated Driving Instructions after Dis: Do not drive (3-4 days) Weight Bearing Status after Di: As tolerated Diet after Discharge Diet after Discharge: Low Fat, Diabetic No Calorie Level Checks after Discharge Checks after discharge: Check blood sugar, ac/hs Follow-Up Follow Up With: Jose G next week Treatment/Equipment after DC Adaptive Equipment Issued: None ISAAC ALLISON MD Sep 28, 2019 13:23
--- NOTE | 2019-09-28 13:28 | PDOC ---
BRIEF OPERATIVE NOTE Date: Sep 28, 2019 Pre-Op Diagnosis symptomatic cholelithiasis Post-Op Diagnosis same Procedure Performed l/s kathleen with dylon Surgeon Jose G Geometry Professor Michele MALDONADO Anesthesia Type: General Blood Loss 10cc IV Fluid 300cc Specimens Obtained GB Findings supple GB, normal grams Complications none Operative Note Wk # [id number] ISAAC ALLISON MD Sep 28, 2019 13:28
[2019-09-28] MEDS ORDERED: oxyCODONE/APAP 5/325 1 TAB TABLET PO ONE (13:45)
--- NOTE | 2019-09-28 13:46 | OP ---
DATE OF SURGERY: 09/28/2019 PREOPERATIVE DIAGNOSIS: Symptomatic cholelithiasis. POSTOPERATIVE DIAGNOSIS: Symptomatic cholelithiasis. PROCEDURE: Laparoscopic cholecystectomy with cholangiogram. SURGEON: Isaac Allison MD DENTAL COORDINATOR: JOEL Bautista. ANESTHESIA: General endotracheal. ESTIMATED BLOOD LOSS: 10 mL. INTRAVENOUS FLUIDS: 300 mL. INDICATIONS: The patient is a 44-year-old insulin-dependent diabetic with gallstones, brought for cholecystectomy. OPERATIVE FINDINGS: The liver was fatty and rounded. The gallbladder was supple. Cholangiograms were normal. Visual inspection of the remainder of the abdomen showed only some omental adhesions in the lower abdomen from previous surgery. DESCRIPTION OF PROCEDURE: The patient brought to the operating suite, given a general endotracheal anesthetic and the abdomen prepped and draped in usual sterile fashion. A supraumbilical incision was infiltrated with local anesthetic, incised and a 5 mm Visiport used to gain access into the abdominal cavity, taking care to avoid injury to abdominal contents. Pneumoperitoneum established. Camera inserted. Inspection carried out with results as noted above. With the table in reverse Trendelenburg rolled to the left, the epigastric, midclavicular, and lateral ports were placed under direct vision. The gallbladder was retracted superolaterally and the cystic duct and cystic artery were identified. The duct was clipped on the gallbladder side. Cholangiograms were made. These were normal. In light of this, the catheter was removed. The cystic duct was clipped x 3 and divided, taking care to avoid injury or compromise the common duct. An anterior and posterior branch of the cystic artery were clipped and divided and gallbladder freed from the bed and placed in an EndoCatch bag. Hemostasis obtained with cautery and a small piece of Surgicel. No bile leak seen. Table returned to level. Gallbladder delivered through the epigastric incision, which was then closed with interrupted 0 Vicryl suture. Intra-abdominal pressure decreased to 6 cm of water. No bleeding from the epigastric closure or from the midclavicular or lateral port sites after their removal. Abdomen decompressed, camera removed. Skin incisions closed with subcuticular 4-0 Monocryl. Steri-Strips and sterile dressings applied. The patient awakened from her anesthetic and taken to the recovery room in satisfactory condition. ISAAC ALLISON MD DR: Arcenio JOB#: [id number] / [id number]
[2019-09-28 14:07] VITALS: BP 134/68
--- NOTE | 2019-09-29 17:07 | PATHOLOGY ---
[facility] Accession Number: [id number] . 01 Material submitted: . gallbladder - GALLBLADDER . 01 Clinical history: . Cholecystitis . 02 Diagnosis: Gallbladder, laparoscopic cholecystectomy: - Chronic cholecystitis. ([facility] 09/29/2019) [facility] 09/29/2019 1535 Local . 02 Comment: There are no calculi identified within the gallbladder lumen or specimen container. There is no evidence of malignancy. ([facility] 09/29/2019) . . 02 Electronically signed: . Gaurav Lewis MD, Pathologist NPI- [id number] . 01 Gross description: . The specimen is received in formalin, labeled "Brennan Rigoberto", "gallbladder". Received is an intact gallbladder measuring 8.2 x 3.5 x 2.1 cm. The external surface has a wrinkled, shiny, ltxr-wqzl-hhvt-green appearance. Opening the gallbladder reveals a pale orange-handy, spongy, bile-stained mucosa. No solid masses or nodules are identified. The gallbladder wall ranges in thickness from 0.1 cm to 0.2 cm. No calculi are identified within the gallbladder or container. Chest Painting Leader sections are submitted in cassette A1.([facility]; 09/28/2019) [facility] 09/29/2019 1533 Local . 02 Pathologist provided ICD-10: K81.1 . 02 CPT . 125001 Specimen Comment: A courtesy copy of this report has been sent to [phone] Specimen Comment: Report sent to Performed at: 01 [facility] [address] [place] [address] [address], [place], [place] [id number] MD Eldon Casey MD Phone: [phone] Performed at: 02 [facility] [address], [place] [id number] MD Gaurav Lewis MD Phone: [phone]
== END 2019-09-28 14:35 | disposition home or self-care (01) ==
LOC: SURG 10:47
PROVIDERS: ATTEND Surgery
DX: K80.10 Calculus of gallbladder with chronic cholecystitis without obstruction (principal); I10 Essential (primary) hypertension; J45.909 Unspecified asthma, uncomplicated; K21.9 Gastro-esophageal reflux disease without esophagitis; D64.9 Anemia, unspecified; E11.9 Type 2 diabetes mellitus without complications; E07.9 Disorder of thyroid, unspecified; E78.5 Hyperlipidemia, unspecified; Z88.6 Allergy status to analgesic agent; Z88.8 Allergy status to other drugs, medicaments and biological substances; Z79.899 Other long term (current) drug therapy; Z86.73 Personal history of transient ischemic attack (TIA), and cerebral infarction without residual deficits
CPT/HCPCS: 47563; 74300; 81025; 82962; 88304; A7015; J0690; J1100; J2001; J2250; J2405; J2704; J2710; J3010; J3490; J7030; Q9967; J1610

== ENCOUNTER 2020-09-23 13:07 | Emergency (ER) | payer MEDICAID ==
[~2020-09-23] VITALS: Ht 152.4 cm; Wt 77.0 kg
[~2020-09-23 13:07] MED LIST changes: -HYDROmorphone 2 MG/ML VIAL IV PRN; -IV RINGERS,LACTATED 1000ML 1,000 ML IV SCH; -MORPHINE SULFATE 2 MG/ML VIAL. IV PRN; -ONDANSETRON PF 4 MG/2 ML VIAL. IV PRN; +OXYC-325 PO; -PROCHLORPERAZINE 10 MG/2 ML VIAL. IV PRN; -ceFAZolin SODIUM IV Push 1 GM VIAL. IVP PRN; -fentaNYL PF VIAL 100 MCG/2 ML VIAL IV PRN
[2020-09-23 14:01] VITALS: BP 180/86
--- NOTE | 2020-09-23 14:20 | PHYS DOC ---
Past Medical History Past Medical History: Diabetes-Type II, Hypothyroid, Stroke Additional Past Medical Histor: controlled DM,ovarian cyst Past Surgical History: Cholecystectomy, Additional Past Surgical Histo: skin ca removed from R FA, cerclage Smoking Status: Never Smoker Alcohol Use: None Drug Use: None General Adult EDM: Chief Complaint: ABDOMINAL PAIN HPI: HPI: Patient is a 45 year old female presented to ER for evaluation of abdominal pain and distention since yesterday. Patient denies any nausea vomiting, no fever, no cough. Patient states she feels bloated like when she was . Review of Systems: Review of Systems: Constitutional: Denies fever or chills. [] Eyes: Denies change in visual acuity. [] HENT: Denies nasal congestion or sore throat. [] Respiratory: Denies cough or shortness of breath. [] Cardiovascular: Denies chest pain or edema. [] GI: Positive for abdominal pain and distention.] : Denies dysuria. [] Musculoskeletal: Denies back pain or joint pain. [] Integument: Denies rash. [] Neurologic: Denies headache, focal weakness or sensory changes. [] Endocrine: Denies polyuria or polydipsia. [] Lymphatic: Denies swollen glands. [] Psychiatric: Denies depression or anxiety. [] Heart Score: Risk Factors: Risk Factors: DM, Current or recent (<one month) smoker, HTN, HLP, family history of CAD, obesity. Risk Scores: Score 0 - 3: 2.5% MACE over next 6 weeks - Discharge Home Score 4 - 6: 20.3% MACE over next 6 weeks - Admit for Clinical Observation Score 7 - 10: 72.7% MACE over next 6 weeks - Early Invasive Strategies Allergies: Allergies: Allergies Coded Allergies Type Severity Reaction Last Updated Verified aspirin Allergy Intermediate Rash 09/28/19 Yes dextromethorphan Allergy Intermediate rash 09/28/19 Yes doxylamine Allergy Intermediate rash 09/28/19 Yes pseudoephedrine Allergy Intermediate rash 09/28/19 Yes Physical Exam: PE: Constitutional: Well developed, well nourished, no acute distress, non-toxic appearance. [] HENT: Normocephalic, atraumatic, bilateral external ears normal, oropharynx moist, no oral exudates, nose normal. [] Eyes: PERRLA, EOMI, conjunctiva normal, no discharge. [] Neck: Normal range of motion, no tenderness, supple, no stridor. [] Cardiovascular:Heart rate regular rhythm, no murmur [] Lungs & Thorax: Bilateral breath sounds clear to auscultation [] Abdomen: Abdomen is distended, hypoactive bowel sounds, diffuse tenderness to palpation, no masses, no pulsatile masses. [] Skin: Warm, dry, no erythema, no rash. [] Back: No tenderness, no CVA tenderness. [] Extremities: No tenderness, no cyanosis, no clubbing, ROM intact, no edema. [] Neurologic: Alert and oriented X 3, normal motor function, normal sensory function, no focal deficits noted. [] Psychologic: Affect normal, judgement normal, mood normal. [] Current Patient Data: Labs: Laboratory Tests Test 09/23/20 14:04 POC Urine HCG, Qualitative Hcg negative (Negative) Vital Signs: Vital Signs Date Time Temp Pulse Resp B/P (MAP) Pulse Ox O2 Delivery O2 Flow Rate FiO2 09/23/20 14:01 98.2 75 18 180/86 (117) 99 Room Air 98.2 EKG: EKG: [] Radiology/Procedures: Radiology/Procedures: [][facility] [address] [place] [id number] IMAGING REPORT Signed PATIENT: BHAVANI ELIASCOUNT: [id number] : 1975 LOCATION: ER AGE: 45 SEX: F EXAM STATUS: REG ER ORD. PHYSICIAN: RONAK ARTEAGA DO REASON: right side abdominal pain PROCEDURE: CT ABD PELV W/ IV CONTRST ONLY INDICATION: Reason: right side abdominal pain / Spl. Instructions: IV OMNI 300 75 MLS / History: . COMPARISON: September 14 2019 TECHNIQUE: Axial CT images obtained through the abdomen and pelvis with contrast. One or more of the following individualized dose reduction techniques were utilized for this examination: 1. Automated exposure control; 2. Adjustment of the mA and/or kV according to patient size; 3. Use of iterative reconstruction technique. FINDINGS: Multifocal plaque within the vasculature. No intrahepatic bile duct dilation. Postcholecystectomy changes. Heterogenous lesion is seen at the left lobe liver anteriorly measuring about 12 mm. The liver is prominent in size. No peripancreatic fluid collection. Spleen is unremarkable. Left adrenal nodule, 23 mm. No left-sided hydronephrosis. Urinary bladder is partially distended. No right-sided hydronephrosis. There are multiple lesions within the uterus with some calcifications as well as low density which could be from uterine fibroids. Low-density lesion at the left adnexa with suspected measuring up to about 25 mm. Could be from a cyst or dominant follicle. Exophytic fibroid could also have a similar appearance. No periappendiceal inflammatory changes. There is some subcutaneous edema to the fat anteriorly. Degenerative changes of the spine with osteophyte formation. IMPRESSION: * No evidence of appendicitis or bowel obstruction. * Suspected uterine fibroids. * Indeterminate left adrenal nodule. If additional clarification is desired follow-up MRI or CT adrenal protocol could better evaluate. Electronically signed by: Gerard Pennington MD (09/23/2020 4:47 PM) [id number] DICTATED and SIGNED BY: GERARD PENNINGTON MD DATE: 09/23/20 [id number] 0 Course & Med Decision Making: Course & Med Decision Making Pertinent Labs and Imaging studies reviewed. (See chart for details) Patient is a 45-year-old female who presented to ER for evaluation of abdominal pain and distention, CT scan of her abdomen pelvic show enlarged fibroids. Patient is doing much better now, we will discharge her home with some pain medication, patient will need to follow-up with ADMINISTRATIVE NURSING SUPERVISOR doctor for outpatient evaluation and treatment. Patient is amenable to plan of care. Dragon Disclaimer: Dragnayeli Disclaimer: This electronic medical record was generated, in whole or in part, using a voice recognition dictation system. Departure Departure Impression: Primary Impression: Uterine fibroid Additional Impression: Abdominal pain Condition: IMPROVED Referrals: UNKNOWN PCP NAME (PCP) VITALIY BILLINGS Jr, MD Please follow up the OB DOCTOR BELOW FOR OUTPATIENT EVALUATION AND TREATMENT. Patient Instructions: Uterine Fibroid, [id number] Additional Instructions: Thank you for visiting our Emergency Department. We appreciate you trusting us with your care. If any additional problems come up don't hesitate to return to visit us. Please follow up with your primary care provider so they can plan additional care if needed and know about the problem that you had. If symptoms worsen come back to the Emergency Department. Any concerning symptoms that start such as chest pain, shortness of air, weakness or numbness on one side of the body, running high fevers or any other concerning symptoms return to the ER. Scripts Tramadol Hcl (TRAMADOL HCL) 50 Mg Tablet 50 MG PO Q6HRS PRN for PAIN, #20 TAB Prov: RONAK ARTEAGA DO 09/23/20 RONAK ARTEAGA DO Sep 23, 2020 14:20
[2020-09-23 14:24] LABS: BILIRUBIN,URINE NEGATIVE (NEG); CLARITY,URINE CLEAR; COLOR,URINE YELLOW; NITRITE,URINE NEGATIVE (NEG); PROTEIN,URINE 100 mg/dL (NEG-TRACE); UROBILINOGEN,URINE 0.2 mg/dL (0.2 mg/dL)
[2020-09-23 14:34] LABS: BACTERIA,URINE FEW /HPF (0-FEW); RBC,URINE 0 /HPF (0-2); WBC,URINE 0 /HPF (0-4)
[2020-09-23 15:16] LABS: BASO # 0.2 x10^3/uL (0.0-0.2); BASO % 1 % (0-3); EOS # 0.2 x10^3/uL (0.0-0.7); EOS % 1 % (0-3); HEMATOCRIT 40.3 % (36.0-47.0); HEMOGLOBIN 13.2 g/dL (12.0-15.5); LYMPH # 2.7 x10^3/uL (1.0-4.8); LYMPH % 19 % (24-48); MEAN CORPUSCULAR HEMOGLOBIN 26 pg (25-35); MEAN CORPUSCULAR HGB CONC 33 g/dL (31-37); MEAN CORPUSCULAR VOLUME 80 fL (79-100); MONO # 0.7 x10^3/uL (0.0-1.1); MONO % 5 % (0-9); NEUT # 10.5 x10^3/uL (1.8-7.7); NEUT % 74 % (31-73); PLATELET COUNT 329 x10^3/uL (140-400); RED BLOOD COUNT 5.02 x10^6/uL (3.50-5.40); RED CELL DISTRIBUTION WIDTH 17.7 % (11.5-14.5); WHITE BLOOD COUNT 14.2 x10^3/uL (4.0-11.0)
[2020-09-23 15:30] LABS: CALCIUM 9.9 mg/dL (8.5-10.1); CREATININE 0.8 mg/dL (0.6-1.0); GFR 77.9; POTASSIUM 3.7 mmol/L (3.5-5.1)
[2020-09-23 15:35] LABS: ALBUMIN 3.9 g/dL (3.4-5.0); ALBUMIN/GLOBULIN RATIO 0.7 (1.0-1.7); TOTAL BILIRUBIN 0.3 mg/dL (0.2-1.0); TOTAL PROTEIN 9.3 g/dL (6.4-8.2)
[2020-09-23] MEDS ORDERED: MORPHINE SULFATE 4 MG/ML VIAL. IV ONE (16:00)
[2020-09-23] MEDS ORDERED: CONTRAST GIVEN. MC PRN (16:15)
[2020-09-23] MEDS ORDERED: IOHEXOL 300 MG/ML 100ML VIAL. IV ONE (16:15)
--- NOTE | 2020-09-23 16:49 | RAD ---
INDICATION: Reason: right side abdominal pain / Spl. Instructions: IV OMNI 300 75 MLS / History: . COMPARISON: September 14 2019 TECHNIQUE: Axial CT images obtained through the abdomen and pelvis with contrast. One or more of the following individualized dose reduction techniques were utilized for this examinat ion: 1. Automated exposure control; 2. Adjustment of the mA and/or kV according to patient size; 3 . Use of iterative reconstruction technique. FINDINGS: Multifocal plaque within the vasculature. No intrahepatic bile duct dilation. Postcholecystectomy changes. Heterogenous lesion is seen at the left lobe liver anteriorly measuring about 12 mm. The liver is pro minent in size. No peripancreatic fluid collection. Spleen is unremarkable. Left adrenal nodule, 23 mm. No left-sided hydronephrosis. Urinary bladder is partially distended. No right-sided hydronephrosis. There are multiple lesions within the uterus with some calcifications as well as low density which co uld be from uterine fibroids. Low-density lesion at the left adnexa with suspected measuring up to ab out 25 mm. Could be from a cyst or dominant follicle. Exophytic fibroid could also have a similar nazia earance. No periappendiceal inflammatory changes. There is some subcutaneous edema to the fat anteriorly. Degenerative changes of the spine with osteophyte formation. IMPRESSION: * No evidence of appendicitis or bowel obstruction. * Suspected uterine fibroids. * Indeterminate left adrenal nodule. If additional clarification is desired follow-up MRI or CT adre nal protocol could better evaluate. Electronically signed by: Gerard Mishra MD (09/23/2020 4:47 PM) [id number]
[2020-09-23] MEDS ORDERED: TRAM50TA PO (17:16)
== END 2020-09-23 17:41 | disposition home or self-care (01) ==
LOC: ER 13:07
DX: D25.9 Leiomyoma of uterus, unspecified (principal); R10.9 Unspecified abdominal pain; R14.0 Abdominal distension (gaseous); E11.9 Type 2 diabetes mellitus without complications; E03.9 Hypothyroidism, unspecified; I25.2 Old myocardial infarction; Z90.49 Acquired absence of other specified parts of digestive tract; Z98.890 Other specified postprocedural states; Z85.9 Personal history of malignant neoplasm, unspecified; Z88.6 Allergy status to analgesic agent; Z88.8 Allergy status to other drugs, medicaments and biological substances
CPT/HCPCS: 36415; 74177; 80053; 81001; 81025; 83690; 85025; 96374; 99285; J2270; Q9967

== ENCOUNTER → 2020-10-05 | Outpatient (CLI) | payer MEDICAID ==
[2020-09-23 14:01] VITALS: BP 180/86
[~2020-10-05] MED LIST changes: +IBUP-1007 PO; +LISI10TA16 PO; -LISI10TA2 PO; +METH4TAB2 PO; +TRAM50TA PO
[2020-10-05 12:18] LABS: BASO # 0.1 x10^3/uL (0.0-0.2); BASO % 1 % (0-3); EOS # 0.1 x10^3/uL (0.0-0.7); EOS % 1 % (0-3); HEMATOCRIT 40.8 % (36.0-47.0); HEMOGLOBIN 13.3 g/dL (12.0-15.5); LYMPH # 2.8 x10^3/uL (1.0-4.8); LYMPH % 24 % (24-48); MEAN CORPUSCULAR HEMOGLOBIN 27 pg (25-35); MEAN CORPUSCULAR HGB CONC 33 g/dL (31-37); MEAN CORPUSCULAR VOLUME 82 fL (79-100); MONO # 0.6 x10^3/uL (0.0-1.1); MONO % 5 % (0-9); NEUT # 8.2 x10^3/uL (1.8-7.7); NEUT % 70 % (31-73); PLATELET COUNT 323 x10^3/uL (140-400); RED BLOOD COUNT 4.97 x10^6/uL (3.50-5.40); RED CELL DISTRIBUTION WIDTH 17.4 % (11.5-14.5); WHITE BLOOD COUNT 11.7 x10^3/uL (4.0-11.0)
[2020-10-06 20:07] LABS: FSH 10.4 mIU/mL (.); PROLACTIN 8.8 ng/mL (4.8-23.3)
== END ==
LOC: LAB 11:22
PROVIDERS: ATTEND Obstetrics & Gynecology
DX: N93.9 Abnormal uterine and vaginal bleeding, unspecified (principal)
CPT/HCPCS: 36415; 83001; 84146; 84443; 85025

== ENCOUNTER 2020-12-09 07:55 | Emergency (ER) | payer MEDICAID ==
[~2020-12-09] VITALS: Ht 153.7 cm; Wt 78.9 kg
[~2020-12-09 07:55] MED LIST changes: -IBUP-1007 PO; -METH4TAB2 PO
--- NOTE | 2020-12-09 10:24 | PHYS DOC ---
Past Medical History Past Medical History: Diabetes-Type II, Hypothyroid, Stroke Additional Past Medical Histor: controlled DM,ovarian cyst Past Surgical History: Cholecystectomy, , Tubal ligation Additional Past Surgical Histo: skin ca removed from R FA, cerclage Smoking Status: Never Smoker Alcohol Use: Rarely Drug Use: None General Adult EDM: Chief Complaint: FOOT INJURY PAIN HPI: HPI: Patient is a 45 year old female who presents with states for the last 2 month every time she goes to stand up and put pressure on her left foot she has pain in the left heel that is sharp and shooting. She states is very painful and she is taking Advil. 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 She denies any injury that she can remember. She has no pain just sitting but when standing she states it is a 9 out of 10. Patient denies focal weakness, injury, numbness or tingling, coolness of the extremity or skin color change. Patient does have a history of diabetes, ovar nancy cyst, cholecystectomy, , stroke, skin cancer removal. Review of Systems: Review of Systems: Constitutional: Denies fever or chills. [] Eyes: Denies change in visual acuity. [] HENT: Denies nasal congestion or sore throat. [] Respiratory: Denies cough or shortness of breath. [] Cardiovascular: Denies chest pain or edema. [] GI: Denies abdominal pain, nausea, vomiting, bloody stools or diarrhea. [] : Denies dysuria. [] Musculoskeletal: Denies back pain or joint pain. + Left heel pain [] Integument: Denies rash. [] Neurologic: Denies headache, focal weakness or sensory changes. [] Endocrine: Denies polyuria or polydipsia. [] Lymphatic: Denies swollen glands. [] Psychiatric: Denies depression or anxiety. [] Heart Score: C/O Chest Pain: No Risk Factors: Risk Factors: DM, Current or recent (<one month) smoker, HTN, HLP, family history of CAD, obesity. Risk Scores: Score 0 - 3: 2.5% MACE over next 6 weeks - Discharge Home Score 4 - 6: 20.3% MACE over next 6 weeks - Admit for Clinical Observation Score 7 - 10: 72.7% MACE over next 6 weeks - Early Invasive Strategies Allergies: Allergies: Allergies Coded Allergies Type Severity Reaction Last Updated Verified aspirin Allergy Intermediate Rash 12/09/20 Yes dextromethorphan Allergy Intermediate rash 12/09/20 Yes doxylamine Allergy Intermediate rash 12/09/20 Yes pseudoephedrine Allergy Intermediate rash 12/09/20 Yes Physical Exam: PE: Constitutional: Well developed, well nourished, no acute distress, non-toxic appearance. [] HENT: Normocephalic, atraumatic, bilateral external ears normal, oropharynx moist, no oral exudates, nose normal. [] Eyes: PERRLA, EOMI, conjunctiva normal, no discharge. [] Neck: Normal range of motion, no tenderness, supple, no stridor. [] Cardiovascular:Heart rate regular rhythm, no murmur [] Lungs & Thorax: Bilateral breath sounds clear to auscultation [] Abdomen: Bowel sounds normal, soft, no tenderness, no masses, no pulsatile masses. [] Skin: Warm, dry, no erythema, no rash. [] Back: No tenderness, no CVA tenderness. [] Extremities: No tenderness, no cyanosis, no clubbing, ROM intact, no edema. [] Neurologic: Alert and oriented X 3, normal motor function, normal sensory function, no focal deficits noted. [] Psychologic: Affect normal, judgement normal, mood normal. Normal physical exam [] Current Patient Data: Vital Signs: Vital Signs Date Time Temp Pulse Resp B/P (MAP) Pulse Ox O2 Delivery O2 Flow Rate FiO2 12/09/20 09:53 98.4 67 18 161/81 (107) 99 Room Air 98.4 EKG: EKG: [] Radiology/Procedures: Radiology/Procedures: [] Impression: [facility] [address] [place] [address] IMAGING REPORT Signed PATIENT: BHAVANI ELIASCOUNT: [id number] : 1975 LOCATION: ER AGE: 45 SEX: F EXAM STATUS: REG ER ORD. PHYSICIAN: RASHID OBRIEN APRN REASON: PAIN IN LEFT HEEL WHEN WT BEARING X 2MO PROCEDURE: FOOT LEFT 3V Exam performed: Left foot 3 views. Indication: Left foot and heel pain when weightbearing for 2 months Date of Service: 12/09/2020 10:13 AM . Comparison: None available Three views left foot findings: Normal alignment is preserved. There is no acute fracture or dislocation. There is mild soft tissue swelling. No foreign bodies identified. Impression: 1. Mild soft tissue swelling without underlying bony abnormality. Electronically signed by: Lisa Escobedo MD (12/09/2020 10:28 AM) [facility] DICTATED and SIGNED BY: LISA ESCOBEDO MD DATE: 12/09/20 [id number] 0 Course & Med Decision Making: Course & Med Decision Making Pertinent Labs and Imaging studies reviewed. (See chart for details) See HPI. Alert and oriented x4. Ambulatory with a steady gait. Speaks in full clear sentences. There is no tenderness to the left foot or heel with palpation. Full range of motion of the ankle. She can wiggle her toes. Full sensations intact. Pedal pulse strong and present. Cap refill less than 2 seconds. No deformity or swelling. No bruising or redness. No foreign body is seen within the heel upon exam. [] Dragon Disclaimer: Dragon Disclaimer: This electronic medical record was generated, in whole or in part, using a voice recognition dictation system. Departure Departure Impression: Primary Impression: Foot pain, left Disposition: 01 DC HOME SELF CARE/HOMELESS Condition: STABLE Referrals: UNKNOWN PCP NAME (PCP) Patient Instructions: Plantar Fasciitis (Heel Spur Syndrome) with [facility] Additional Instructions: Follow-up with your primary care doctor soon as possible. Rest the extremity, use ice, make sure you are wearing good fitted shoes and or buy insoles for your shoes. Take Advil or ibuprofen for your pain. Scripts Methylprednisolone (MEDROL) 4 Mg Tab.ds.pk 1 PKG PO UD, #1 PKG Prov: RASHID OBRIEN SPOOL SORTER 12/09/20 Ibuprofen (IBUPROFEN) 600 Mg Tablet 600 MG PO PRN Q6HRS PRN for INFLAMMATION, #25 TAB Prov: RASHID OBRIEN SPOOL SORTER 12/09/20 RASHID OBRIEN APRN Dec 09, 2020 10:24
--- NOTE | 2020-12-09 10:30 | RAD ---
Exam performed: Left foot 3 views. Indication: Left foot and heel pain when weightbearing for 2 months Date of Service: 12/09/2020 10:13 AM . Comparison: None available Three views left foot findings: Normal alignment is preserved. There is no acute fracture or dislocation. There is mild soft tissue s welling. No foreign bodies identified. Impression: 1. Mild soft tissue swelling without underlying bony abnormality. Electronically signed by: Lisa Escobedo MD (12/09/2020 10:28 AM) [facility]
[2020-12-09] MEDS ORDERED: METH4TAB2 PO (10:39)
[2020-12-09] MEDS ORDERED: IBUP-1007 PO (10:39)
[2020-12-09 11:20] VITALS: BP 179/96
== END 2020-12-09 11:20 | disposition home or self-care (01) ==
LOC: ER 07:55
DX: M79.672 Pain in left foot (principal); E11.9 Type 2 diabetes mellitus without complications; E03.9 Hypothyroidism, unspecified; I25.2 Old myocardial infarction; Z90.49 Acquired absence of other specified parts of digestive tract; Z98.51 Tubal ligation status; Z98.890 Other specified postprocedural states; Z88.6 Allergy status to analgesic agent; Z88.8 Allergy status to other drugs, medicaments and biological substances
CPT/HCPCS: 73630; 99283

== ENCOUNTER 2021-01-11 03:17 | Emergency (ER) | payer MEDICAID ==
[~2021-01-11] VITALS: Ht 152.4 cm; Wt 77.3 kg
[~2021-01-11 03:17] MED LIST changes: +IBUP-1007 PO; +METH4TAB2 PO
[2021-01-11] MEDS ORDERED: guaiFENesin/CODEINE 100mg/10mg 5 ML LIQUID PO STA (03:38)
--- NOTE | 2021-01-11 03:42 | ED.ADGEN ---
Past Medical History Past Medical History: Diabetes-Type II, Hypothyroid, Stroke Additional Past Medical Histor: controlled DM,ovarian cyst Past Surgical History: Cholecystectomy, , Tubal ligation Additional Past Surgical Histo: skin ca removed from R FA, cerclage Smoking Status: Never Smoker Alcohol Use: Rarely Drug Use: None General Adult EDM: Chief Complaint: Congestion HPI: HPI: Patient is a 45 year old female coming in with congestion starting approximately 9 hours prior to arrival. Patient was taken Advil for the symptoms. Complaining of nasal congestion, occasional cough, and sore throat. Denies any fevers or GI complaints. No known sick contacts. Patient states she tested negative for Covid 1 month ago. Refusing to get Covid vaccine. Review of Systems: Review of Systems: All other systems within normal limits except for as noted in the HPI Current Medications: Current Medications Medications (Trade) Dose Ordered Sig/Trung Start Time Stop Time Status Last Admin Dose Admin Guaifenesin/ Codeine Phosphate (Robitussin Ac) 5 ml 1X STAT 01/11/21 03:38 01/11/21 03:39 UNV Oxymetazoline HCl (Afrin) 2 spray 1X ONCE 01/11/21 03:45 01/11/21 03:46 UNV Allergies: Allergies: Allergies Coded Allergies Type Severity Reaction Last Updated Verified aspirin Allergy Intermediate Rash 12/09/20 Yes dextromethorphan Allergy Intermediate rash 12/09/20 Yes doxylamine Allergy Intermediate rash 12/09/20 Yes pseudoephedrine Allergy Intermediate rash 12/09/20 Yes Physical Exam: PE: Constitutional: Well developed, well nourished, no acute distress, non-toxic appearance. [] HENT: Normocephalic, atraumatic, bilateral external ears normal, nose normal. Congestion in both nares, no tenderness over sinuses [] Eyes: PERRLA, conjunctiva normal, no discharge. [] Neck: No rigidity, supple, no stridor. No cervical lymphadenopathy] Cardiovascular: Regular rate and rhythm, brisk cap refill [] Lungs & Thorax: Non labored symmetric respirations, no tachypnea or respiratory distress [] Abdomen: Soft, nondistended. Skin: Warm, dry, no erythema, no rash. [] Back: Unremarkable Extremities: No deformities, range of motion grossly intact, no lower extremity edema [] Neurologic: Alert and oriented X 3, no focal deficits noted. [] Psychologic: Affect normal, judgement normal, mood normal. [] Current Patient Data: Vital Signs: Vital Signs Date Time Temp Pulse Resp B/P (MAP) Pulse Ox O2 Delivery O2 Flow Rate FiO2 01/11/21 03:20 98.1 65 18 177/89 (118) 98 Room Air 98.1 EKG: EKG: [] Heart Score: C/O Chest Pain: No Risk Factors: Risk Factors: DM, Current or recent (<one month) smoker, HTN, HLP, family history of CAD, obesity. Risk Scores: Score 0 - 3: 2.5% MACE over next 6 weeks - Discharge Home Score 4 - 6: 20.3% MACE over next 6 weeks - Admit for Clinical Observation Score 7 - 10: 72.7% MACE over next 6 weeks - Early Invasive Strategies Radiology/Procedures: Radiology/Procedures: [] Course & Med Decision Making: Course & Med Decision Making Pertinent Labs and Imaging studies reviewed. (See chart for details) [] Dragon Disclaimer: Dragon Disclaimer: This electronic medical record was generated, in whole or in part, using a voice recognition dictation system. Departure Departure Impression: Primary Impression: Person under investigation for COVID-19 Additional Impression: Upper respiratory infection Disposition: HOME / SELF CARE / HOMELESS Condition: STABLE Referrals: UNKNOWN PCP NAME (PCP) Patient Instructions: Salt Water Gargle, Upper Respiratory Infection, Adult, [id number] Additional Instructions: Use mhmw-vna-kleobef medic treatments such as Mucinex (guaifenesin), Afrin (Oxymetazoline), or other izvg-vbs-ietxdli medication. Do not use Afrin for more than 3 days. May ask pharmacist regarding allergies. Recommend using humidifier at home and doing warm salt water gargles for throat pain. You have been tested for or diagnosed with COVID-19. It is an infection caused by a new type of coronavirus. COVID-19 will cause cold-like or mild flu symptoms in most. It can cause more severe symptoms like problems breathing in some. There is no treatment for COVID-19. The body will clear the infection over time. Self-care will help to ease discomfort. Steps to Take: Self-Care Rest as needed. Healthy habits may help you feel better. Steps include: Choose healthy foods including fruits and vegetables. Drink water throughout the day. Get plenty of sleep each night. If you smoke, try to quit. It may ease breathing. Avoid alcohol. Keep Others Healthy The virus can spread to others. Droplets are released every time you sneeze or cough. The droplets can get into the mouth, nose, or eyes of people near you and lead to in fection. To lower the chances of spreading COVID-19 to others: Stay at home until your doctor has said it is safe to leave. If you tested positive this will mean staying isolated until both of the following are true: At least 7 days have passed since the start of illness. You are free of fever for at least 72 hours without the use of medicine. During this time: - Avoid public areas, events, or transportation. Do not return to work or school until your doctor has said it is safe to do so. - Call ahead if you need to go to a medical center. Let them know you may have COVID-19. It will help them guide you where to go. They may also ask you to wear a facemask when you come to the office. - If you call for emergency medical services, let them know you may have COVID- 19. While at home: - Try to avoid close contact with others. Stay about 6 feet away. - If possible, spend most of your time in a separate room from others. - Use a face mask if you will be in close contact with others such as sharing a room or vehicle. - Have someone wipe down common surfaces in the home. Use household greeting card writer every day on areas like doorknobs, counters, or sinks. - Cough or sneeze into a tissue. Throw the tissue away right after use. If a tissue is not available, cough or sneeze into your elbow. - Wash your hands often. Wash them after sneezing or coughing. Use soap and water and wash for at least 20 seconds. Alcohol based hand commercial or institutional cleaner can be used if soap and water is not available. - Do not prepare food for others. Avoid sharing personal items like forks, spoons, or toothbrushes. - Avoid close contact with pets while you are sick. There is no evidence of the virus passing to pets. This is a safety step until more is known about this virus. Isolation can be frustrating. Social interaction can help. Keep in touch with friends and family through phone and tech options. You can still interact with others in your home, just keep a safe distance of about 6 feet. Follow-up: Your doctors office will check in with you to see if there are any changes in your health. You may be asked to keep track of symptoms to share with them. They will also let you know when you are clear to be in public again. Problems to Look Out For: Contact your doctor if your recovery is not going as you expect. Get emergency care if you have problems such as: - Trouble breathing - Nonstop chest pain or pressure - Changes in awareness, confusion, or problems waking - Lips or face have bluish color - Worsening of symptoms If you think you have an emergency, call for emergency medical services right away. As taken from [facility] Problem Qualifiers JOHNY YOUNG MD January 11, 2021 03:42
[2021-01-11] MEDS ORDERED: OXYMETAZOLINE 0.05% NASAL SPRAY 30ML BOTTLE. NS ONE (03:45)
[2021-01-11 03:51] VITALS: BP 166/81
--- NOTE | 2021-01-11 17:26 | NUR ---
IP: Attempted to contact pt concerning COVID results. No answer, left a voicemail to return the call.
--- NOTE | 2021-01-14 09:37 | NUR ---
IP: Attempted a second time to contact pt concerning covid test. No answer.
--- NOTE | 2021-01-14 16:01 | NUR ---
IP: Pt returned call. I informed her of her negative COVID test. Pt verbalized understanding.
== END 2021-01-11 04:01 | disposition home or self-care (01) ==
LOC: ER 03:17
DX: J06.9 Acute upper respiratory infection, unspecified (principal); Z20.822 Contact with and (suspected) exposure to COVID-19; E11.9 Type 2 diabetes mellitus without complications; E03.9 Hypothyroidism, unspecified; Z86.73 Personal history of transient ischemic attack (TIA), and cerebral infarction without residual deficits; Z88.6 Allergy status to analgesic agent; Z88.8 Allergy status to other drugs, medicaments and biological substances
CPT/HCPCS: 99283; U0003; U0005